=== PATIENT | female | born 1940 | race Caucasian/White ===

== ENCOUNTER → 2016-08-11 | Outpatient (CLI) | payer MEDICARE, BC ==
[~2016-08-11] MED LIST: DENOSUMAB 60 MG/ML 1 ML SYRINGE SQ ONE
[2016-08-11 07:52] VITALS: BP 168/77; PULSE 54; RESP 18; TEMP 97.6
== END | disposition home or self-care (01) ==
LOC: PROCWHC3 07:12
PROVIDERS: ATTEND Physician Assistant
DX: M81.0 Age-related osteoporosis without current pathological fracture (principal)
CPT/HCPCS: 96372; J0897

== ENCOUNTER → 2017-01-02 | Outpatient (CLI) | payer MEDICARE, BC ==
--- NOTE | 2017-01-03 10:35 | MM ---
Reason for exam: screening (asymptomatic). Last mammogram was performed 1 year ago. History: Patient is postmenopausal. Took estrogen for 5 years 1 month. Physical Findings: A clinical breast exam by your physician is recommended on an annual basis and results should be correlated with mammographic findings. MG 3D Screening Mammo W/Cad Bilateral CC and MLO view(s) were taken. Prior study comparison: December 31, 2015, bilateral MG 3d screening mammo w/cad. December 18, 2014, bilateral MG screening mammo w CAD. December 17, 2013, bilateral MG screening mammo w CAD. There are scattered fibroglandular densities. There is no discrete abnormality. ASSESSMENT: Negative, BI-RAD 1 RECOMMENDATION: Routine screening mammogram of both breasts in 1 year.
== END ==
LOC: RADMAMWWP 07:13
PROVIDERS: ATTEND Family Medicine
DX: Z12.31 Encounter for screening mammogram for malignant neoplasm of breast (principal)
CPT/HCPCS: 77063; G0202

== ENCOUNTER → 2017-02-23 | Outpatient (CLI) | payer MEDICARE, BC ==
[2017-02-23 10:22] VITALS: BP 145/67; RESP 16; TEMP 98.7
== END ==
LOC: PROCWHC3 10:02
PROVIDERS: ATTEND Family Medicine
DX: M81.0 Age-related osteoporosis without current pathological fracture (principal)
CPT/HCPCS: 96372; J0897

== ENCOUNTER → 2017-08-24 | Outpatient (CLI) | payer MEDICARE, BC ==
[2017-08-24 10:25] VITALS: BP 152/67; PULSE 74; RESP 16; TEMP 97.8
== END | disposition home or self-care (01) ==
LOC: PROCWHC3 10:04
PROVIDERS: ATTEND Family Medicine
DX: M81.0 Age-related osteoporosis without current pathological fracture (principal)
CPT/HCPCS: 96372; J0897

== ENCOUNTER → 2018-01-18 | Outpatient (CLI) | payer MEDICARE, BC ==
--- NOTE | 2018-01-24 09:49 | MM ---
Reason for exam: screening (asymptomatic). Last mammogram was performed 1 year and 1 month ago. History: Patient is postmenopausal. Took estrogen for 5 years 1 month. Physical Findings: A clinical breast exam by your physician is recommended on an annual basis and results should be correlated with mammographic findings. MG 3D Screening Mammo W/Cad Bilateral CC and MLO view(s) were taken. Prior study comparison: January 02, 2017, bilateral MG 3d screening mammo w/cad. December 31, 2015, bilateral MG 3d screening mammo w/cad. There are scattered fibroglandular densities. No significant changes when compared with prior studies. ASSESSMENT: Benign, BI-RAD 2 RECOMMENDATION: Routine screening mammogram of both breasts in 1 year.
== END | disposition home or self-care (01) ==
LOC: RADMAMWWP 13:43
PROVIDERS: ATTEND Family Medicine
DX: Z12.31 Encounter for screening mammogram for malignant neoplasm of breast (principal); Z78.0 Asymptomatic menopausal state
CPT/HCPCS: 77063; 77067

== ENCOUNTER → 2018-01-31 | Outpatient (CLI) | payer MEDICARE, BC ==
--- NOTE | 2018-01-31 17:39 | BD ---
EXAMINATION TYPE: Axial Bone Density DATE OF EXAM: 01/31/2018 COMPARISON: 2016 CLINICAL HISTORY: 77-year-old female screening, post menopausal without HRT Height: 5'1 Weight: 134 FRAX RISK QUESTIONS: Secondary Osteoporosis: RISK FACTORS HISTORY OF: Surgery to Spine/): l sp When: 40 years ago Postmenopausal woman: Lost more than 2 inches in height since high school: MEDICATIONS: Osteoporosis Medications: Which medication: shots How Lon years Additional Medications: blood pressure, cholesterol, pain Additional History: EXAM MEASUREMENTS: Bone mineral densitometry was performed using the [employer] System. Bone mineral density about the R hip (g/cm2): 0.724 Bone mineral density about the L hip (g/cm2): 0.808 T Score values are as follows: -----R Neck: -2.3 -----L Neck: -1.7 -----R Total: -2.8 -----L Total: -2.5 Bone mineral density has: Decreased -1.9% since study of: 12/31/2015 Bone mineral density about the L Wrist (g/cm2): 0.570 T Score values are as follows: -----Dist. R+U: -1.9 -----Prox. R+U: -2.0 -----Radius total: -1.7 IMPRESSION: Osteoporosis (T Score less than -2.5). There is increased fracture risk and therapy is usually indicated based on age. Re-Screen 1-2 years. NOTE: T-SCORE=SD OF THE YOUNG ADULT MEAN.
== END | disposition home or self-care (01) ==
LOC: RADBDWWP 06:52
PROVIDERS: ATTEND Family Medicine
DX: M81.0 Age-related osteoporosis without current pathological fracture (principal); Z78.0 Asymptomatic menopausal state
CPT/HCPCS: 77080

== ENCOUNTER → 2018-03-01 | Outpatient (CLI) | payer MEDICARE, BC ==
[2018-03-01 12:16] VITALS: BP 169/77; PULSE 66; RESP 16; TEMP 98
== END | disposition home or self-care (01) ==
LOC: PROCWHC3 11:35
PROVIDERS: ATTEND Family Medicine
DX: M81.0 Age-related osteoporosis without current pathological fracture (principal)
CPT/HCPCS: 96372; J0897

== ENCOUNTER → 2018-09-25 | Outpatient (CLI) | payer MEDICARE, BC ==
[2018-09-25 13:52] VITALS: BP 168/77; PULSE 60; RESP 16; TEMP 97.8
== END | disposition home or self-care (01) ==
LOC: PROCWHC3 13:16
PROVIDERS: ATTEND Family Medicine
DX: M81.0 Age-related osteoporosis without current pathological fracture (principal)
CPT/HCPCS: 96372; J0897

== ENCOUNTER → 2019-02-07 | Outpatient (CLI) | payer MEDICARE, BC ==
--- NOTE | 2019-02-08 09:03 | MM ---
Reason for exam: screening (asymptomatic). Last mammogram was performed 1 year and 1 month ago. History: Patient is postmenopausal. Took estrogen for 5 years 1 month. Physical Findings: A clinical breast exam by your physician is recommended on an annual basis and results should be correlated with mammographic findings. MG 3D Screening Mammo W/Cad Bilateral CC and MLO view(s) were taken. Prior study comparison: January 18, 2018, bilateral MG 3d screening mammo w/cad. January 02, 2017, bilateral MG 3d screening mammo w/cad. There are scattered fibroglandular densities. No suspicious abnormality. No significant changes when compared with prior studies. ASSESSMENT: Negative, BI-RAD 1 RECOMMENDATION: Routine screening mammogram of both breasts in 1 year.
== END | disposition home or self-care (01) ==
LOC: RADMAMWWP 08:59
PROVIDERS: ATTEND Family Medicine
DX: Z12.31 Encounter for screening mammogram for malignant neoplasm of breast (principal)
CPT/HCPCS: 77063; 77067

== ENCOUNTER → 2019-12-05 | Outpatient (CLI) | payer MEDICARE, BC ==
--- NOTE | 2019-12-05 10:07 | XR ---
EXAMINATION TYPE: XR knee complete RT DATE OF EXAM: 12/05/2019 COMPARISON: NONE HISTORY: Right knee pain TECHNIQUE: Three views are submitted. FINDINGS: Diffuse osteopenia with changes of chondrocalcinosis. There is arthropathy of the tricompartment join t spaces. Small suprapatellar bursal fluid collection. There is a linear lucency involving the articu lar portion of the medial tibia with no evidence of depression. IMPRESSION: 1. CT scan is recommended to assess the medial tibial plateau. There is a questionable linear lucency along the articular surface. 2. Diffuse osteopenia with arthropathy.
== END | disposition home or self-care (01) ==
LOC: RADXRMAIN 09:42
PROVIDERS: ATTEND Nurse Practitioner Family
DX: M85.861 Other specified disorders of bone density and structure, right lower leg (principal); M12.861 Other specific arthropathies, not elsewhere classified, right knee

== ENCOUNTER → 2019-12-16 | Outpatient (CLI) | payer MEDICARE, BC ==
--- NOTE | 2019-12-16 12:52 | CT ---
EXAMINATION TYPE: CT knee RT wo con DATE OF EXAM: 12/16/2019 COMPARISON: Right knee x-ray 05/15/2020 HISTORY: Right knee pain CT DLP: 374.7 mGycm Automated exposure control for dose reduction was used. FINDINGS: No significant joint effusion is evident. Small osseous spurs along the lateral patella. Lateral fem oral condylar spurring is noted. Some calcification is within the meniscus of the lateral meniscus. Minimal calcification within the m edial meniscus is present. No suspicious changes to suggest fracture identified. Three-D reconstructed images are performed. IMPRESSION: 1. ACUTE OR SUBACUTE FRACTURES EVIDENT. 2. MENISCAL CALCIFICATION PREDOMINANTLY LATERAL. CORRELATE FOR CALCIUM PYROPHOSPHATE DEPOSITION DISEA SE.
== END | disposition home or self-care (01) ==
LOC: RADCTMAIN 06:58
PROVIDERS: ATTEND Family Medicine
DX: M25.569 Pain in unspecified knee (principal)

== ENCOUNTER → 2020-04-02 | Outpatient (CLI) | payer MEDICARE, BC ==
--- NOTE | 2020-04-02 11:45 | MM ---
Reason for exam: screening (asymptomatic). Last mammogram was performed 1 year and 2 months ago. History: Patient is postmenopausal. Took estrogen for 5 years 1 month. Physical Findings: A clinical breast exam by your physician is recommended on an annual basis and results should be correlated with mammographic findings. MG 3D Screening Mammo W/Cad Bilateral CC and MLO view(s) were taken. XCCL view(s) were taken of the right breast. Prior study comparison: February 07, 2019, bilateral MG 3d screening mammo w/cad. January 18, 2018, bilateral MG 3d screening mammo w/cad. There are scattered fibroglandular densities. There is no discrete abnormality. ASSESSMENT: Negative, BI-RAD 1 RECOMMENDATION: Routine screening mammogram of both breasts in 1 year.
== END | disposition home or self-care (01) ==
LOC: RADMAMWWP 09:03
PROVIDERS: ATTEND Family Medicine
DX: Z12.31 Encounter for screening mammogram for malignant neoplasm of breast (principal)
CPT/HCPCS: 77063; 77067

== ENCOUNTER → 2020-05-14 | Outpatient (CLI) | payer MEDICARE, BC ==
--- NOTE | 2020-05-14 12:46 | BD ---
EXAMINATION TYPE: Axial Bone Density DATE OF EXAM: 05/14/2020 COMPARISON: NONE CLINICAL HISTORY: M [age] Height: 61.5 Weight: 130.8 FRAX RISK QUESTIONS: Alcohol (3 or more units per day): no Family History (Parent hip fracture): no Glucocorticoids (More than 3mos): no (Ex: prednisone, prednisolone, methylprednisolone, dexamethasone, and hydrocortisone). History of Fracture in Adulthood: no Secondary Osteoporosis: 1. Type 1 Diabetes: no 2. Hyperthyroidism: no 3. Menopause before 45: no 4. Malnutrition: no 5. Chronic liver disease: no Rheumatoid Arthritis: no Current Tobacco Use: no RISK FACTORS HISTORY OF: Spine Fracture: lumbar When: as a child Surgery to Spine/Hip(right/left)/Wrist (right/left): l spine When: 40 years ago Family History of Osteoporosis: no Active: yes Diet low in dairy products/other sources of calcium: yes Postmenopausal woman: around age 50 Lost more than 2 inches in height since high school: yes MEDICATIONS: cholesterol meds, blood pressure meds, arthritis meds Additional History: EXAM MEASUREMENTS: Bone mineral densitometry was performed using the [employer] System. Bone mineral density about the R hip (g/cm2): 0.754 Bone mineral density about the L hip (g/cm2): 0818 T Score values are as follows: -----R Neck: -2.0 -----L Neck: -1.6 -----R Total: -3.0 -----L Total: -2.1 Bone mineral density has: increased 2.4 % since study of: 01.31.2018 Bone mineral density about the L Wrist (g/cm2): 0.544 T Score values are as follows: -----Dist. R+U: -2.5 -----Prox. R+U: -1.9 -----Radius total: -2.2 Bone mineral density has: increased 0.9 % since study of: 01.31.2018 IMPRESSION: Osteopenia (T Score between -2.5 and -1). There is slightly increased risk of fracture and the patient may be considered for treatment. Re-Screen 2-5 years. NOTE: T-SCORE=SD OF THE YOUNG ADULT MEAN.
== END | disposition home or self-care (01) ==
LOC: RADBDWWP 07:48
PROVIDERS: ATTEND Family Medicine
DX: M85.80 Other specified disorders of bone density and structure, unspecified site (principal)
CPT/HCPCS: 77080

== ENCOUNTER 2021-05-04 17:20 | Emergency (ER) | payer MEDICARE, BC ==
[2021-05-04] MEDS ORDERED: ONDANSETRON 4 MG/2 ML VIAL IVP STA (20:05)
[2021-05-04] MEDS ORDERED: SODIUM CHLORIDE 0.9% 500 ML 500 ML IV STA (20:05)
[2021-05-04] MEDS ORDERED: MORPHINE SULFATE 2 MG/ML SYRINGE IVP STA (20:05)
[2021-05-04 20:08] VITALS: RESP 18; TEMP 102.3
[2021-05-04 20:30] LABS: Basophils % (A) 0 %; Eosinophils # (A) 0.1 k/uL (0-0.7); Eosinophils % (A) 1 %; HCT 38.9 % (34.0-46.0); HGB 13.4 gm/dL (11.4-16.0); Lymphocytes # (A) 0.5 k/uL (1.0-4.8); Lymphocytes % (A) 5 %; MCH 32.6 pg (25.0-35.0); MCHC 34.3 g/dL (31.0-37.0); MCV 94.9 fL (80.0-100.0); Mean Platelet Volume 8.8; Monocytes # (A) 0.4 k/uL (0-1.0); Monocytes % (A) 4 %; Neutrophils # (A) 8.9 k/uL (1.3-7.7); Neutrophils % (A) 90 %; Platelet Count 220 k/uL (150-450)
[2021-05-04 20:33] LABS: Appearance,Urine Clear (Clear); Bilirubin,Urine 1+ (Negative); Blood,Urine Negative (Negative); Color,Urine Dark Yellow; Glucose,Urine (UA) Negative (Negative); Ketones,Urine Negative (Negative); Leukocyte Esterase,Urine Moderate (Negative); Mucus,Urine Rare /hpf; Nitrite,Urine Negative (Negative); PH, Urine 5.5 (5.0-8.0); Protein,Urine 1+ (Negative); RBC,Urine 2 /hpf (0-5); Specific Gravity,Urine 1.024 (1.001-1.035); Squamous Epithelial Cell,Urine <1 /hpf (0-4); WBC,Urine 4 /hpf (0-5)
[2021-05-04 20:47] LABS: Albumin 3.7 g/dL (3.5-5.0); Calcium 8.8 mg/dL (8.4-10.2); Total Bilirubin 4.2 mg/dL (0.2-1.3); Total Protein 6.9 g/dL (6.3-8.2)
[2021-05-04 21:02] LABS: Potassium 4.1 mmol/L (3.5-5.1)
--- NOTE | 2021-05-04 21:56 | CT ---
EXAMINATION TYPE: CT abdomen pelvis w con DATE OF EXAM: 05/04/2021 COMPARISON: None HISTORY: upper abd pain CT DLP: 738.2 mGycm Automated exposure control for dose reduction was used. CONTRAST: Performed with IV Contrast, patient injected with 100 mL of Isovue 300. Images obtained from the diaphragm to the floor the pelvis with IV contrast. There is subsegmental atelectasis at the lung bases. Heart is enlarged. There is no pericardial effus ion. Gallbladder is large and measures 4.6 m in diameter. Bile ducts are not dilated. Liver shows no focal defect. Spleen is intact. There is no pancreatic mass. There is no adrenal mass. Kidneys show satisfactory contrast opacification. There is no hydronephrosi s. Bladder distends smoothly. There is no inguinal hernia. There is numerous sigmoid diverticula. The re is no diverticulitis. The lumbar vertebra show a dextroscoliotic deformity. There is multilevel spondylotic changes. There is no compression fracture. There is posterior fusion surgery in the lower lumbar spine. The bony pel vis is intact. Hip joints are intact. IMPRESSION: Lumbar dextroscoliosis and spondylotic changes. Sigmoid diverticulosis. Large gallbladder could relat e to gallbladder dysfunction.
[2021-05-04] MEDS ORDERED: ACETAMINOPHEN TAB 500 MG TAB PO STA (22:07)
[2021-05-04] MEDS ORDERED: PIPERACILLIN-TAZOBACTAM 3.375 GM in SODIUM CHLORIDE 0.9% 100 ML IVPB ONE (22:15)
--- NOTE | 2021-05-04 22:57 | ED ---
Abdominal Pain HPI - General Chief Complaint: Abdominal Pain Stated Complaint: abd pain Time Seen by Provider: 05/04/21 19:21 Source: patient Mode of arrival: ambulatory Limitations: no limitations - History of Present Illness Initial Comments: 81 year-old female patient presents for one week history of upper abdominal pain, nausea, and vomiting. States that today pain worsened so she came in for evaluation. She denies radiation of pain to her back. Denies known fever or chills. Denies chest pain or shortness of breath. She denies any hematuria, dys uria, urinary frequency, urinary urgency. Denies any constipation or diarrhea. Denies history of abdominal surgery. Patient denies any recent rash, cough, back pain, numbness, tingling, dizziness, weakness, headache, visual changes, or any other complaints. - Related Data Home Medications Medication Instructions Recorded Confirmed Meloxicam 7.5 mg PO BID 02/04/16 05/04/21 Calcium Carbonate/Vitamin D3 1 tab PO DAILY 08/11/16 05/04/21 [Calcium 600-Vit D3 400 Caplet] Cetirizine HCl [Zyrtec] 10 mg PO HS 08/11/16 05/04/21 Montelukast [Singulair] 10 mg PO HS 08/11/16 05/04/21 Simvastatin [Zocor] 40 mg PO HS 08/11/16 05/04/21 Acetaminophen/Diphenhydramine 1 tab PO HS 06/09/17 05/04/21 [Tylenol PM 500-25mg] Ascorbic Acid [Vitamin C] 1,000 mg PO DAILY 06/09/17 05/04/21 Multivit with Calcium,Iron,Min 1 tab PO DAILY 06/09/17 05/04/21 [Women's Multivitamin] Cholecalciferol [Vitamin D3 (25 50 mcg PO DAILY 05/04/21 05/04/21 Mcg = 1000 Iu)] Escitalopram [Lexapro] 10 mg PO DAILY 05/04/21 05/04/21 Mirabegron [Myrbetriq] 25 mg PO DAILY 05/04/21 05/04/21 Vit C/E/Zn/Coppr/Lutein/Zeaxan 1 cap PO BID 05/04/21 05/04/21 [Preservision Areds 2 Softgel] Allergies Allergy/AdvReac Type Severity Reaction Status Date / Time cephalexin monohydrate Allergy Rash/Hives Verified 05/04/21 21:50 [From Keflex] Review of Systems ROS Statement: Those systems with pertinent positive or pertinent negative responses have been documented in the HPI. ROS Other: All systems not noted in ROS Statement are negative. Past Medical History Past Medical History: Hypertension Additional Past Medical History / Comment(s): OSTEOPOROSIS History of Any Multi-Drug Resistant Organisms: None Reported Past Surgical History: Adenoidectomy, Appendectomy, Back Surgery, Hysterectomy, Tonsillectomy Past Anesthesia/Blood Transfusion Reactions: No Reported Reaction Past Psychological History: Anxiety Smoking Status: Never smoker Past Alcohol Use History: None Reported Past Drug Use History: None Reported - Past Family History Father Family Medical History: Coronary Artery Disease (CAD) Additional Family Medical History / Comment(s): ETOH Mother Family Medical History: Coronary Artery Disease (CAD) Brother(s) Family Medical History: Coronary Artery Disease (CAD), Dementia Additional Family Medical History / Comment(s): ONE BROTHER - SELF CATH Sister(s) Family Medical History: Dementia, Diabetes Mellitus Additional Family Medical History / Comment(s): ONE SISTER - PARANOID SCHIZO General Exam Limitations: no limitations General appearance: alert, in no apparent distress Eye exam: Present: normal appearance, PERRL, EOMI. Absent: scleral icterus, conjunctival injection, periorbital swelling ENT exam: Present: normal exam, normal oropharynx, mucous membranes moist Respiratory exam: Present: normal lung sounds bilaterally. Absent: respiratory distress, wheezes, rales, rhonchi, stridor Cardiovascular Exam: Present: tachycardia, irregular rhythm, normal heart sounds. Absent: systolic murmur, diastolic murmur, rubs, gallop, clicks GI/Abdominal exam: Present: soft, tenderness (Midepigastric), normal bowel sounds. Absent: distended, guarding, rebound, rigid Neurological exam: Present: alert, oriented X3, CN II-XII intact Psychiatric exam: Present: normal affect, normal mood Skin exam: Present: warm, dry, intact, normal color. Absent: rash Course Vital Signs 05/04/21 05/04/21 05/04/21 17:25 20:06 21:44 Temperature 98.1 F 102.3 F H Pulse Rate 90 120 H 91 Respiratory 20 18 18 Rate Blood Pressure 156/87 102/72 99/54 O2 Sat by Pulse 100 98 96 Oximetry Medical Decision Making - Medical Decision Making 81-year-old female patient presented to the emergency department today for evaluation of midepigastric abdominal pain and nausea for the last week. Physical examination did reveal midepigastric tenderness. Labs reviewed and did reveal bilirubin 4.2, AST 2:15, a LT 374, alk phos 261. Lipase is elevated at 870. Urinalysis showed no sign of infection. She tested negative for COVID-19. Upon arrival patient was febrile 10 2F. She was found to be A. fib on EKG. She is given IV fluids, pain medication, antipyretic. Upon reevaluation seems that she has to converted to sinus rhythm on the monitor. We will start antibiotics. We do not have GI coverage at this time. Gerardo Summers refused transfer at this time. Dr. Adonis Rose did accept transfer to [facility]. Patient is agreeable with this plan. - Lab Data Result diagrams: 05/04/21 20:09 05/04/21 20:09 Lab Results 05/04/21 05/04/21 05/04/21 Range/Units 20:09 20:09 20:09 WBC 10.0 (3.8-10.6) k/uL RBC 4.10 (3.80-5.40) m/uL Hgb 13.4 (11.4-16.0) gm/dL Hct 38.9 (34.0-46.0) % MCV 94.9 (80.0-100.0) fL MCH 32.6 (25.0-35.0) pg MCHC 34.3 (31.0-37.0) g/dL RDW 14.0 (11.5-15.5) % Plt Count 220 (150-450) k/uL MPV 8.8 Neutrophils % 90 % Lymphocytes % 5 % Monocytes % 4 % Eosinophils % 1 % Basophils % 0 % Neutrophils # 8.9 H (1.3-7.7) k/uL Lymphocytes # 0.5 L (1.0-4.8) k/uL Monocytes # 0.4 (0-1.0) k/uL Eosinophils # 0.1 (0-0.7) k/uL Basophils # 0.0 (0-0.2) k/uL Sodium 137 (137-145) mmol/L Potassium 4.1 (3.5-5.1) mmol/L Chloride 107 (98-107) mmol/L Carbon Dioxide 20 L (22-30) mmol/L Anion Gap 10 mmol/L BUN 33 H (7-17) mg/dL Creatinine 0.76 (0.52-1.04) mg/dL Est GFR (CKD-EPI)AfAm 86 (>60 ml/min/1.73 sqM) Est GFR (CKD-EPI)NonAf 74 (>60 ml/min/1.73 sqM) Glucose 113 H (74-99) mg/dL Plasma Lactic Acid Marcos (0.7-2.0) mmol/L Calcium 8.8 (8.4-10.2) mg/dL Total Bilirubin 4.2 H (0.2-1.3) mg/dL AST 215 H (14-36) U/L ALT 374 H (4-34) U/L Alkaline Phosphatase 261 H (38-126) U/L Troponin I (0.000-0.034) ng/mL Total Protein 6.9 (6.3-8.2) g/dL Albumin 3.7 (3.5-5.0) g/dL Lipase 870 H (23-300) U/L TSH (0.465-4.680) mIU/L Urine Color Dark Yellow Urine Appearance Clear (Clear) Urine pH 5.5 (5.0-8.0) Ur Specific Justice 1.024 (1.001-1.035) Urine Protein 1+ H (Negative) Urine Glucose (UA) Negative (Negative) Urine Ketones Negative (Negative) Urine Blood Negative (Negative) Urine Nitrite Negative (Negative) Urine Bilirubin 1+ H (Negative) Urine Urobilinogen 3.0 (<2.0) mg/dL Ur Leukocyte Esterase Moderate H (Negative) Urine RBC 2 (0-5) /hpf Urine WBC 4 (0-5) /hpf Ur Squamous Epith Cells <1 (0-4) /hpf Urine Mucus Rare H (None) /hpf Coronavirus (PCR) (Not Detectd) 05/04/21 05/04/21 05/04/21 Range/Units 20:09 20:09 20:09 WBC (3.8-10.6) k/uL RBC (3.80-5.40) m/uL Hgb (11.4-16.0) gm/dL Hct (34.0-46.0) % MCV (80.0-100.0) fL MCH (25.0-35.0) pg MCHC (31.0-37.0) g/dL RDW (11.5-15.5) % Plt Count (150-450) k/uL MPV Neutrophils % % Lymphocytes % % Monocytes % % Eosinophils % % Basophils % % Neutrophils # (1.3-7.7) k/uL Lymphocytes # (1.0-4.8) k/uL Monocytes # (0-1.0) k/uL Eosinophils # (0-0.7) k/uL Basophils # (0-0.2) k/uL Sodium (137-145) mmol/L Potassium (3.5-5.1) mmol/L Chloride (98-107) mmol/L Carbon Dioxide (22-30) mmol/L Anion Gap mmol/L BUN (7-17) mg/dL Creatinine (0.52-1.04) mg/dL Est GFR (CKD-EPI)AfAm (>60 ml/min/1.73 sqM) Est GFR (CKD-EPI)NonAf (>60 ml/min/1.73 sqM) Glucose (74-99) mg/dL Plasma Lactic Acid Marcos 1.4 (0.7-2.0) mmol/L Calcium (8.4-10.2) mg/dL Total Bilirubin (0.2-1.3) mg/dL AST (14-36) U/L ALT (4-34) U/L Alkaline Phosphatase (38-126) U/L Troponin I 0.026 (0.000-0.034) ng/mL Total Protein (6.3-8.2) g/dL Albumin (3.5-5.0) g/dL Lipase (23-300) U/L TSH 2.320 (0.465-4.680) mIU/L Urine Color Urine Appearance (Clear) Urine pH (5.0-8.0) Ur Specific Justice (1.001-1.035) Urine Protein (Negative) Urine Glucose (UA) (Negative) Urine Ketones (Negative) Urine Blood (Negative) Urine Nitrite (Negative) Urine Bilirubin (Negative) Urine Urobilinogen (<2.0) mg/dL Ur Leukocyte Esterase (Negative) Urine RBC (0-5) /hpf Urine WBC (0-5) /hpf Ur Squamous Epith Cells (0-4) /hpf Urine Mucus (None) /hpf Coronavirus (PCR) (Not Detectd) 05/04/21 Range/Units 20:11 WBC (3.8-10.6) k/uL RBC (3.80-5.40) m/uL Hgb (11.4-16.0) gm/dL Hct (34.0-46.0) % MCV (80.0-100.0) fL MCH (25.0-35.0) pg MCHC (31.0-37.0) g/dL RDW (11.5-15.5) % Plt Count (150-450) k/uL MPV Neutrophils % % Lymphocytes % % Monocytes % % Eosinophils % % Basophils % % Neutrophils # (1.3-7.7) k/uL Lymphocytes # (1.0-4.8) k/uL Monocytes # (0-1.0) k/uL Eosinophils # (0-0.7) k/uL Basophils # (0-0.2) k/uL Sodium (137-145) mmol/L Potassium (3.5-5.1) mmol/L Chloride (98-107) mmol/L Carbon Dioxide (22-30) mmol/L Anion Gap mmol/L BUN (7-17) mg/dL Creatinine (0.52-1.04) mg/dL Est GFR (CKD-EPI)AfAm (>60 ml/min/1.73 sqM) Est GFR (CKD-EPI)NonAf (>60 ml/min/1.73 sqM) Glucose (74-99) mg/dL Plasma Lactic Acid Marcos (0.7-2.0) mmol/L Calcium (8.4-10.2) mg/dL Total Bilirubin (0.2-1.3) mg/dL AST (14-36) U/L ALT (4-34) U/L Alkaline Phosphatase (38-126) U/L Troponin I (0.000-0.034) ng/mL Total Protein (6.3-8.2) g/dL Albumin (3.5-5.0) g/dL Lipase (23-300) U/L TSH (0.465-4.680) mIU/L Urine Color Urine Appearance (Clear) Urine pH (5.0-8.0) Ur Specific Justice (1.001-1.035) Urine Protein (Negative) Urine Glucose (UA) (Negative) Urine Ketones (Negative) Urine Blood (Negative) Urine Nitrite (Negative) Urine Bilirubin (Negative) Urine Urobilinogen (<2.0) mg/dL Ur Leukocyte Esterase (Negative) Urine RBC (0-5) /hpf Urine WBC (0-5) /hpf Ur Squamous Epith Cells (0-4) /hpf Urine Mucus (None) /hpf Coronavirus (PCR) Not Detected (Not Detectd) - EKG Data -: EKG Interpreted by Me EKG Comments: EKG obtained at 2030 shows A. fib with RVR with a rate of 135, QR congregational 98, QT 324, QTC 486. No evidence of ST elevation or depression. EKG #2 obtained at 23 shows normal sinus rhythm with a ventricular rate of 89, WI interval 168, QR congregational 94, QT 360, QTC 438. No evidence of ST elevation or depression. - Radiology Data Radiology results: report reviewed, image reviewed CT abdomen and pelvis with contrast was obtained. Report reviewed in its entirety. Impression by Dr. Bhakta shows lumbar dextroscoliosis spondylotic changes. Sigmoid diverticulosis. Large gallbladder could relate to gallbladder dysfunction. Disposition Clinical Impression: Choledocholithiasis, Cholecystitis Disposition: OTHER INSTITUTION NOT DEFINED Condition: Serious Referrals: Mazin Kumar MD [Primary Care Provider] - 1-2 days - Out of Hospital Transfer - Req. Specs Out of Hospital Transfer - Requested Specifics: Other Emergency Center ([facility])
[2021-05-05 00:50] VITALS: BP 124/65; PULSE 89
[2021-05-05] MEDS ORDERED: PIPERACILLIN-TAZOBACTAM 3.375 GM in SODIUM CHLORIDE 0.9% 100 ML IVPB SCH ×3 (09:00)
== END 2021-05-05 01:11 | disposition other institution (70) ==
LOC: EC 17:20
DX: K80.50 Calculus of bile duct without cholangitis or cholecystitis without obstruction (principal); I10 Essential (primary) hypertension; M81.0 Age-related osteoporosis without current pathological fracture; F41.9 Anxiety disorder, unspecified; Z88.1 Allergy status to other antibiotic agents; Z90.49 Acquired absence of other specified parts of digestive tract; Z90.710 Acquired absence of both cervix and uterus; Z90.89 Acquired absence of other organs; Z20.822 Contact with and (suspected) exposure to COVID-19
CPT/HCPCS: 99285; 96374; 96375; 36415; 93005; 80053; 84443; 83605; 83690; 84484; 85025; 81001; 87635; 74177; J2543; J2405; J2270; Q9967

== ENCOUNTER → 2021-07-08 | Outpatient (CLI) | payer MEDICARE, BC ==
--- NOTE | 2021-07-12 10:36 | MM ---
Reason for exam: screening (asymptomatic). Last mammogram was performed 1 year and 3 months ago. History: Patient is postmenopausal. Took estrogen for 5 years 1 month. Physical Findings: A clinical breast exam by your physician is recommended on an annual basis and results should be correlated with mammographic findings. MG 3D Screening Mammo W/Cad Bilateral CC and MLO view(s) were taken. Prior study comparison: April 02, 2020, bilateral MG 3d screening mammo w/cad. February 07, 2019, bilateral MG 3d screening mammo w/cad. There are scattered fibroglandular densities. New central anterior asymmetric density left CC view anterior to middle depth. ASSESSMENT: Incomplete: need additional imaging evaluation, BI-RAD 0 RECOMMENDATION: Special view mammogram of the left breast. (3D) If lesion persists on supplemental views, image directed ultrasound is recommended. [facility] will attempt to contact patient to return for supplemental views and ultrasound if indicated.
== END | disposition home or self-care (01) ==
LOC: RADMAMWWP 09:57
PROVIDERS: ATTEND Family Medicine
DX: Z12.31 Encounter for screening mammogram for malignant neoplasm of breast (principal); Z78.0 Asymptomatic menopausal state
CPT/HCPCS: 77063; 77067

== ENCOUNTER → 2021-07-15 | Outpatient (CLI) | payer MEDICARE, BC ==
--- NOTE | 2021-07-15 11:12 | MM ---
Reason for exam: additional evaluation requested from abnormal screening. Last mammogram was performed less than 1 month ago. History: Patient is postmenopausal. Took estrogen for 5 years 1 month. Physical Findings: Nurse did not find any significant physical abnormalities on exam. MG 3D Work Up W/Cad LT Spot compression CC, spot compression MLO, and ML view(s) were taken of the left breast. Prior study comparison: July 08, 2021, bilateral MG 3d screening mammo w/cad. April 02, 2020, bilateral MG 3d screening mammo w/cad. The breast tissue is heterogeneously dense. This may lower the sensitivity of mammography. These results were verbally communicated with the patient and result sheet given to the patient on 07/15/21. ASSESSMENT: Probably benign, BI-RAD 3 RECOMMENDATION: Follow-up diagnostic mammogram of the left breast in 6 months.
== END | disposition home or self-care (01) ==
LOC: RADMAMWWP 08:52
PROVIDERS: ATTEND Family Medicine
DX: R92.8 Other abnormal and inconclusive findings on diagnostic imaging of breast (principal); Z78.0 Asymptomatic menopausal state
CPT/HCPCS: 77065; G0279; 77061

== ENCOUNTER → 2021-10-21 | Outpatient (CLI) | payer MEDICARE, BC ==
--- NOTE | 2021-10-21 16:59 | XR ---
EXAMINATION TYPE: XR chest 2V DATE OF EXAM: 10/21/2021 COMPARISON: Chest x-ray 09/30/2021 HISTORY: I 11.0 TECHNIQUE: Frontal and lateral views of the chest are obtained. FINDINGS: There is no focal air space opacity, pleural effusion, or pneumothorax seen. The cardiac silhouette size is within normal limits. The osseous structures are intact, metallic screw is prese nt posterior to the upper lumbar spine. There is some elevation of right hemidiaphragm as on prior. T horacic spondylosis is noted, there may be a spinal curvature. IMPRESSION: No acute cardiopulmonary process. There is improvement in aeration as compared to prior exam.
== END | disposition home or self-care (01) ==
LOC: RADXRMAIN 15:23
PROVIDERS: ATTEND Family Medicine
DX: I11.0 Hypertensive heart disease with heart failure (principal); I50.9 Heart failure, unspecified
CPT/HCPCS: 71046

== ENCOUNTER → 2021-11-18 | Day surgery (SDC) | payer MEDICARE, BC ==
[2021-11-17 10:21] VITALS: BMI 24.0
[~2021-11-18] MED LIST changes: +ALPRAZolam 0.25 MG TAB PO PRN; +ALPRAZolam 0.5 MG TAB PO PRN; +ASPIRIN 325 MG TAB PO ONE; +ATORVASTATIN 80 MG TAB PO ONE; -DENOSUMAB 60 MG/ML 1 ML SYRINGE SQ ONE; +HEPARIN SODIUM 1,000 UN/ML (10ML VL) IV ONE; +HEPARIN SODIUM 1,000 UN/ML (10ML VL) ONE; +HEPARIN SODIUM,PORCINE 10,000 UNIT in SODIUM CHLORIDE 0.9% 1,000 ML IRRIGATION PRN; +HEPARIN SODIUM,PORCINE 2,500 UNIT in SODIUM CHLORIDE 0.9% 250 ML IRRIGATION PRN; +IOPAMIDOL-370 125ML BTL INJ ONE; +LIDOCAINE 1% PF 10 MG/ML (5 ML AMP) SQ ONE; +MIDAZOLAM 2 MG/2 ML VIAL IV ONE; +NITROGLYCERIN SL TABS 0.4 MG TAB SUBLINGUAL PRN; +SODIUM CHLORIDE 0.9% 1,000 ML in EMPTY BAG 1 BAG IV ONE; +VERAPAMIL 2.5 MG/ML 2 ML AMP ONE; +VERAPAMIL SYRINGE (5 MG/10 ML) INTRAARTER ONE; +fentaNYL (PF) 50 MCG/ML 2 ML AMP IV ONE; +fentaNYL (PF) 50 MCG/ML 2 ML AMP ONE
[2021-11-18 06:44] VITALS: RESP 16; TEMP 97.4
--- NOTE | 2021-11-18 07:53 | P.CARDCATH ---
Description of Procedure: PROCEDURES PERFORMED: Left heart catheterization, bilateral coronary angiography INDICATION: Cardiomyopathy CONSENT:I have discussed the risks, benefits and alternative therapies for the above-mentioned procedure and for both sedation/analgesia as well as necessary blood product administration, if indicated, as they pertain to this patient. The patient has indicated understanding and acceptance of the risks and procedures discussed. PROCEDURE: After the risks, benefits and alternatives of the above mentioned procedure explained in detail with the patient, informed consent was obtained. Patient was taken to the catheterization lab and prepped and draped in usual fashion. 1% lidocaine was used to anesthetize the right radial artery. A 6- Czech sheath was placed in the right radial artery using modified Seldinger technique. Left coronary angiography was performed with a 5-Czech JL 3.5 catheter and right coronary angiography was performed with a 5-Czech JR5 catheter in various views. A 5-Czech FR5 catheter was inserted into the left ventricle and pressure measurements were obtained. The right radial sheath was removed and a TR band was placed with hemostasis achieved. The patient tolerated the procedure well. Patient was transported back to the post catheterization holding area in stable condition. Conscious Sedation: Patient was monitored under the direct supervision of vision of myself for conscious sedation using Versed and fentanyl for a total duration of 17 minutes HEMODYNAMICS: Aortic: 123/77 LV: 125/1, LVEDP 17 SELECTIVE CORONARY ARTERIOGRAPHY: LEFT MAIN: The left main is a large caliber vessel which bifurcates into the LAD and circumflex. There is no significant stenosis. LEFT ANTERIOR DESCENDING CORONARY ARTERY: LAD is a large caliber vessel which wraps around to the apex. There is no significant stenosis. LEFT CIRCUMFLEX CORONARY ARTERY: Left circumflex is a moderate caliber vessel without significant stenosis. RIGHT CORONARY ARTERY: The right coronary artery is a large caliber vessel which gives off a PDA and PLV branch and is the dominant vessel. There is no signific ant stenosis. FINAL IMPRESSION: 1. Normal coronary arteries as described above. 2. Mildly elevated left sided filling pressures PLAN: 1. Aggressive risk factor modification per most recent ACC/AHA guidelines. 2. Follow-up in the office in 1-2 weeks.
[2021-11-18 08:52] VITALS: BP 153/72; PULSE 72
== END ==
LOC: CATHCVL 05:57
PROVIDERS: ATTEND Internal Medicine
DX: I42.9 Cardiomyopathy, unspecified (principal); I48.91 Unspecified atrial fibrillation; I08.1 Rheumatic disorders of both mitral and tricuspid valves; E78.5 Hyperlipidemia, unspecified; Z20.822 Contact with and (suspected) exposure to COVID-19; I11.0 Hypertensive heart disease with heart failure; I50.22 Chronic systolic (congestive) heart failure; Z82.49 Family history of ischemic heart disease and other diseases of the circulatory system; Z79.01 Long term (current) use of anticoagulants; Z79.1 Long term (current) use of non-steroidal anti-inflammatories (NSAID); Z79.899 Other long term (current) drug therapy; Z88.1 Allergy status to other antibiotic agents
CPT/HCPCS: 93458; 87635; C1894; J2250; J2001; J3010; J1644; Q9967

== ENCOUNTER 2021-12-06 04:48 | Emergency (ER) | payer MEDICARE, BC ==
[2021-12-06 04:58] VITALS: BP 134/83; PULSE 90; RESP 19; TEMP 98
--- NOTE | 2021-12-06 05:10 | ED ---
Fall HPI - General Chief Complaint: Fall Stated Complaint: Fall, Hip Injury Time Seen by Provider: 12/06/21 05:03 Source: patient, RN notes reviewed, old records reviewed Mode of arrival: ambulatory Limitations: no limitations - History of Present Illness Initial Comments: This is an 81-year-old female who presents today for evaluation after a fall. Patient had a fall prior to arrival with left hip pain severe left hip pain and tenderness tenderness with movement tenderness with palpation. Patient's presenting about 12 hours after this fall as follows getting out of the car earlier today. 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 Patient took Tylenol which did mildly help. No other injuries noted she has no loss of consciousness maybe some mild elbow pain but that is improved. 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 Witnessed: yes, by family Place Fall Occurred: home Loss of Consciousness: none Prolonged Down Time?: no Symptoms Prior to Fall: none Location - Extremities: Left: Thigh Severity: moderate Severity scale (1-10): 7 Quality: sharp Context: tripped/slipped Associated Symptoms: denies - Related Data Home Medications Medication Instructions Recorded Confirmed Meloxicam 7.5 mg PO BID 02/04/16 11/18/21 Calcium Carbonate/Vitamin D3 1 tab PO DAILY 08/11/16 11/18/21 [Calcium 600-Vit D3 400 Caplet] Cetirizine HCl [Zyrtec] 10 mg PO HS 08/11/16 11/18/21 Montelukast [Singulair] 10 mg PO HS 08/11/16 11/18/21 Simvastatin [Zocor] 40 mg PO HS 08/11/16 11/18/21 Acetaminophen/Diphenhydramine 1 tab PO HS 06/09/17 11/18/21 [Tylenol PM 500-25mg] Ascorbic Acid [Vitamin C] 1,000 mg PO DAILY 06/09/17 11/18/21 Multivit with Calcium,Iron,Min 1 tab PO DAILY 06/09/17 11/18/21 [Women's Multivitamin] Cholecalciferol [Vitamin D3 (25 50 mcg PO DAILY 05/04/21 11/18/21 Mcg = 1000 Iu)] Escitalopram [Lexapro] 10 mg PO DAILY 05/04/21 11/18/21 Mirabegron [Myrbetriq] 25 mg PO DAILY 05/04/21 11/18/21 Vit C/E/Zn/Coppr/Lutein/Zeaxan 1 cap PO BID 05/04/21 11/18/21 [Preservision Areds 2 Softgel] Apixaban [Eliquis] 5 mg PO BID 11/18/21 11/18/21 Furosemide [Lasix] 20 mg PO DAILY 11/18/21 11/18/21 Metoprolol Succinate (ER) [Toprol 25 mg PO DAILY 11/18/21 11/18/21 Xl] Allergies Allergy/AdvReac Type Severity Reaction Status Date / Time cephalexin monohydrate Allergy Rash/Hives Verified 12/06/21 04:58 [From [facility] [employer] [facility]] Review of Systems ROS Statement: Those systems with pertinent positive or pertinent negative responses have been documented in the HPI. ROS Other: All systems not noted in ROS Statement are negative. Past Medical History Past Medical History: Hypertension Additional Past Medical History / Comment(s): OSTEOPOROSIS, "heart doesnt beat right" History of Any Multi-Drug Resistant Organisms: None Reported Past Surgical History: Adenoidectomy, Appendectomy, Back Surgery, Cholecystectomy, Hysterectomy, Tonsillectomy Past Anesthesia/Blood Transfusion Reactions: No Reported Reaction Past Psychological History: Anxiety Smoking Status: Never smoker Past Alcohol Use History: None Reported Past Drug Use History: None Reported - Past Family History Father Family Medical History: Coronary Artery Disease (CAD) Additional Family Medical History / Comment(s): Alcohol Abuse. Mother Family Medical History: Coronary Artery Disease (CAD) Brother(s) Family Medical History: Coronary Artery Disease (CAD), Dementia Additional Family Medical History / Comment(s): ONE BROTHER - SELF CATH Sister(s) Family Medical History: Dementia, Diabetes Mellitus Additional Family Medical History / Comment(s): ONE SISTER - PARANOID SCHIZOPHRENIA. Daughter(s) Family Medical History: Deep Vein Thrombosis (DVT), Pulmonary Embolus General Exam General appearance: alert, in no apparent distress Head exam: Present: atraumatic, normocephalic, normal inspection Eye exam: Present: normal appearance, PERRL, EOMI. Absent: scleral icterus, conjunctival injection, periorbital swelling ENT exam: Present: normal exam, mucous membranes moist Neck exam: Present: normal inspection. Absent: tenderness, meningismus, ly mphadenopathy Respiratory exam: Present: normal lung sounds bilaterally. Absent: respiratory distress, wheezes, rales, rhonchi, stridor Cardiovascular Exam: Present: regular rate, normal rhythm, normal heart sounds. Absent: systolic murmur, diastolic murmur, rubs, gallop, clicks GI/Abdominal exam: Present: soft, normal bowel sounds. Absent: distended, tenderness, guarding, rebound, rigid Extremities exam: Present: normal inspection, full ROM, tenderness (Left hip tenderness), normal capillary refill. Absent: pedal edema, joint swelling, calf tenderness Back exam: Present: normal inspection Neurological exam: Present: alert, oriented X3, CN II-XII intact Psychiatric exam: Present: normal affect, normal mood Skin exam: Present: warm, dry, intact, normal color. Absent: rash Course Vital Signs 12/06/21 04:52 Temperature 98 F Pulse Rate 90 Respiratory 19 Rate Blood Pressure 134/83 O2 Sat by Pulse 98 Oximetry - Reevaluation(s) Reevaluation #1: 12/06/21 05:30 Medical records reviewed Reevaluation #2: 12/06/21 05:30 Patient informed results and questions answered Reevaluation #3: 12/06/21 05:30 Patient continues to refuse anything for pain Medical Decision Making - Medical Decision Making 81 female to the ER status post fall trip and fall while 12 hours prior to arrival. Patient does have contusion left hip unable to stand or ambulate at full strength patient given a work note can be discharged home no fracture she is able to ambulate but it is painful - Radiology Data Radiology results: report reviewed (X-ray pelvis left hip and chest negative for traumatic injury), image reviewed Disposition Clinical Impression: Fall, Contusion of right hip Disposition: HOME SELF-CARE Condition: Good Instructions (If sedation given, give patient instructions): Fall Prevention for Older Adults (ED) Is patient prescribed a controlled substance at d/c from ED?: No Referrals: Mazin Kumar MD [Primary Care Provider] - 1-2 days Time of Disposition: 05:45
--- NOTE | 2021-12-06 05:29 | XR ---
EXAMINATION TYPE: XR chest 1V DATE OF EXAM: 12/06/2021 COMPARISON: 10/21/2021 HISTORY: Pain TECHNIQUE: Single view FINDINGS: There is no heart failure nor confluent pneumonic infiltrate. Costophrenic angles are clear . There are no hilar masses. IMPRESSION: No active cardiopulmonary disease. No change.
--- NOTE | 2021-12-06 05:29 | XR ---
EXAMINATION TYPE: XR Hip LT and AP Pelvis DATE OF EXAM: 12/06/2021 COMPARISON: NONE HISTORY: Pain TECHNIQUE: 3 views FINDINGS: The pelvic ring is intact. Proximal left femur and hip joint appear intact. No fracture see n. Sacroiliac joints are intact. There is previous lower lumbar spine surgery. IMPRESSION: No acute abnormality of the pelvis and left hip.
== END 2021-12-06 05:54 | disposition home or self-care (01) ==
LOC: EC 04:48
DX: S70.01XA Contusion of right hip, initial encounter (principal); I10 Essential (primary) hypertension; Z88.1 Allergy status to other antibiotic agents; W19.XXXA Unspecified fall, initial encounter
CPT/HCPCS: 71045; 73502; 99284

== ENCOUNTER 2021-12-11 13:42 | Inpatient (IN) | payer MEDICARE, BC ==
--- NOTE | 2021-12-11 14:29 | ED ---
General Adult HPI - General Chief complaint: Syncope Stated complaint: SOB/Syncope Time Seen by Provider: 12/11/21 14:10 Source: patient, RN notes reviewed, old records reviewed Mode of arrival: wheelchair Limitations: no limitations - History of Present Illness Initial comments: 81-year-old female presents to the emergency room alert and oriented 4 with complaints of feeling lightheaded and dizzy with near syncope when she was at work at [employer]. Patient states that she does have a history of atrial fibrillation. She states that when she sat down she symptoms resolved within just a few minutes. She denies any chest pain but did have some shortness of breath with nausea. Denies diaphoresis. She states that she recently underwent heart catheterization with Dr. Kellogg in October 2021. She is on eliquis. Patient denies any chest pain or shortness of breath at this time. Family at bedside states patient had a slip and fall on Monday and was seen in the emergency room, x-rays of left hip done at that time and were negative. She did sustain significant bruising to her left buttock and leg. -: days(s) (1) Severity scale (1-10): 0 Associated Symptoms: nausea/vomiting, shortness of breath, syncope (Near syncope), other (Lightheaded) Treatments Prior to Arrival: none - Related Data Home Medications Medication Instructions Recorded Confirmed Meloxicam 7.5 mg PO BID 02/04/16 12/11/21 Calcium Carbonate/Vitamin D3 1 tab PO DAILY 08/11/16 12/11/21 [Calcium 600-Vit D3 400 Caplet] Cetirizine HCl [Zyrtec] 10 mg PO HS 08/11/16 12/11/21 Montelukast [Singulair] 10 mg PO HS 08/11/16 12/11/21 Simvastatin [Zocor] 40 mg PO HS 08/11/16 12/11/21 Acetaminophen/Diphenhydramine 1 tab PO HS 06/09/17 12/11/21 [Tylenol PM 500-25mg] Ascorbic Acid [Vitamin C] 1,000 mg PO DAILY 06/09/17 12/11/21 Multivit with Calcium,Iron,Min 1 tab PO DAILY 06/09/17 12/11/21 [Women's Multivitamin] Cholecalciferol [Vitamin D3 (25 50 mcg PO DAILY 05/04/21 12/11/21 Mcg = 1000 Iu)] Escitalopram [Lexapro] 10 mg PO DAILY 05/04/21 12/11/21 Mirabegron [Myrbetriq] 25 mg PO DAILY 05/04/21 12/11/21 Vit C/E/Zn/Coppr/Lutein/Zeaxan 1 cap PO BID 05/04/21 12/11/21 [Preservision Areds 2 Softgel] Apixaban [Eliquis] 5 mg PO BID 11/18/21 12/11/21 Furosemide [Lasix] 20 mg PO DAILY 11/18/21 12/11/21 Metoprolol Succinate (ER) [Toprol 25 mg PO DAILY 11/18/21 12/11/21 Xl] Amiodarone [Cordarone] See Taper PO DIRECTED 12/11/21 12/11/21 Allergies Allergy/AdvReac Type Severity Reaction Status Date / Time cephalexin monohydrate Allergy Rash/Hives Verified 12/11/21 14:48 [From [employer]] Review of Systems ROS Statement: Those systems with pertinent positive or pertinent negative responses have been documented in the HPI. ROS Other: All systems not noted in ROS Statement are negative. Past Medical History Past Medical History: Atrial Fibrillation, Hypertension Additional Past Medical History / Comment(s): OSTEOPOROSIS, "heart doesnt beat right" History of Any Multi-Drug Resistant Organisms: None Reported Past Surgical History: Adenoidectomy, Appendectomy, Back Surgery, Cholecystectomy, Heart Catheterization, Hysterectomy, Tonsillectomy Past Anesthesia/Blood Transfusion Reactions: No Reported Reaction Past Psychological History: Anxiety Smoking Status: Never smoker Past Alcohol Use History: None Reported Past Drug Use History: None Reported - Past Family History Father Family Medical History: Coronary Artery Disease (CAD) Additional Family Medical History / Comment(s): Alcohol Abuse. Mother Family Medical History: Coronary Artery Disease (CAD) Brother(s) Family Medical History: Coronary Artery Disease (CAD), Dementia Additional Family Medical History / Comment(s): ONE BROTHER - SELF CATH Sister(s) Family Medical History: Dementia, Diabetes Mellitus Additional Family Medical History / Comment(s): ONE SISTER - PARANOID SCHIZOPHRENIA. Daughter(s) Family Medical History: Deep Vein Thrombosis (DVT), Pulmonary Embolus General Exam Limitations: no limitations General appearance: alert, in no apparent distress Head exam: Present: atraumatic, normocephalic Eye exam: Present: normal appearance ENT exam: Present: normal exam, normal oropharynx, mucous membranes moist Neck exam: Present: full ROM. Absent: tenderness, meningismus Respiratory exam: Present: normal lung sounds bilaterally. Absent: respiratory distress, accessory muscle use Cardiovascular Exam: Present: tachycardia GI/Abdominal exam: Present: soft. Absent: distended, tenderness Rectal exam: Present: normal rectal tone. Absent: fecal impaction, mass, tenderness Extremities exam: Present: full ROM, normal capillary refill. Absent: tenderness, pedal edema, calf tenderness Back exam: Present: normal inspection. Absent: tenderness, CVA tenderness (R), CVA tenderness (L), rash noted Neurological exam: Present: alert, oriented X3, normal gait Psychiatric exam: Present: normal affect, normal mood Skin exam: Present: warm, dry, normal color, other (Ecchymosis to the left buttock and left posterior thigh). Absent: cyanosis, diaphoretic, petechiae, pallor Course Vital Signs 12/11/21 13:49 Temperature 98.6 F Pulse Rate 103 H Respiratory 18 Rate Blood Pressure 112/63 O2 Sat by Pulse 99 Oximetry EKG Findings - EKG Comments: EKG Findings:: Neuro complex tachycardia with ventricular rate of 105, suspicious for atrial flutter 2-1. EKG shows QRS 0.114, QTC 0.403 Medical Decision Making - Medical Decision Making Chest x-ray shows no acute cardio pulmonary disease. EKG shows a narrow complex tachycardia, atrial flutter. Troponin is negative at 0.012. Patient's hemoglobin is 9.1 down from November 04.4 BUN and creatinine are elevated patient does have a history of chronic kidney disease and these levels are stable. Patient's near syncope and shortness of breath may be related to her atrial fibrillation versus her anemia. She did undergo a cardiac catheterization with Dr. Kellogg last month. She was placed on eliquis at that time. She also had a recent fall on Monday sustaining significant bruising to her left hip. Case discussed with Dr. Rizo patient will be admitted to the hospital for near syncope, atrial flutter, CKD and anemia. - Lab Data Result diagrams: 12/11/21 13:55 12/11/21 13:55 Lab Results 12/11/21 12/11/21 12/11/21 Range/Units 13:55 13:55 13:55 WBC 9.3 (3.8-10.6) k/uL RBC 2.91 L (3.80-5.40) m/uL Hgb 9.1 L (11.4-16.0) gm/dL Hct 27.4 L (34.0-46.0) % MCV 94.1 (80.0-100.0) fL MCH 31.3 (25.0-35.0) pg MCHC 33.3 (31.0-37.0) g/dL RDW 16.6 H (11.5-15.5) % Plt Count 207 (150-450) k/uL MPV 8.4 Neutrophils % 84 % Lymphocytes % 9 % Monocytes % 4 % Eosinophils % 1 % Basophils % 0 % Neutrophils # 7.8 H (1.3-7.7) k/uL Lymphocytes # 0.9 L (1.0-4.8) k/uL Monocytes # 0.4 (0-1.0) k/uL Eosinophils # 0.1 (0-0.7) k/uL Basophils # 0.0 (0-0.2) k/uL Hypochromasia Slight Anisocytosis Slight PT 13.0 H (9.0-12.0) sec INR 1.2 H (<1.2) APTT 24.8 (22.0-30.0) sec Sodium 143 (137-145) mmol/L Potassium 3.9 (3.5-5.1) mmol/L Chloride 111 H (98-107) mmol/L Carbon Dioxide 24 (22-30) mmol/L Anion Gap 8 mmol/L BUN 48 H (7-17) mg/dL Creatinine 1.26 H (0.52-1.04) mg/dL Est GFR (CKD-EPI)AfAm 46 (>60 ml/min/1.73 sqM) Est GFR (CKD-EPI)NonAf 40 (>60 ml/min/1.73 sqM) Glucose 102 H (74-99) mg/dL Calcium 8.5 (8.4-10.2) mg/dL Total Bilirubin 1.3 (0.2-1.3) mg/dL AST 38 H (14-36) U/L ALT 22 (4-34) U/L Alkaline Phosphatase 72 (38-126) U/L Troponin I (0.000-0.034) ng/mL Total Protein 6.6 (6.3-8.2) g/dL Albumin 4.0 (3.5-5.0) g/dL 12/11/21 Range/Units 13:55 WBC (3.8-10.6) k/uL RBC (3.80-5.40) m/uL Hgb (11.4-16.0) gm/dL Hct (34.0-46.0) % MCV (80.0-100.0) fL MCH (25.0-35.0) pg MCHC (31.0-37.0) g/dL RDW (11.5-15.5) % Plt Count (150-450) k/uL MPV Neutrophils % % Lymphocytes % % Monocytes % % Eosinophils % % Basophils % % Neutrophils # (1.3-7.7) k/uL Lymphocytes # (1.0-4.8) k/uL Monocytes # (0-1.0) k/uL Eosinophils # (0-0.7) k/uL Basophils # (0-0.2) k/uL Hypochromasia Anisocytosis PT (9.0-12.0) sec INR (<1.2) APTT (22.0-30.0) sec Sodium (137-145) mmol/L Potassium (3.5-5.1) mmol/L Chloride (98-107) mmol/L Carbon Dioxide (22-30) mmol/L Anion Gap mmol/L BUN (7-17) mg/dL Creatinine (0.52-1.04) mg/dL Est GFR (CKD-EPI)AfAm (>60 ml/min/1.73 sqM) Est GFR (CKD-EPI)NonAf (>60 ml/min/1.73 sqM) Glucose (74-99) mg/dL Calcium (8.4-10.2) mg/dL Total Bilirubin (0.2-1.3) mg/dL AST (14-36) U/L ALT (4-34) U/L Alkaline Phosphatase (38-126) U/L Troponin I <0.012 (0.000-0.034) ng/mL Total Protein (6.3-8.2) g/dL Albumin (3.5-5.0) g/dL Disposition Clinical Impression: Near syncope, Anemia Disposition: ADMITTED IP TO THIS [facility] Condition: Fair Referrals: Mazin Kumar MD [Primary Care Provider] - 1-2 days Decision Date: 12/11/21 Decision Time: 16:01
[2021-12-11] MEDS ORDERED: ONDANSETRON 4 MG/2 ML VIAL IVP STA (14:35)
[2021-12-11 14:46] LABS: Anisocytosis Slight; Basophils % (A) 0 %; Eosinophils # (A) 0.1 k/uL (0-0.7); Eosinophils % (A) 1 %; HCT 27.4 % (34.0-46.0); HGB 9.1 gm/dL (11.4-16.0); Hypochromasia Slight; Lymphocytes # (A) 0.9 k/uL (1.0-4.8); Lymphocytes % (A) 9 %; MCH 31.3 pg (25.0-35.0); MCHC 33.3 g/dL (31.0-37.0); MCV 94.1 fL (80.0-100.0); Mean Platelet Volume 8.4; Monocytes # (A) 0.4 k/uL (0-1.0); Monocytes % (A) 4 %; Neutrophils # (A) 7.8 k/uL (1.3-7.7); Neutrophils % (A) 84 %; Platelet Count 207 k/uL (150-450); RBC 2.91 m/uL (3.80-5.40); RDW 16.6 % (11.5-15.5); WBC 9.3 k/uL (3.8-10.6)
[2021-12-11 14:59] LABS: INR 1.2 (<1.2); Partial Thromboplastin Time 24.8 sec (22.0-30.0)
[2021-12-11 15:04] LABS: Calcium 8.5 mg/dL (8.4-10.2); Potassium 3.9 mmol/L (3.5-5.1); Total Bilirubin 1.3 mg/dL (0.2-1.3); Total Protein 6.6 g/dL (6.3-8.2)
--- NOTE | 2021-12-11 15:05 | XR ---
EXAMINATION TYPE: XR chest 2V DATE OF EXAM: 12/11/2021 COMPARISON: 12/06/2021 HISTORY: Syncope TECHNIQUE: 2 views FINDINGS: Heart and mediastinum are normal. Lungs are clear. Diaphragm is normal. Bony thorax is inta ct. IMPRESSION: No active cardiopulmonary disease. No adverse change.
[2021-12-11] MEDS ORDERED: PANTOPRAZOLE 40 MG/10 ML VIAL IVP STA (16:16)
[2021-12-11] MEDS ORDERED: NALOXONE 0.4 MG/ML 1 ML VIAL IV PRN (16:48)
[2021-12-11] MEDS ORDERED: MELOXICAM 7.5 MG TAB PO SCH (21:00)
[2021-12-11] MEDS ORDERED: NON FORMULARY DRUG (Vit C/E/Zn/Coppr/Lutein/Zeaxan [Preservision Areds 2 Softgel] 1 EACH C PO SCH (21:00)
[2021-12-11] MEDS: ATORVASTATIN 20 MG TAB PO SCH (23:15)
[2021-12-11] MEDS: MONTELUKAST 10 MG TAB PO SCH (23:16)
[2021-12-11] MEDS: LORATADINE 10 MG TAB PO SCH (23:16)
[2021-12-11] MEDS: NON FORMULARY DRUG (Acetaminophen/Diphenhydramine [Tylenol Pm 500-25mg] 1 EACH Tablet) PO SCH (23:17)
--- NOTE | 2021-12-12 01:26 | P.HPIM ---
History of Present Illness H&P Date: 12/12/21 Chief Complaint: Near Syncope Patient is a 81-year-old female with a known history of coronary artery disease with stent placement, paroxysmal atrial fibrillation on anticoagulation with Eliquis, hypertension, anxiety was brought to ER due to presyncopal episode at work. Patient is working at [employer] where she felt felt lightheaded and dizzy, felt like passing out. Patient sat down for a few minutes and symptoms resolved. Denied any complaints of chest pain or shortness of breath. Patient does have nausea. No diaphoresis. No headache. No cough or sputum production. Patient had a fall yesterday and had alarge bruise on her left hip area.patient was trying to get out of the vehicle and slipped and fell. Patient does have history of coronary disease and underwent cardiac catheterization in October 2021. Patient is currently on dual antiplatelet agents and also on anticoagulationfor paroxysmal atrial fibrillation.patient was recently started on amiodarone 200 mg twice a day.neck and chest x-ray showed no active cardiac pulmonary disease. Patient says that she noticed dark brown stools for the past 2 days. Laboratory data initial WBC 9.3 hemoglobin 9.1 and platelets 16.6 Neutrophils 7.8 INR 1.2 Sodium 1-47 potassium3.9 chloride 101 bicarb is24, BUN 48 and creatinine 1.26 troponin 1 negative.FOBT positive EKG/tachycardia with heart rate 105 Review of Systems Constitutional: Patient denies any fever or chills . Generalized weakness. Abdomen: Patient denied any nausea or vomiting or abd. pain Cardiovascular: Patient denies any chest pain or short of breath no palpitations. Respiratory: patient denied any cough is from production. No shortness of breath Neurologic: Patient denied any numbness or tingling headache. Musculoskeletal: Patient denies any complaints of joint swelling or deformity. Skin: Negative Psychiatric: Negative Endocrine: No heat or cold intolerance. No recent weight gain. Genitourinary: No dysuria or hematuria. All other 14 point ROS negative except the above Past Medical History Past Medical History: Atrial Fibrillation, Hypertension Additional Past Medical History / Comment(s): OSTEOPOROSIS, "heart doesnt beat right" History of Any Multi-Drug Resistant Organisms: None Reported Past Surgical History: Adenoidectomy, Appendectomy, Back Surgery, Cholecystectomy, Heart Catheterization, Hysterectomy, Tonsillectomy Past Anesthesia/Blood Transfusion Reactions: No Reported Reaction Past Psychological History: Anxiety Smoking Status: Never smoker Past Alcohol Use History: None Reported Past Drug Use History: None Reported - Past Family History Father Family Medical History: Coronary Artery Disease (CAD) Additional Family Medical History / Comment(s): Alcohol Abuse. Mother Family Medical History: Coronary Artery Disease (CAD) Brother(s) Family Medical History: Coronary Artery Disease (CAD), Dementia Additional Family Medical History / Comment(s): ONE BROTHER - SELF CATH Sister(s) Family Medical History: Dementia, Diabetes Mellitus Additional Family Medical History / Comment(s): ONE SISTER - PARANOID SCHIZOPHRENIA. Daughter(s) Family Medical History: Deep Vein Thrombosis (DVT), Pulmonary Embolus Medications and Allergies Home Medications Medication Instructions Recorded Confirmed Type Meloxicam 7.5 mg PO BID 02/04/16 12/11/21 History Calcium Carbonate/Vitamin D3 1 tab PO DAILY 08/11/16 12/11/21 History [Calcium 600-Vit D3 400 Caplet] Cetirizine HCl [Zyrtec] 10 mg PO HS 08/11/16 12/11/21 History Montelukast [Singulair] 10 mg PO HS 08/11/16 12/11/21 History Simvastatin [Zocor] 40 mg PO HS 08/11/16 12/11/21 History Acetaminophen/Diphenhydramine 1 tab PO HS 06/09/17 12/11/21 History [Tylenol PM 500-25mg] Ascorbic Acid [Vitamin C] 1,000 mg PO DAILY 06/09/17 12/11/21 History Multivit with Calcium,Iron,Min 1 tab PO DAILY 06/09/17 12/11/21 History [Women's Multivitamin] Cholecalciferol [Vitamin D3 (25 50 mcg PO DAILY 05/04/21 12/11/21 History Mcg = 1000 Iu)] Escitalopram [Lexapro] 10 mg PO DAILY 05/04/21 12/11/21 History Mirabegron [Myrbetriq] 25 mg PO DAILY 05/04/21 12/11/21 History Vit C/E/Zn/Coppr/Lutein/Zeaxan 1 cap PO BID 05/04/21 12/11/21 History [Preservision Areds 2 Softgel] Apixaban [Eliquis] 5 mg PO BID 11/18/21 12/11/21 History Furosemide [Lasix] 20 mg PO DAILY 11/18/21 12/11/21 History Metoprolol Succinate (ER) [Toprol 25 mg PO DAILY 11/18/21 12/11/21 History Xl] Amiodarone [Cordarone] See Taper PO DIRECTED 12/11/21 12/11/21 History Allergies Allergy/AdvReac Type Severity Reaction Status Date / Time cephalexin monohydrate Allergy Rash/Hives Verified 12/11/21 14:48 [From Keflex] Physical Exam Vitals: Vital Signs Temp Pulse Pulse Resp BP BP Pulse Ox 12/11/21 21:00 98.1 F 98 16 106/72 100 12/11/21 20:00 96 18 116/87 99 12/11/21 13:49 98.6 F 103 H 18 112/63 99 Intake and Output 12/11/21 12/11/21 12/12/21 14:59 22:59 06:59 Other: Weight 58.967 kg 58.967 kg PHYSICAL EXAMINATION: Patient is lying in the bed comfortably, no acute distress, awake alert and oriented.. HEENT: Normocephalic. Neck is supple. Pupils reactive. Nostrils clear. Oral cavity is moist. Neck reveals no JVD, carotid bruits, or thyromegaly. CHEST EXAMINATION: Trachea is central. Symmetrical expansion. Lung saul clear to auscultation and percussion. CARDIAC: Normal S1, S2 with no gallops. No murmurs ABDOMEN: Soft. Bowel sounds present. Nontender. No organomegaly. No abdominal bruits. Extremities: reveal no edema. No clubbing or cyanosis Neurologically awake, alert, oriented x3 with well-coordinated movements. No focal deficits noted Skin: No rash or skin lesions. Psychiatric: Coperative. Nonsuicidal, anxious. Musculoskeletal: No joint swelling or deformity. Normal range of motion. Results CBC & Chem 7: 12/12/21 16:48 12/12/21 07:16 Labs: Abnormal Lab Results - Last 24 Hours (Table) 12/11/21 12/11/21 12/11/21 Range/Units 13:55 13:55 13:55 RBC 2.91 L (3.80-5.40) m/uL Hgb 9.1 L (11.4-16.0) gm/dL Hct 27.4 L (34.0-46.0) % RDW 16.6 H (11.5-15.5) % Neutrophils # 7.8 H (1.3-7.7) k/uL Lymphocytes # 0.9 L (1.0-4.8) k/uL PT 13.0 H (9.0-12.0) sec INR 1.2 H (<1.2) Chloride 111 H (98-107) mmol/L BUN 48 H (7-17) mg/dL Creatinine 1.26 H (0.52-1.04) mg/dL Glucose 102 H (74-99) mg/dL AST 38 H (14-36) U/L Stool Occult Blood (Negative) 12/11/21 Range/Units 17:07 RBC (3.80-5.40) m/uL Hgb (11.4-16.0) gm/dL Hct (34.0-46.0) % RDW (11.5-15.5) % Neutrophils # (1.3-7.7) k/uL Lymphocytes # (1.0-4.8) k/uL PT (9.0-12.0) sec INR (<1.2) Chloride (98-107) mmol/L BUN (7-17) mg/dL Creatinine (0.52-1.04) mg/dL Glucose (74-99) mg/dL AST (14-36) U/L Stool Occult Blood Positive H (Negative) Thrombosis Risk Factor Assmnt - DVT/VTE Prophylaxis DVT/VTE Prophylaxis: Mechanical Prophylaxis ordered - Choose All That Apply Any of the Below Risk Factors Present?: Yes Each Factor Represents 1 point: Obesity (BMI >25) Other Risk Factors: Yes Each Risk Factor Represents 3 Points: Age 75 years or older Other congenital or acquired thrombophilia - If yes, enter type in comment: No Thrombosis Risk Factor Assessment Total Risk Factor Score: 4 Thrombosis Risk Factor Assessment Level: Moderate Risk Assessment and Plan Assessment: Acute presyncopal episode. Differential includes atrial flutter/underlying GI bleed Acute blood loss anemia. Hemoglobin9.1. Was 12.1. Recent admission Coronary artery disease with history of stent placement in October 2021 Persistent atrial fibrillation on anticoagulation with Eliquis Hypertension Anxiety Large bruise over the left hip due to fall yesterday while getting out of the vehicle. DVT prophylaxis with SCDs Plan: Patient will be continued on telemetry monitoring. Continue with metoprolol and hold anticoagulation. Patient will be started on Protonix 40 mg twice daily and monitor hemoglobin closely. Patient may need GI/Gen. surgery evaluation. Cardiology consult for persistent atrial fibrillation. Continue to follow closely. Prognosis is guarded. Time with Patient: Greater than 30
[2021-12-12 03:37] LABS: Appearance,Urine Clear (Clear); Bilirubin,Urine Negative (Negative); Blood,Urine Negative (Negative); Color,Urine Yellow; Glucose,Urine (UA) Negative (Negative); Hyaline Casts,Urine 1 /lpf (0-2); Ketones,Urine Negative (Negative); Leukocyte Esterase,Urine Moderate (Negative); Mucus,Urine Rare /hpf; Nitrite,Urine Negative (Negative); PH, Urine 5.5 (5.0-8.0); Protein,Urine Trace (Negative); RBC,Urine 1 /hpf (0-5); Specific Gravity,Urine 1.021 (1.001-1.035); Squamous Epithelial Cell,Urine <1 /hpf (0-4); WBC,Urine 17 /hpf (0-5)
[2021-12-12] MEDS: PANTOPRAZOLE 40 MG/10 ML VIAL IVP SCH ×2 (08:36→21:27)
[2021-12-12] MEDS: METOPROLOL SUCCINATE (ER) 25 MG TAB.ER.24H PO SCH (08:37)
[2021-12-12] MEDS: AMIODARONE 200 MG TAB PO SCH ×2 (08:37→21:27)
[2021-12-12] MEDS: NON FORMULARY DRUG (Mirabegron [Myrbetriq] 25 MG Tablet) PO SCH (08:38)
[2021-12-12] MEDS ORDERED: ASCORBIC ACID 500 MG TAB PO SCH (09:00)
[2021-12-12] MEDS ORDERED: FUROSEMIDE 20 MG TAB PO SCH (09:00)
[2021-12-12] MEDS: ESCITALOPRAM 10 MG TAB PO SCH (10:24)
[2021-12-12] MEDS: VIT A,C & E-LUTEIN-MINERALS 1 EACH TAB PO SCH ×2 (10:24→21:27)
[2021-12-12 11:53] LABS: Basophils # (A) 0.05 X 10*3/uL (0.00-0.10); Basophils % (A) 0.8 %; Eosinophils # (A) 0.14 X 10*3/uL (0.04-0.35); Eosinophils % (A) 2.1 %; HCT 25.5 % (37.2-46.3); HGB 7.6 g/dL (12.0-15.0); Immature Grans, Automated 0.6 %; Lymphocytes # (A) 1.64 X 10*3/uL (0.90-5.00); Lymphocytes % (A) 25.2 %; MCH 28.8 pg (27.0-32.0); MCHC 29.8 g/dL (32.0-37.0); MCV 96.6 fL (80.0-97.0); Mean Platelet Volume 12.2 fL (9.5-12.2); Monocytes # (A) 0.56 X 10*3/uL (0.20-1.00); Monocytes % (A) 8.6 %; NRBC Per 100 WBC 0 /100 WBCS (0.0-0.0); Neutrophils # (A) 4.09 X 10*3/uL (1.80-7.70); Neutrophils % (A) 62.7 %; Platelet Count 209 X 10*3/uL (140-440); RBC 2.64 X 10*6/uL (4.10-5.20); RDW 17.5 % (11.5-14.5); WBC 6.52 X 10*3/uL (4.50-10.00)
[2021-12-12 12:02] LABS: African American GFR (CKD) 49.1 (60.0-200.0); Anion Gap 11.7 mmol/L (10.00-18.00); BUN/Creat Ratio 32.17 Ratio (12.00-20.00); Blood Urea Nitrogen 38.6 mg/dL (9.0-27.0); Calcium 8.6 mg/dL (8.7-10.3); Carbon Dioxide 24.3 mmol/L (20.0-27.5); Non-African American GFR(CKD) 42.3 (60.0-200.0); Potassium 4.2 mmol/L (3.5-5.5)
--- NOTE | 2021-12-12 14:22 | CONS ---
CONSULTATION Anita is an 81-year-old lady with history of typical atrial flutter who is to undergo cardioversion by Dr. Kellogg next Monday. She comes in having had an episode of sustained palpitations. 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 EKG showed atrial flutter with around 105 beats per minute with nonspecific ST-T wave changes. Subsequently the patient has settled down, and at the time of my evaluation this morning she is symptom-free. She is on Cordarone and Toprol-XL along with Eliquis 5 b.i.d. Patient had a hemoglobin of 9.1 on presentation. It is 7.6 this morning. PAST MEDICAL HISTORY: Significant for atrial flutter, dyslipidemia and anemia. MEDICATIONS: Medications include Zocor, Singulair, Toprol, Lasix, Lexapro, Zyrtec, Eliquis and Cordarone. ALLERGIES: KEFLEX. FAMILY HISTORY: Negative for premature coronary artery disease. SOCIAL HISTORY: Negative for current smoking, EtOH abuse or drug abuse. REVIEW OF SYSTEMS: HEENT is significant for dizziness and near-syncope. CARDIAC: As described above. RESPIRATORY: Negative. GI: Negative. GENITOURINARY: Negative. ALLERGY/IMMUNOLOGY: Negative. SKIN: Negative. MUSCULOSKELETAL: Significant for arthritis. PSYCHOSOCIAL: Negative. DERMATOLOGY: Negative. CONSTITUTIONAL: Negative. ONCOLOGICAL: Negative. PHYSICAL EXAMINATION: Comfortable at rest. Vital signs are stable. There is no jugular venous distention. Chest exam reveals good air entry bilaterally. Heart exam reveals first and second heart sounds, irregular rhythm and a systolic murmur at the apex. Abdomen is soft. Examination of extremities did not reveal any edema. Peripheral pulses are felt. LABS: Labs show that the hemoglobin was 7.6 this morning. It was around 12 and 13 last month. BUN is 48, creatinine is 1.2. EKG is abnormal as described above. Patient had a cardiac catheterization 3 weeks ago that revealed normal coronary arteries. She had an echocardiogram in September that showed moderate LV systolic dysfunction. ASSESSMENT: 1. Dizziness, near-syncope and palpitations, probably secondary to anemia. Her hemoglobin has dropped by about 5 to 6 grams. 2. Atrial flutter with controlled ventricular rate. 3. Cardiomyopathy. PLAN: Continue the Cordarone, Lipitor, Toprol. If she was going to have a cardioversion next Monday, we need to hold it for now. I am going to let the primary investigate her for the anemia that she has. MMODL / IJN: [id number] /
[2021-12-12 17:51] LABS: Anisocytosis Slight; Basophils % (A) 1 %; Eosinophils # (A) 0.2 k/uL (0-0.7); Eosinophils % (A) 3 %; HCT 25.8 % (34.0-46.0); HGB 8.2 gm/dL (11.4-16.0); Hypochromasia Slight; Lymphocytes # (A) 1.8 k/uL (1.0-4.8); Lymphocytes % (A) 24 %; MCH 30.7 pg (25.0-35.0); MCHC 31.9 g/dL (31.0-37.0); MCV 96.1 fL (80.0-100.0); Macrocytosis Slight; Mean Platelet Volume 8.7; Monocytes # (A) 0.5 k/uL (0-1.0); Monocytes % (A) 6 %; Neutrophils # (A) 4.9 k/uL (1.3-7.7); Neutrophils % (A) 64 %; Platelet Count 220 k/uL (150-450); RBC 2.68 m/uL (3.80-5.40); RDW 17.4 % (11.5-15.5); WBC 7.5 k/uL (3.8-10.6)
[2021-12-12] MEDS: MONTELUKAST 10 MG TAB PO SCH (21:27)
[2021-12-12] MEDS: LORATADINE 10 MG TAB PO SCH (21:27)
[2021-12-12] MEDS: ATORVASTATIN 20 MG TAB PO SCH (21:27)
[2021-12-12] MEDS: NON FORMULARY DRUG (Acetaminophen/Diphenhydramine [Tylenol Pm 500-25mg] 1 EACH Tablet) PO SCH (21:31)
--- NOTE | 2021-12-13 02:26 | P.PN ---
Subjective Progress Note Date: 12/12/21 Patient is a 81-year-old female with a known history of coronary artery disease with stent placement, paroxysmal atrial fibrillation on anticoagulation with Eliquis, hypertension, anxiety was brought to ER due to presyncopal episode at work. Patient is working at [employer] where she felt felt lightheaded and dizzy, felt like passing out. Patient sat down for a few minutes and symptoms resolved. Denied any complaints of chest pain or shortness of breath. Patient does have nausea. No diaphoresis. No headache. No cough or sputum production. Patient had a fall yesterday and had alarge bruise on her left hip area.patient was trying to get out of the vehicle and slipped and fell. Patient does have history of coronary disease and underwent cardiac catheterization in October 2021. Patient is currently on dual antiplatelet agents and also on anticoagulationfor paroxysmal atrial fibrillation.patient was recently started on amiodarone 200 mg twice a day.neck and chest x-ray showed no active cardiac pulmonary disease. Patient says that she noticed dark brown stools for the past 2 days. Laboratory data initial WBC 9.3 hemoglobin 9.1 and platelets 16.6 Neutrophils 7.8 INR 1.2 Sodium 1-47 potassium3.9 chloride 101 bicarb is24, BUN 48 and creatinine 1.26 troponin 1 negative.FOBT positive EKG/tachycardia with heart rate 105 12/12/2021 Patient is resting in bed. Awake alert [place] x3. Denies any dark-colored stools. Patient is being current on IV Protonix. No complaints of abdominal pain. No nausea. No headache or dizziness or lightheadedness. Laboratory test showed hemoglobin 7.6 today. Sodium 147 potassium 4.2 chloride 111 bicarb is 24.3 and BUN 38.6 and creatinine 1.2. Calcium 8.6. proBNP 3440. Repeat hemoglobin level is 8.2 today. Anticoagulation is on hold. General surgery was consulted for possible EGD and evaluate for GI bleed. Current medications reviewed. Objective - Vital Signs Vital signs: Vital Signs Temp 97.8 F 12/12/21 21:00 Pulse 102 H 12/12/21 21:00 Resp 16 12/12/21 21:00 BP 107/64 12/12/21 21:00 Pulse Ox 98 12/12/21 21:00 FiO2 Intake & Output 12/12/21 12/12/2122 06:59 18:59 06:59 Weight 58.967 kg Other: Voiding Method Toilet Toilet # Voids 1 4 # Bowel Movements 1 - Exam PHYSICAL EXAMINATION: Patient is lying in the bed comfortably, no acute distress, awake alert and oriented.. HEENT: Normocephalic. Neck is supple. Pupils reactive. Nostrils clear. Oral cavity is moist. Neck reveals no JVD, carotid bruits, or thyromegaly. CHEST EXAMINATION: Trachea is central. Symmetrical expansion. Lung saul clear to auscultation and percussion. CARDIAC: Normal S1, S2 with no gallops. No murmurs ABDOMEN: Soft. Bowel sounds present. Nontender. No organomegaly. No abdominal bruits. Extremities: reveal no edema. No clubbing or cyanosis Neurologically awake, alert, oriented x3 with well-coordinated movements. No focal deficits noted Skin: No rash or skin lesions. Psychiatric: Coperative. Nonsuicidal, anxious. Musculoskeletal: No joint swelling or deformity. Normal range of motion. - Labs CBC & Chem 7: 12/12/21 16:48 12/12/21 07:16 Labs: Abnormal Lab Results - Last 24 Hours (Table) 12/12/21 12/12/21 12/12/21 Range/Units 02:47 07:16 07:16 RBC 2.64 L (4.10-5.20) X 10*6/uL Hgb 7.6 L (12.0-15.0) g/dL Hct 25.5 L (37.2-46.3) % MCHC 29.8 L (32.0-37.0) g/dL RDW 17.5 H (11.5-14.5) % Sodium 147 H (135-145) mmol/L Chloride 111 H (96-109) mmol/L BUN 38.6 H (9.0-27.0) mg/dL Est GFR (CKD-EPI)AfAm 49.1 L (60.0-200.0) Est GFR (CKD-EPI)NonAf 42.3 L (60.0-200.0) BUN/Creatinine Ratio 32.17 H (12.00-20.00) Ratio Calcium 8.6 L (8.7-10.3) mg/dL Urine Protein Trace H (Negative) Ur Leukocyte Esterase Moderate H (Negative) Urine WBC 17 H (0-5) /hpf Urine Mucus Rare H (None) /hpf 12/12/21 Range/Units 16:48 RBC 2.68 L (4.10-5.20) X 10*6/uL Hgb 8.2 L (12.0-15.0) g/dL Hct 25.8 L (37.2-46.3) % MCHC (32.0-37.0) g/dL RDW 17.4 H (11.5-14.5) % Sodium (135-145) mmol/L Chloride (96-109) mmol/L BUN (9.0-27.0) mg/dL Est GFR (CKD-EPI)AfAm (60.0-200.0) Est GFR (CKD-EPI)NonAf (60.0-200.0) BUN/Creatinine Ratio (12.00-20.00) Ratio Calcium (8.7-10.3) mg/dL Urine Protein (Negative) Ur Leukocyte Esterase (Negative) Urine WBC (0-5) /hpf Urine Mucus (None) /hpf Assessment and Plan Assessment: Acute presyncopal episode / symptomatic anermia. likely due to GI bleed Acute blood loss anemia. Hemoglobin 9.1 on admission. Was 12.1. Recent admission Hypernatremia Coronary artery disease with history of stent placement in October 2021 Persistent atrial fibrillation on anticoagulation with Eliquis Hypertension Anxiety Large bruise over the left hip due to fall yesterday while getting out of the vehicle. DVT prophylaxis with SCDs Plan: Patient will be continued on telemetry monitoring. IVF with half normal saline. Continue with metoprolol and hold anticoagulation. Patient will be started on Protonix 40 mg twice daily and monitor hemoglobin closely. Patient will need GI/Gen. surgery evaluation. monitor H&H closely Cardiology consult for persistent atrial fibrillation. Continue to follow closely. Prognosis is guarded. Time with Patient: Greater than 30
[2021-12-13] MEDS: SODIUM CHLORIDE 0.45% 1,000 ML IV SCH ×3 (06:29→20:29)
[2021-12-13 08:43] LABS: Basophils # (A) 0.03 X 10*3/uL (0.00-0.10); Basophils % (A) 0.4 %; Eosinophils # (A) 0.23 X 10*3/uL (0.04-0.35); Eosinophils % (A) 2.9 %; HCT 27.5 % (37.2-46.3); HGB 8.2 g/dL (12.0-15.0); Immature Grans, Automated 0.5 %; Lymphocytes # (A) 1.94 X 10*3/uL (0.90-5.00); Lymphocytes % (A) 24.1 %; MCH 29.1 pg (27.0-32.0); MCHC 29.8 g/dL (32.0-37.0); MCV 97.5 fL (80.0-97.0); Mean Platelet Volume 11.7 fL (9.5-12.2); Monocytes # (A) 0.62 X 10*3/uL (0.20-1.00); Monocytes % (A) 7.7 %; NRBC Per 100 WBC 0.2 /100 WBCS (0.0-0.0); Neutrophils # (A) 5.18 X 10*3/uL (1.80-7.70); Neutrophils % (A) 64.4 %; Platelet Count 233 X 10*3/uL (140-440); RBC 2.82 X 10*6/uL (4.10-5.20); RDW 18.2 % (11.5-14.5); WBC 8.04 X 10*3/uL (4.50-10.00)
[2021-12-13 09:01] LABS: African American GFR (CKD) 49.1 (60.0-200.0); BUN/Creat Ratio 35.25 Ratio (12.00-20.00); Blood Urea Nitrogen 42.3 mg/dL (9.0-27.0); Calcium 8.9 mg/dL (8.7-10.3); Non-African American GFR(CKD) 42.3 (60.0-200.0); Potassium 4.8 mmol/L (3.5-5.5)
[2021-12-13] MEDS: METOPROLOL SUCCINATE (ER) 25 MG TAB.ER.24H PO SCH (09:05)
[2021-12-13] MEDS: AMIODARONE 200 MG TAB PO SCH ×2 (09:05→20:29)
[2021-12-13] MEDS: PANTOPRAZOLE 40 MG/10 ML VIAL IVP SCH ×2 (09:05→20:29)
[2021-12-13] MEDS: ESCITALOPRAM 10 MG TAB PO SCH (09:07)
[2021-12-13] MEDS: NON FORMULARY DRUG (Mirabegron [Myrbetriq] 25 MG Tablet) PO SCH (09:08)
--- NOTE | 2021-12-13 11:41 | P.GSCN ---
History of Present Illness Consult date: 12/13/21 History of present illness: CHIEF COMPLAINT: Dizziness HISTORY OF PRESENT ILLNESS: This is a 81-year-old female who presented to the hospital with complaints of dizziness and near syncopal episode while she is working at [employer]. Patient did fall a couple days ago and has a larger bruise on the left hip and lateral aspect of left thigh. It is tender with palpation. Apparently patient was trying to get out of the vehicle and slipped and fell. She is on anticoagulation in the form of Eliquis for her atrial fibrillation. Patient reports over the last few days she has been on Mobic. Her last dose of Eliquis and Mobic is 12/11/2021. Patient has been anemic hemoglobin 9.1 on admission did drop to 7.6 and is currently at 8.2. Her last hemoglobin in October was 12.4. Patient denies any blood in her stools. But stool for occult blood was positive. She denies any abdominal pain. She does have a prior history of hemorrhoids. Her last colonoscopy was 2 years ago. Patient denies any nausea or vomiting. Patient was initially scheduled for a cardioversion next Monday with cardiology service. They've currently placed on hold. They felt that her dizziness and near syncope was possibly secondary to anemia. PAST MEDICAL HISTORY: afib, HTN, osteoporosis PAST SURGICAL HISTORY: Adenoidectomy, Appendectomy, Back Surgery, Cholecystectomy, Heart Catheteri zation, Hysterectomy, Tonsillectomy MEDICATIONS: See list. ALLERGIES: See list. SOCIAL HISTORY: No illicit drug use. REVIEW OF SYSTEMS: CONSTITUTIONAL: Denies fever or chills. HEENT: Denies blurred vision, vision changes, or eye pain. Denies hemoptysis CARDIOVASCULAR: Denies chest pain or pressure. RESPIRATORY: No shortness of breath. GASTROINTESTINAL: See HPI for pertinent findings HEMATOLOGIC: Denies bleeding disorders. GENITOURINARY: Denies any blood in urine or increased urinary frequency. SKIN: Denies pruitis. Denies rash. PHYSICAL EXAM: VITAL SIGNS: Reviewed GENERAL: Well-developed in no acute distress. HEENT: No sclera icterus. Extraocular movements grossly intact. Moist buccal mucosa. Head is atraumatic, normocephalic. No nasal drainage. ABDOMEN: Soft. Nondistended. Nontender NEUROLOGIC: Alert and oriented. Cranial nerves II through XII grossly intact. Skin: Large left hip and thigh hematoma LABORATORY DATA: Hemoglobin 9.1 on admission dropped to 7.6 and is currently at 8.2 Platelets 233 WBC is 8.04 Sodium is 146 potassium 4.8 creatinine 1.2 IMAGING: ASSESSMENT: 1. Anemia 2. Large left hip and thigh hematoma 3. Dizziness and near syncope 4. On blood thinner and NSAIDs at home PLAN: -Patient scheduled for EGD and colonoscopy on , 12/16/[address] garay -Okay for regular diet today and start full liquid diet tomorrow -Continue to hold Eliquis and Mobic -Continue to monitor for signs and symptoms of bleeding -Continue to monitor hemoglobin Physician Engine Dynamometer Tester note has been reviewed by physician. Signing provider agrees with the documented findings, assessment, and plan of care. Past Medical History Past Medical History: Atrial Fibrillation, Hypertension Additional Past Medical History / Comment(s): OSTEOPOROSIS, "heart doesnt beat right" History of Any Multi-Drug Resistant Organisms: None Reported Past Surgical History: Adenoidectomy, Appendectomy, Back Surgery, Cholecystectomy, Heart Catheterization, Hysterectomy, Tonsillectomy Additional Past Surgical History / Comment(s): heart cath 10/2021, scheduled to have a cardiac ablation this upcoming monday12/17/21 Past Anesthesia/Blood Transfusion Reactions: No Reported Reaction Past Psychological History: Anxiety Smoking Status: Never smoker Past Alcohol Use History: None Reported Past Drug Use History: None Reported - Past Family History Father Family Medical History: Coronary Artery Disease (CAD) Additional Family Medical History / Comment(s): Alcohol Abuse. Mother Family Medical History: Coronary Artery Disease (CAD) Brother(s) Family Medical History: Coronary Artery Disease (CAD), Dementia Additional Family Medical History / Comment(s): ONE BROTHER - SELF CATH Sister(s) Family Medical History: Dementia, Diabetes Mellitus Additional Family Medical History / Comment(s): ONE SISTER - PARANOID SCHIZOPHRENIA. Daughter(s) Family Medical History: Deep Vein Thrombosis (DVT), Pulmonary Embolus Medications and Allergies Home Medications Medication Instructions Recorded Confirmed Type Meloxicam 7.5 mg PO BID 02/04/16 12/11/21 History Calcium Carbonate/Vitamin D3 1 tab PO DAILY 08/11/16 12/11/21 History [Calcium 600-Vit D3 400 Caplet] Cetirizine HCl [Zyrtec] 10 mg PO HS 08/11/16 12/11/21 History Montelukast [Singulair] 10 mg PO HS 08/11/16 12/11/21 History Simvastatin [Zocor] 40 mg PO HS 08/11/16 12/11/21 History Acetaminophen/Diphenhydramine 1 tab PO HS 06/09/17 12/11/21 History [Tylenol PM 500-25mg] Ascorbic Acid [Vitamin C] 1,000 mg PO DAILY 06/09/17 12/11/21 History Multivit with Calcium,Iron,Min 1 tab PO DAILY 06/09/17 12/11/21 History [Women's Multivitamin] Cholecalciferol [Vitamin D3 (25 50 mcg PO DAILY 05/04/21 12/11/21 History Mcg = 1000 Iu)] Escitalopram [Lexapro] 10 mg PO DAILY 05/04/21 12/11/21 History Mirabegron [Myrbetriq] 25 mg PO DAILY 05/04/21 12/11/21 History Vit C/E/Zn/Coppr/Lutein/Zeaxan 1 cap PO BID 05/04/21 12/11/21 History [Preservision Areds 2 Softgel] Apixaban [Eliquis] 5 mg PO BID 11/18/21 12/11/21 History Furosemide [Lasix] 20 mg PO DAILY 11/18/21 12/11/21 History Metoprolol Succinate (ER) [Toprol 25 mg PO DAILY 11/18/21 12/11/21 History Xl] Amiodarone [Cordarone] See Taper PO DIRECTED 12/11/21 12/11/21 History Allergies Allergy/AdvReac Type Severity Reaction Status Date / Time cephalexin monohydrate Allergy Rash/Hives Verified 12/11/21 14:48 [From Keflex] Surgical - Exam Vital Signs Temp Pulse Resp BP Pulse Ox 98.6 F 103 H 18 112/63 99 12/11/21 13:49 12/11/21 13:49 12/11/21 13:49 12/11/21 13:49 12/11/21 13:49 Results - Labs 12/13/21 06:21 12/13/21 06:21 Abnormal Lab Results - Last 24 Hours (Table) 12/12/21 12/12/21 12/12/21 Range/Units 07:16 07:16 16:48 RBC 2.64 L 2.68 L (4.10-5.20) X 10*6/uL Hgb 7.6 L 8.2 L (12.0-15.0) g/dL Hct 25.5 L 25.8 L (37.2-46.3) % MCV (80.0-97.0) fL MCHC 29.8 L (32.0-37.0) g/dL RDW 17.5 H 17.4 H (11.5-14.5) % Absolute Nucleated RBC (0.00-0.00) X 10*3/uL NRBC/100 WBC Diff (0.0-0.0) /100 WBCS Sodium 147 H (135-145) mmol/L Chloride 111 H (96-109) mmol/L Anion Gap (10.00-18.00) mmol/L BUN 38.6 H (9.0-27.0) mg/dL Est GFR (CKD-EPI)AfAm 49.1 L (60.0-200.0) Est GFR (CKD-EPI)NonAf 42.3 L (60.0-200.0) BUN/Creatinine Ratio 32.17 H (12.00-20.00) Ratio Calcium 8.6 L (8.7-10.3) mg/dL 12/13/21 12/13/21 Range/Units 06:21 06:21 RBC 2.82 L (4.10-5.20) X 10*6/uL Hgb 8.2 L (12.0-15.0) g/dL Hct 27.5 L (37.2-46.3) % MCV 97.5 H (80.0-97.0) fL MCHC 29.8 L (32.0-37.0) g/dL RDW 18.2 H (11.5-14.5) % Absolute Nucleated RBC 0.02 H (0.00-0.00) X 10*3/uL NRBC/100 WBC Diff 0.2 H (0.0-0.0) /100 WBCS Sodium 146 H (135-145) mmol/L Chloride 113 H (96-109) mmol/L Anion Gap 7.00 L (10.00-18.00) mmol/L BUN 42.3 H (9.0-27.0) mg/dL Est GFR (CKD-EPI)AfAm 49.1 L (60.0-200.0) Est GFR (CKD-EPI)NonAf 42.3 L (60.0-200.0) BUN/Creatinine Ratio 35.25 H (12.00-20.00) Ratio Calcium (8.7-10.3) mg/dL Diabetes panel 12/12/21 12/13/21 Range/Units 07:16 06:21 Sodium 147 H 146 H (135-145) mmol/L Potassium 4.2 4.8 (3.5-5.5) mmol/L Chloride 111 H 113 H (96-109) mmol/L Carbon Dioxide 24.3 26.0 (20.0-27.5) mmol/L BUN 38.6 H 42.3 H (9.0-27.0) mg/dL Creatinine 1.2 1.2 (0.6-1.5) mg/dL Glucose 87 92 (70-110) mg/dL Calcium 8.6 L 8.9 (8.7-10.3) mg/dL Calcium panel 12/12/21 12/13/21 Range/Units 07:16 06:21 Calcium 8.6 L 8.9 (8.7-10.3) mg/dL Pituitary panel 12/12/21 12/13/21 Range/Units 07:16 06:21 Sodium 147 H 146 H (135-145) mmol/L Potassium 4.2 4.8 (3.5-5.5) mmol/L Chloride 111 H 113 H (96-109) mmol/L Carbon Dioxide 24.3 26.0 (20.0-27.5) mmol/L BUN 38.6 H 42.3 H (9.0-27.0) mg/dL Creatinine 1.2 1.2 (0.6-1.5) mg/dL Glucose 87 92 (70-110) mg/dL Calcium 8.6 L 8.9 (8.7-10.3) mg/dL Adrenal panel 12/12/21 12/13/21 Range/Units 07:16 06:21 Sodium 147 H 146 H (135-145) mmol/L Potassium 4.2 4.8 (3.5-5.5) mmol/L Chloride 111 H 113 H (96-109) mmol/L Carbon Dioxide 24.3 26.0 (20.0-27.5) mmol/L BUN 38.6 H 42.3 H (9.0-27.0) mg/dL Creatinine 1.2 1.2 (0.6-1.5) mg/dL Glucose 87 92 (70-110) mg/dL Calcium 8.6 L 8.9 (8.7-10.3) mg/dL
[2021-12-13] MEDS: VIT A,C & E-LUTEIN-MINERALS 1 EACH TAB PO SCH ×2 (14:47→20:30)
--- NOTE | 2021-12-13 16:39 | CT ---
EXAMINATION TYPE: CT abdomen pelvis wo con, CT hip LT wo con DATE OF EXAM: 12/13/2021 COMPARISON: CT dated 05/04/2021 HISTORY: Fall and left hip/back of the thigh hematoma. CT DLP: 1115.2 mGycm Automated exposure control for dose reduction was used. TECHNIQUE: Helical acquisition of images was performed from the lung bases through the pelvis. Dedic ated multiplanar CT scan of the left hip and thigh without IV contrast administration. 3-D reconstruc tion images were performed on an independent workstation and reviewed. FINDINGS: LUNG BASES: Bilateral basal subsegmental pulmonary atelectasis. 7 mm right middle lobe nodule with ri ght basal 4 mm nodule, stable. Cardiomegaly and coronary arterial atherosclerotic calcifications. LIVER/GB: Previous cholecystectomy. Pneumobilia. No definite hepatic focal lesion. PANCREAS: No significant abnormality is seen. SPLEEN: No significant abnormality is seen. ADRENALS: No significant abnormality is seen. KIDNEYS: Bilateral perinephric fat stranding, nonspecific. No obvious hydroureter or hydronephrosis. FREE AIR: No free air is visualized RETROPERITONEAL ADENOPATHY: None visualized REPRODUCTIVE ORGANS: Previous hysterectomy. No gross adnexal mass. URINARY BLADDER: Slightly thickened urinary bladder wall, please correlate with urinalysis results. PELVIC ADENOPATHY: No pathologically enlarged pelvic lymph nodes. OSSEOUS STRUCTURES: Osteopenia. Deformity of the iliac bones which could represent sequela of previo us trauma/intervention, stable. Previous lower lumbar and posterior sacral fixation, appreciated prev iously. Marked degenerative changes of the lower thoracic and lumbar spine. No definite acute lower l umbar, pelvic bone, left hip or left femoral fracture identified. Dextroscoliosis of the thoracolumba r junction. BOWEL: Colonic diverticulosis with fecal loading of the colon. OTHER: Arterial atherosclerotic calcifications. No sizable ascites. Asymmetrical swelling of the infe rior aspect of the left gluteus muscles with suspected intramuscular hematoma roughly measuring 4.3 x 7.6 cm. Underlying lesion cannot be excluded. Left hip subcutaneous fat stranding and overlying skin thickening. IMPRESSION: Left inferior gluteal asymmetrical swelling with suspected intramuscular hematoma as described above. Underlying lesion at that location cannot be excluded by this nonenhanced CT scan. Subcutaneous fat stranding and overlying skin thickening along the lateral aspect of the left hip. Th is could be related to acute traumatic injury. Please correlate clinically. No definite acute pelvic bone, left femoral or left hip fracture identified. Other findings as descri bed above.
[2021-12-13] MEDS: ATORVASTATIN 20 MG TAB PO SCH (20:29)
[2021-12-13] MEDS: LORATADINE 10 MG TAB PO SCH (20:29)
[2021-12-13] MEDS: MONTELUKAST 10 MG TAB PO SCH (20:29)
[2021-12-13] MEDS: NON FORMULARY DRUG (Acetaminophen/Diphenhydramine [Tylenol Pm 500-25mg] 1 EACH Tablet) PO SCH (21:26)
--- NOTE | 2021-12-14 01:27 | P.PN ---
Subjective Progress Note Date: 12/13/21 Patient is a 81-year-old female with a known history of coronary artery disease with stent placement, paroxysmal atrial fibrillation on anticoagulation with Eliquis, hypertension, anxiety was brought to ER due to presyncopal episode at work. Patient is working at [employer] where she felt felt lightheaded and dizzy, felt like passing out. Patient sat down for a few minutes and symptoms resolved. Denied any complaints of chest pain or shortness of breath. Patient does have nausea. No diaphoresis. No headache. No cough or sputum production. Patient had a fall yesterday and had alarge bruise on her left hip area.patient was trying to get out of the vehicle and slipped and fell. Patient does have history of coronary disease and underwent cardiac catheterization in October 2021. Patient is currently on dual antiplatelet agents and also on anticoagulationfor paroxysmal atrial fibrillation.patient was recently started on amiodarone 200 mg twice a day.neck and chest x-ray showed no active cardiac pulmonary disease. Patient says that she noticed dark brown stools for the past 2 days. Laboratory data initial WBC 9.3 hemoglobin 9.1 and platelets 16.6 Neutrophils 7.8 INR 1.2 Sodium 1-47 potassium3.9 chloride 101 bicarb is24, BUN 48 and creatinine 1.26 troponin 1 negative.FOBT positive EKG/tachycardia with heart rate 105 12/12/2021 Patient is resting in bed. Awake alert [place] x3. Denies any dark-colored stools. Patient is being current on IV Protonix. No complaints of abdominal pain. No nausea. No headache or dizziness or lightheadedness. Laboratory test showed hemoglobin 7.6 today. Sodium 147 potassium 4.2 chloride 111 bicarb is 24.3 and BUN 38.6 and creatinine 1.2. Calcium 8.6. proBNP 3440. Repeat hemoglobin level is 8.2 today. Anticoagulation is on hold. General surgery was consulted for possible EGD and evaluate for GI bleed. 12/13/2021 Hao is seen and evaluated this am and general surgery following for dark stools noted and possible GI bleed and plans for endoscope with ECG and colonoscopy on . Hemoglobin is 8.2 and stable. BMP improving and sodium is mildly elevated and trending down. Patient is on full liquid diet and will begin prep soon for colonoscopy. Patient with a large bruising noted to the left hip and thigh from her fall and was on Eliquis which is currently being held. Left thigh CT ordered. Patient is afebrile and denies chest pain or shortness of breath. Patient is afebrile. Review of systems: Constitutional: No reports of fatigue, fever, or chills Cardiovascular: No reports of chest pain or palpitations Respiratory: No reports of shortness of breath or cough GI: No reports of nausea, vomiting, or diarrhea, reports of no further dark stools : No reports of dysuria or retention Neurovascular: No reports of weakness or numbness, reports left thigh tenderness All medications have been reviewed Active Medications Amiodarone HCl (Amiodarone 200 Mg Tab) 200 mg PO BID [facility] Last Admin: 12/13/21 09:05 Dose: 200 mg Atorvastatin Calcium (Atorvastatin 20 Mg Tab) 20 mg PO [facility] Last Admin: 12/12/21 21:27 Dose: 20 mg Escitalopram Oxalate (Escitalopram 10 Mg Tab) 10 mg PO DAILY [facility] Last Admin: 12/13/21 09:07 Dose: 10 mg Sodium Chloride (Saline 0.45%) 1,000 mls @ 75 mls/hr IV .[id number] [facility] Last Admin: 12/13/21 14:47 Dose: Not Given Loratadine (Loratadine 10 Mg Tab) 10 mg PO [facility] Last Admin: 12/12/21 21:27 Dose: 10 mg Metoprolol Succinate (Metoprolol Succinate (Er) 25 Mg Tab.Er.24h) 25 mg PO DAILY [facility] Last Admin: 12/13/21 09:05 Dose: 25 mg Montelukast Sodium (Montelukast 10 Mg Tab) 10 mg PO [facility] Last Admin: 12/12/21 21:27 Dose: 10 mg Multivitamins/Minerals (Vit A,C & Y-Haaabf-Mibxkoep 1 Each Tab) 1 each PO BID [facility] Last Admin: 12/13/21 14:47 Dose: Not Given Naloxone HCl (Naloxone 0.4 Mg/Ml 1 Ml Vial) 0.2 mg IV Q2M PRN PRN Reason: Opioid Reversal Non-Formulary Medication (Acetaminophen/Diphenhydramine [Tylenol Pm 500-25mg]) 1 tab PO [facility] Last Admin: 12/12/21 21:31 Dose: Not Given Non-Formulary Medication (Mirabegron [Myrbetriq]) 25 mg PO DAILY [facility] Last Admin: 12/13/21 09:08 Dose: Not Given Pantoprazole Sodium (Pantoprazole 40 Mg/10 Ml Vial) 40 mg IVP BID [facility] Last Admin: 12/13/21 09:05 Dose: 40 mg Physical exam: Patient is lying in the bed, awake alert and oriented.. HEENT: Normocephalic. Neck is supple. Pupils reactive. Nostrils clear. Oral cavity is moist. Neck reveals no JVD, carotid bruits, or thyromegaly. CHEST EXAMINATION: Trachea is central. Symmetrical expansion. Lung saul clear to auscultation and percussion. CARDIAC: S1, S2 muffled. No murmurs ABDOMEN: Soft. Bowel sounds present. Nontender. No organomegaly. No abdominal bruits. Extremities: reveal no edema. No clubbing or cyanosis, left thigh with significant bruising with some tenderness on palpation Neurologically awake, alert, oriented x3 with well-coordinated movements. No focal deficits noted Skin: No rash or skin lesions. Psychiatric: Cooperative. Non-suicidal, anxious. Musculoskeletal: No joint swelling or deformity. Normal range of motion. Assessment: Acute presyncopal episode / symptomatic anemia. likely due to GI bleed Acute blood loss anemia. Possibly secondary to GI bleed Hypernatremia Coronary artery disease with history of stent placement in October 2021 Persistent atrial fibrillation on anticoagulation with Eliquis Hypertension Anxiety Large bruise over the left hip due to fall yesterday while getting out of the vehicle. most likely hematoma DVT prophylaxis with SCDs Full code Plan: Recommend Patient to be continued on telemetry monitoring. IVF with half normal saline. Sodium trending down. Recommend to continue with metoprolol and hold anticoagulation Eliquis for now given possible GI bleed and significant left thigh bruising. CT of the left thigh ordered and pending. Patient continued on Protonix 40 mg twice daily and monitor hemoglobin closely. Hemoglobin is 8.2 today. Gen. surgery following and planning on EGD/colonoscopy on monitor H&H closely, repeat am labs ordered Cardiology following for persistent atrial fibrillation. Due to multiple complex medical issues, prognosis is guarded. The impression and plan of care has been dictated by Stefani Carmichael, Nurse Practitioner as directed. Dr. Ziggy MD I have performed a history and examination and MDM of this patient, discussed the same with the dictator, and agree with the dictator's assessment and plan as written ,documented as a scribe. Based on total visit time, I have performed more than 50% of the visit. Objective - Vital Signs Vital signs: Vital Signs Temp 98 F 12/13/21 12:37 Pulse 90 12/13/21 12:37 Resp 16 12/13/21 12:37 BP 119/70 12/13/21 12:37 Pulse Ox 99 12/13/21 12:37 FiO2 Intake & Output 12/12/21 12/13/21 12/13/21 18:59 06:59 18:59 Intake Total 590 Balance 590 Intake: Oral 590 Other: Voiding Method Toilet Toilet Toilet # Voids 4 3 - Labs CBC & Chem 7: 12/13/21 06:21 12/13/21 06:21 Labs: Abnormal Lab Results - Last 24 Hours (Table) 12/12/21 12/13/21 12/13/21 Range/Units 16:48 06:21 06:21 RBC 2.68 L 2.82 L (3.80-5.40) m/uL Hgb 8.2 L 8.2 L (11.4-16.0) gm/dL Hct 25.8 L 27.5 L (34.0-46.0) % MCV 97.5 H (80.0-97.0) fL MCHC 29.8 L (32.0-37.0) g/dL RDW 17.4 H 18.2 H (11.5-15.5) % Absolute Nucleated RBC 0.02 H (0.00-0.00) X 10*3/uL NRBC/100 WBC Diff 0.2 H (0.0-0.0) /100 WBCS Sodium 146 H (135-145) mmol/L Chloride 113 H (96-109) mmol/L Anion Gap 7.00 L (10.00-18.00) mmol/L BUN 42.3 H (9.0-27.0) mg/dL Est GFR (CKD-EPI)AfAm 49.1 L (60.0-200.0) Est GFR (CKD-EPI)NonAf 42.3 L (60.0-200.0) BUN/Creatinine Ratio 35.25 H (12.00-20.00) Ratio
[2021-12-14] MEDS: METOPROLOL SUCCINATE (ER) 25 MG TAB.ER.24H PO SCH (08:04)
[2021-12-14] MEDS: PANTOPRAZOLE 40 MG/10 ML VIAL IVP SCH ×2 (08:04→23:21)
[2021-12-14] MEDS: AMIODARONE 200 MG TAB PO SCH ×2 (08:04→23:22)
[2021-12-14] MEDS: ESCITALOPRAM 10 MG TAB PO SCH (08:04)
[2021-12-14] MEDS: NON FORMULARY DRUG (Mirabegron [Myrbetriq] 25 MG Tablet) PO SCH (08:06)
[2021-12-14] MEDS: VIT A,C & E-LUTEIN-MINERALS 1 EACH TAB PO SCH (09:37)
[2021-12-14 09:38] LABS: HCT 27.2 % (37.2-46.3); HGB 8.2 g/dL (12.0-15.0); MCH 29.8 pg (27.0-32.0); MCHC 30.1 g/dL (32.0-37.0); MCV 98.9 fL (80.0-97.0); Mean Platelet Volume 11.5 fL (9.5-12.2); NRBC Per 100 WBC 0.5 /100 WBCS (0.0-0.0); Platelet Count 232 X 10*3/uL (140-440); RBC 2.75 X 10*6/uL (4.10-5.20); RDW 18.8 % (11.5-14.5); WBC 8.23 X 10*3/uL (4.50-10.00)
[2021-12-14 09:42] LABS: African American GFR (CKD) 61.2 (60.0-200.0); BUN/Creat Ratio 35.5 Ratio (12.00-20.00); Blood Urea Nitrogen 35.5 mg/dL (9.0-27.0); Calcium 8.5 mg/dL (8.7-10.3); Non-African American GFR(CKD) 52.8 (60.0-200.0); Potassium 4.6 mmol/L (3.5-5.5)
--- NOTE | 2021-12-14 13:39 | P.PN ---
Subjective Progress Note Date: 12/14/21 CHIEF COMPLAINT: Dizziness HISTORY OF PRESENT ILLNESS: Patient presented with dizziness and near syncopal episode. She has been anemic. She has a large hematoma on the left hip and leg. Patient does have a stool positive for occult blood. Hemoglobin today is stable and remains at 8.2. Her stool this morning was brown. Patient does not report any change in the color of her stools. Her Eliquis and Mobic have been discontinued. She denies any abdominal pain. Denies any nausea or vomiting. Vitals stable. Afebrile. WBC 8.23 Hgb 8.2 platelets 232 sodium 143 potassium 4.6 creatinine 1.0 Patient seen and examined with Dr. garay PHYSICAL EXAM: VITAL SIGNS: Reviewed. GENERAL: Well-developed in no acute distress. HEENT: No sclera icterus. Extraocular movements grossly intact. Moist buccal mucosa. Head is atraumatic, normocephalic. ABDOMEN: Soft. Nondistended. Nontender. NEUROLOGIC: Alert and oriented. Cranial nerves II through XII grossly intact. ASSESSMENT: 1. Anemia. Stool for occult blood positive 2. Large left hip and thigh hematoma 3. Dizziness and near syncope 4. On blood thinner and NSAIDs at home PLAN: -Patient scheduled for EGD and colonoscopy on , 12/16/[address] garay -Continue a full liquid diet today -Start GoLYTELY prep tomorrow morning -Start clear liquid diet tomorrow morning -Continue supportive care -Continue to hold Eliquis and Mobic -Continue to monitor for signs and symptoms of bleeding -Continue to monitor hemoglobin Physician Dinkey Locomotive Operator note has been reviewed by physician. Signing provider agrees with the documented findings, assessment, and plan of care. Objective - Vital Signs Vital signs: Vital Signs Temp 97.5 F L 12/14/21 12:58 Pulse 94 12/14/21 12:58 Resp 16 12/14/21 12:58 BP 119/74 12/14/21 12:58 Pulse Ox 99 12/14/21 12:58 FiO2 Intake & Output 12/13/21 12/14/21 12/14/21 18:59 06:59 18:59 Intake Total 900 750 Balance 900 750 Intake: Intake, IV Titration 900 750 Amount Sodium Chloride 0.45% 1, 900 750 000 ml @ 75 mls/hr IV . [id number] NOHELIA Rx#:[id number] Other: Voiding Method Toilet Toilet Toilet # Voids 1 - Labs CBC & Chem 7: 12/14/21 05:47 12/14/21 05:47 Labs: Abnormal Lab Results - Last 24 Hours (Table) 12/14/21 12/14/21 Range/Units 05:47 05:47 RBC 2.75 L (4.10-5.20) X 10*6/uL Hgb 8.2 L (12.0-15.0) g/dL Hct 27.2 L (37.2-46.3) % MCV 98.9 H (80.0-97.0) fL MCHC 30.1 L (32.0-37.0) g/dL RDW 18.8 H (11.5-14.5) % Absolute Nucleated RBC 0.04 H (0.00-0.00) X 10*3/uL NRBC/100 WBC Diff 0.5 H (0.0-0.0) /100 WBCS Chloride 110 H (96-109) mmol/L BUN 35.5 H (9.0-27.0) mg/dL Est GFR (CKD-EPI)NonAf 52.8 L (60.0-200.0) BUN/Creatinine Ratio 35.50 H (12.00-20.00) Ratio Calcium 8.5 L (8.7-10.3) mg/dL
--- NOTE | 2021-12-14 15:08 | P.PN ---
Subjective Progress Note Date: 12/14/21 Patient is a 81-year-old female with a known history of coronary artery disease with stent placement, paroxysmal atrial fibrillation on anticoagulation with Eliquis, hypertension, anxiety was brought to ER due to presyncopal episode at work. Patient is working at [employer] where she felt felt lightheaded and dizzy, felt like passing out. Patient sat down for a few minutes and symptoms resolved. Denied any complaints of chest pain or shortness of breath. Patient does have nausea. No diaphoresis. No headache. No cough or sputum production. Patient had a fall yesterday and had alarge bruise on her left hip area.patient was trying to get out of the vehicle and slipped and fell. Patient does have history of coronary disease and underwent cardiac catheterization in October 2021. Patient is currently on dual antiplatelet agents and also on anticoagulationfor paroxysmal atrial fibrillation.patient was recently started on amiodarone 200 mg twice a day.neck and chest x-ray showed no active cardiac pulmonary disease. Patient says that she noticed dark brown stools for the past 2 days. Laboratory data initial WBC 9.3 hemoglobin 9.1 and platelets 16.6 Neutrophils 7.8 INR 1.2 Sodium 1-47 potassium3.9 chloride 101 bicarb is24, BUN 48 and creatinine 1.26 troponin 1 negative.FOBT positive EKG/tachycardia with heart rate 105 12/12/2021 Patient is resting in bed. Awake alert [place] x3. Denies any dark-colored stools. Patient is being current on IV Protonix. No complaints of abdominal pain. No nausea. No headache or dizziness or lightheadedness. Laboratory test showed hemoglobin 7.6 today. Sodium 147 potassium 4.2 chloride 111 bicarb is 24.3 and BUN 38.6 and creatinine 1.2. Calcium 8.6. proBNP 3440. Repeat hemoglobin level is 8.2 today. Anticoagulation is on hold. General surgery was consulted for possible EGD and evaluate for GI bleed. 12/13/2021 Hao is seen and evaluated this am and general surgery following for dark stools noted and possible GI bleed and plans for endoscope with ECG and colonoscopy on . Hemoglobin is 8.2 and stable. BMP improving and sodium is mildly elevated and trending down. Patient is on full liquid diet and will begin prep soon for colonoscopy. Patient with a large bruising noted to the left hip and thigh from her fall and was on Eliquis which is currently being held. Left thigh CT ordered. Patient is afebrile and denies chest pain or shortness of breath. Patient is afebrile. 12/14/2021 Patient is seen in follow-up today with general surgery following. Plan is for EGD and colonoscopy this . Hemoglobin remains stable at 8.2 with no active bleeding noted. Sodium 143 with a potassium of 4.6 and creatinine is 1.0 . Anticoagulant and NSAIDs are on hold and patient continues with extensive bruising noted to the left buttock hip and thigh region. Patient underwent abdominal pelvis and hip CT which showed left inferior gluteal asymmetrical swelling with suspected intramuscular hematoma with noted osteopenia with no definite acute lower lumbar pelvic bone, left hip, or left humeral fracture identified and also some subcutaneous fat stranding and overlying skin thickening along the lateral aspect of the left hip that could be related to acute traumatic injury. Recommend continue holding anticoagulant and will begin bowel prep and downgrade diet to clear liquids starting tomorrow morning. Recommend close monitoring of hemoglobins and follow-up with repeat labs. Review of systems: Constitutional: No reports of fatigue, fever, or chills Cardiovascular: No reports of chest pain or palpitations Respiratory: No reports of shortness of breath or cough GI: No reports of nausea, vomiting, or diarrhea, reports of no further dark stools : No reports of dysuria or retention Neurovascular: No reports of weakness or numbness, reports left thigh tenderness and bruising All medications have been reviewed Active Medications Amiodarone HCl (Amiodarone 200 Mg Tab) 200 mg PO BID [facility] Last Admin: 12/14/21 08:04 Dose: 200 mg Atorvastatin Calcium (Atorvastatin 20 Mg Tab) 20 mg PO [facility] Last Admin: 12/13/21 20:29 Dose: 20 mg Escitalopram Oxalate (Escitalopram 10 Mg Tab) 10 mg PO DAILY [facility] Last Admin: 12/14/21 08:04 Dose: 10 mg Sodium Chloride (Saline 0.45%) 1,000 mls @ 75 mls/hr IV .[id number] [facility] Last Admin: 12/13/21 20:29 Dose: 75 mls/hr Loratadine (Loratadine 10 Mg Tab) 10 mg PO [facility] Last Admin: 12/13/21 20:29 Dose: 10 mg Metoprolol Succinate (Metoprolol Succinate (Er) 25 Mg Tab.Er.24h) 25 mg PO DAILY [facility] Last Admin: 12/14/21 08:04 Dose: 25 mg Montelukast Sodium (Montelukast 10 Mg Tab) 10 mg PO HS [facility] Last Admin: 12/13/21 20:29 Dose: 10 mg Multivitamins/Minerals (Vit A,C & S-Psyyxp-Avlwgyjh 1 Each Tab) 1 each PO BID [facility] Last Admin: 12/14/21 09:37 Dose: 1 each Naloxone HCl (Naloxone 0.4 Mg/Ml 1 Ml Vial) 0.2 mg IV Q2M PRN PRN Reason: Opioid Reversal Non-Formulary Medication (Acetaminophen/Diphenhydramine [Tylenol Pm 500-25mg]) 1 tab PO HS [facility] Last Admin: 12/13/21 21:26 Dose: Not Given Non-Formulary Medication (Mirabegron [Myrbetriq]) 25 mg PO DAILY [facility] Last Admin: 12/14/21 08:06 Dose: Not Given Pantoprazole Sodium (Pantoprazole 40 Mg/10 Ml Vial) 40 mg IVP BID [facility] Last Admin: 12/14/21 08:04 Dose: 40 mg Physical exam: Patient is sitting up in the chair, awake alert and oriented.. HEENT: Normocephalic. Neck is supple. Pupils reactive. Nostrils clear. Oral cavity is moist. Neck reveals no JVD, carotid bruits, or thyromegaly. CHEST EXAMINATION: Trachea is central. Symmetrical expansion. Lung saul clear to auscultation and percussion. CARDIAC: S1, S2 muffled. No murmurs ABDOMEN: Soft. Bowel sounds present. Nontender. No organomegaly. No abdominal bruits. Extremities: reveal no edema. No clubbing or cyanosis, left thigh and left buttock with significant bruising with some tenderness on palpation Neurologically awake, alert, oriented x3 with well-coordinated movements. No focal deficits noted Skin: No rash or skin lesions. Psychiatric: Cooperative. Non-suicidal, anxious. Musculoskeletal: No joint swelling or deformity. Normal range of motion. Assessment: Acute presyncopal episode / symptomatic anemia. likely due to GI bleed Acute blood loss anemia. Possibly secondary to GI bleed Large left gluteal and thigh hematoma as noted on CT Hypernatremia Coronary artery disease with history of stent placement in October 2021 Persistent atrial fibrillation on anticoagulation with Eliquis, currently on hold Hypertension Anxiety DVT prophylaxis with SCDs Full code Plan: Recommend Patient to be continued on telemetry monitoring. IVF with half normal saline. Sodium trending down. Recommend to continue with metoprolol and hold anticoagulation Eliquis for now given possible GI bleed and significant left thigh bruising. CT of the left thigh showing hematoma. Patient continued on Protonix 40 mg twice daily and monitor hemoglobin closely. Hemoglobin is 8.2 today. Gen. surgery following and planning on EGD/colonoscopy on , will downgrade diet to clear liquids and start bowel prep in the morning monitor H&H closely, repeat am labs ordered Cardiology following for persistent atrial fibrillation. Due to multiple complex medical issues, prognosis is guarded. The impression and plan of care has been dictated by Stefani Carmichael, Nurse Practitioner as directed. Dr. Ziggy MD I have performed a history and examination and MDM of this patient, discussed the same with the dictator, and agree with the dictator's assessment and plan as written ,documented as a scribe. Based on total visit time, I have performed more than 50% of the visit. Objective - Vital Signs Vital signs: Vital Signs Temp 98.1 F 12/14/21 05:00 Pulse 91 12/14/21 08:01 Resp 16 12/14/21 08:01 BP 113/71 12/14/21 08:01 Pulse Ox 99 12/14/21 08:01 FiO2 Intake & Output 12/13/21 12/14/21 12/14/21 18:59 06:59 18:59 Intake Total 900 750 Balance 900 750 Intake: Intake, IV Titration 900 750 Amount Sodium Chloride 0.45% 1, 900 750 000 ml @ 75 mls/hr IV . [id number] [facility] Rx#:[id number] Other: Voiding Method Toilet Toilet Toilet # Voids 1 - Labs CBC & Chem 7: 12/14/21 05:47 12/14/21 05:47
[2021-12-14] MEDS: SODIUM CHLORIDE 0.45% 1,000 ML IV SCH ×2 (16:48→23:22)
[2021-12-14] MEDS: ATORVASTATIN 20 MG TAB PO SCH (23:22)
[2021-12-14] MEDS: MONTELUKAST 10 MG TAB PO SCH (23:22)
[2021-12-14] MEDS: LORATADINE 10 MG TAB PO SCH (23:22)
[2021-12-14] MEDS: NON FORMULARY DRUG (Acetaminophen/Diphenhydramine [Tylenol Pm 500-25mg] 1 EACH Tablet) PO SCH (23:26)
[2021-12-15] MEDS: VIT A,C & E-LUTEIN-MINERALS 1 EACH TAB PO SCH ×3 (00:15→20:16)
[2021-12-15] MEDS ORDERED: PEG 3350-NA SULF,BICARB,CL/KCL 4,000 ML BOTTLE PO ONE (08:00)
[2021-12-15] MEDS: ESCITALOPRAM 10 MG TAB PO SCH (08:07)
[2021-12-15] MEDS: AMIODARONE 200 MG TAB PO SCH ×2 (08:07→20:16)
[2021-12-15] MEDS: METOPROLOL SUCCINATE (ER) 25 MG TAB.ER.24H PO SCH (08:07)
[2021-12-15] MEDS: PANTOPRAZOLE 40 MG/10 ML VIAL IVP SCH ×2 (08:07→20:16)
[2021-12-15] MEDS: NON FORMULARY DRUG (Mirabegron [Myrbetriq] 25 MG Tablet) PO SCH (08:08)
[2021-12-15 09:12] LABS: HCT 26.7 % (37.2-46.3); HGB 8.1 g/dL (12.0-15.0); MCH 29.5 pg (27.0-32.0); MCHC 30.3 g/dL (32.0-37.0); MCV 97.1 fL (80.0-97.0); Mean Platelet Volume 11.6 fL (9.5-12.2); NRBC Per 100 WBC 0.6 /100 WBCS (0.0-0.0); Platelet Count 239 X 10*3/uL (140-440); RBC 2.75 X 10*6/uL (4.10-5.20); RDW 19.6 % (11.5-14.5)
[2021-12-15 10:03] LABS: African American GFR (CKD) 61.2 (60.0-200.0); Anion Gap 9.6 mmol/L (10.00-18.00); BUN/Creat Ratio 24.7 Ratio (12.00-20.00); Blood Urea Nitrogen 24.7 mg/dL (9.0-27.0); Calcium 8.7 mg/dL (8.7-10.3); Carbon Dioxide 21.4 mmol/L (20.0-27.5); Non-African American GFR(CKD) 52.8 (60.0-200.0); Potassium 4.8 mmol/L (3.5-5.5)
--- NOTE | 2021-12-15 11:23 | P.PN ---
Subjective Progress Note Date: 12/15/21 CHIEF COMPLAINT: Dizziness HISTORY OF PRESENT ILLNESS: Patient presented with dizziness and near syncopal episode. She has been anemic. She has a large hematoma on the left hip and leg. Patient does have a stool positive for occult blood. Hemoglobin today is stable at 8.1. Her bowel movement from yesterday was brown. Her Eliquis and Mobic have been discontinued. She denies any abdominal pain. Afebrile. WBC is 8 Hgb 8.1 platelets 239 sodium 141 potassium 4.8 creatinine 1.0 Patient seen and examined with Dr. garay PHYSICAL EXAM: VITAL SIGNS: Reviewed. GENERAL: Well-developed in no acute distress. HEENT: No sclera icterus. Extraocular movements grossly intact. Moist buccal mucosa. Head is atraumatic, normocephalic. ABDOMEN: Soft. Nondistended. Nontender. NEUROLOGIC: Alert and oriented. Cranial nerves II through XII grossly intact. ASSESSMENT: 1. Anemia. Stool for occult blood positive 2. Large left hip and thigh hematoma 3. Dizziness and near syncope 4. On blood thinner and NSAIDs at home PLAN: -Patient scheduled for EGD and colonoscopy on , 12/16/[address] garay -Start GoLYTELY bowel prep this morning -Clear liquid diet today -Nothing by mouth after midnight -Continue to hold Eliquis and Mobic -Continue to monitor for signs and symptoms of bleeding -Continue to monitor hemoglobin Physician Radiology Practitioner Assistant note has been reviewed by physician. Signing provider agrees with the documented findings, assessment, and plan of care. Objective - Vital Signs Vital signs: Vital Signs Temp 97.9 F 12/15/21 05:00 Pulse 90 12/15/21 05:00 Resp 16 12/15/21 05:00 BP 167/80 12/15/21 05:00 Pulse Ox 99 12/15/21 05:00 FiO2 Intake & Output 12/14/21 12/15/21 12/15/21 18:59 06:59 18:59 Intake Total 1880 Balance 1880 Intake: Intake, IV Titration 900 Amount Sodium Chloride 0.45% 1, 900 000 ml @ 75 mls/hr IV . [id number] [facility] Rx#:[id number] Oral 980 Other: Voiding Method Toilet Toilet # Voids 4 2 # Bowel Movements 2 - Labs CBC & Chem 7: 12/15/21 06:11 12/15/21 06:11 Labs: Abnormal Lab Results - Last 24 Hours (Table) 12/15/21 12/15/21 Range/Units 06:11 06:11 RBC 2.75 L (4.10-5.20) X 10*6/uL Hgb 8.1 L (12.0-15.0) g/dL Hct 26.7 L (37.2-46.3) % MCV 97.1 H (80.0-97.0) fL MCHC 30.3 L (32.0-37.0) g/dL RDW 19.6 H (11.5-14.5) % Absolute Nucleated RBC 0.05 H (0.00-0.00) X 10*3/uL NRBC/100 WBC Diff 0.6 H (0.0-0.0) /100 WBCS Chloride 110 H (96-109) mmol/L Anion Gap 9.60 L (10.00-18.00) mmol/L Est GFR (CKD-EPI)NonAf 52.8 L (60.0-200.0) BUN/Creatinine Ratio 24.70 H (12.00-20.00) Ratio
[2021-12-15] MEDS: SODIUM CHLORIDE 0.45% 1,000 ML IV SCH (15:29)
[2021-12-15] MEDS: NON FORMULARY DRUG (Acetaminophen/Diphenhydramine [Tylenol Pm 500-25mg] 1 EACH Tablet) PO SCH (19:28)
[2021-12-15] MEDS: MONTELUKAST 10 MG TAB PO SCH (20:16)
[2021-12-15] MEDS: ATORVASTATIN 20 MG TAB PO SCH (20:16)
[2021-12-15] MEDS: LORATADINE 10 MG TAB PO SCH (20:16)
[2021-12-16] MEDS: SODIUM CHLORIDE 0.45% 1,000 ML IV SCH (04:44)
--- NOTE | 2021-12-16 05:12 | P.PN ---
Subjective Progress Note Date: 12/15/21 Patient is a 81-year-old female with a known history of coronary artery disease with stent placement, paroxysmal atrial fibrillation on anticoagulation with Eliquis, hypertension, anxiety was brought to ER due to presyncopal episode at work. Patient is working at [employer] where she felt felt lightheaded and dizzy, felt like passing out. Patient sat down for a few minutes and symptoms resolved. Denied any complaints of chest pain or shortness of breath. Patient does have nausea. No diaphoresis. No headache. No cough or sputum production. Patient had a fall yesterday and had alarge bruise on her left hip area.patient was trying to get out of the vehicle and slipped and fell. Patient does have history of coronary disease and underwent cardiac catheterization in October 2021. Patient is currently on dual antiplatelet agents and also on anticoagulationfor paroxysmal atrial fibrillation.patient was recently started on amiodarone 200 mg twice a day.neck and chest x-ray showed no active cardiac pulmonary disease. Patient says that she noticed dark brown stools for the past 2 days. Laboratory data initial WBC 9.3 hemoglobin 9.1 and platelets 16.6 Neutrophils 7.8 INR 1.2 Sodium 1-47 potassium3.9 chloride 101 bicarb is24, BUN 48 and creatinine 1.26 troponin 1 negative.FOBT positive EKG/tachycardia with heart rate 105 12/12/2021 Patient is resting in bed. Awake alert [place] x3. Denies any dark-colored stools. Patient is being current on IV Protonix. No complaints of abdominal pain. No nausea. No headache or dizziness or lightheadedness. Laboratory test showed hemoglobin 7.6 today. Sodium 147 potassium 4.2 chloride 111 bicarb is 24.3 and BUN 38.6 and creatinine 1.2. Calcium 8.6. proBNP 3440. Repeat hemoglobin level is 8.2 today. Anticoagulation is on hold. General surgery was consulted for possible EGD and evaluate for GI bleed. 12/13/2021 Hao is seen and evaluated this am and general surgery following for dark stools noted and possible GI bleed and plans for endoscope with ECG and colonoscopy on . Hemoglobin is 8.2 and stable. BMP improving and sodium is mildly elevated and trending down. Patient is on full liquid diet and will begin prep soon for colonoscopy. Patient with a large bruising noted to the left hip and thigh from her fall and was on Eliquis which is currently being held. Left thigh CT ordered. Patient is afebrile and denies chest pain or shortness of breath. Patient is afebrile. 12/14/2021 Patient is seen in follow-up today with general surgery following. Plan is for EGD and colonoscopy this . Hemoglobin remains stable at 8.2 with no active bleeding noted. Sodium 143 with a potassium of 4.6 and creatinine is 1.0 . Anticoagulant and NSAIDs are on hold and patient continues with extensive bruising noted to the left buttock hip and thigh region. Patient underwent abdominal pelvis and hip CT which showed left inferior gluteal asymmetrical swelling with suspected intramuscular hematoma with noted osteopenia with no definite acute lower lumbar pelvic bone, left hip, or left humeral fracture identified and also some subcutaneous fat stranding and overlying skin thickening along the lateral aspect of the left hip that could be related to acute traumatic injury. Recommend continue holding anticoagulant and will begin bowel prep and downgrade diet to clear liquids starting tomorrow morning. Recommend close monitoring of hemoglobins and follow-up with repeat labs. 12/15/2021 Patient is evaluated today and surgery following and patient is starting the bowel prep. Patient denies any bleeding noted in the stool. Patient will be clear liquid diet and NPO at midnight with tentative plans for EGD/Colonoscopy on . Patient continues with significant left thigh and buttock bruising. Eliquis is on hold. Patient is afebrile and denies any chest pain or shortness of breath. Patient is anxious about going home. Review of systems: Constitutional: No reports of fatigue, fever, or chills Cardiovascular: No reports of chest pain or palpitations Respiratory: No reports of shortness of breath or cough GI: No reports of nausea, vomiting, or diarrhea : No reports of dysuria or retention Neurovascular: No reports of weakness or numbness, reports left thigh tenderness and bruising All medications have been reviewed Active Medications Amiodarone HCl (Amiodarone 200 Mg Tab) 200 mg PO BID [facility] Last Admin: 12/15/21 20:16 Dose: 200 mg Atorvastatin Calcium (Atorvastatin 20 Mg Tab) 20 mg PO HS [facility] Last Admin: 12/15/21 20:16 Dose: 20 mg Escitalopram Oxalate (Escitalopram 10 Mg Tab) 10 mg PO DAILY [facility] Last Admin: 12/15/21 08:07 Dose: 10 mg Sodium Chloride (Saline 0.45%) 1,000 mls @ 75 mls/hr IV .[id number] [facility] Last Admin: 12/16/21 04:44 Dose: 75 mls/hr Loratadine (Loratadine 10 Mg Tab) 10 mg PO HS [facility] Last Admin: 12/15/21 20:16 Dose: 10 mg Metoprolol Succinate (Metoprolol Succinate (Er) 25 Mg Tab.Er.24h) 25 mg PO DAILY [facility] Last Admin: 12/15/21 08:07 Dose: 25 mg Montelukast Sodium (Montelukast 10 Mg Tab) 10 mg PO HS [facility] Last Admin: 12/15/21 20:16 Dose: 10 mg Multivitamins/Minerals (Vit A,C & M-Wifqku-Wssrilxf 1 Each Tab) 1 each PO BID [facility] Last Admin: 12/15/21 20:16 Dose: 1 each Naloxone HCl (Naloxone 0.4 Mg/Ml 1 Ml Vial) 0.2 mg IV Q2M PRN PRN Reason: Opioid Reversal Non-Formulary Medication (Acetaminophen/Diphenhydramine [Tylenol Pm 500-25mg]) 1 tab PO HS [facility] Last Admin: 12/15/21 19:28 Dose: Not Given Non-Formulary Medication (Mirabegron [Myrbetriq]) 25 mg PO DAILY [facility] Last Admin: 12/15/21 08:08 Dose: Not Given Pantoprazole Sodium (Pantoprazole 40 Mg/10 Ml Vial) 40 mg IVP BID [facility] Last Admin: 12/15/21 20:16 Dose: 40 mg Physical exam: Patient is sitting up in the chair, awake alert and oriented.. HEENT: Normocephalic. Neck is supple. Pupils reactive. Nostrils clear. Oral cavity is moist. Neck reveals no JVD, carotid bruits, or thyromegaly. CHEST EXAMINATION: Trachea is central. Symmetrical expansion. Lung saul clear to auscultation and percussion. CARDIAC: S1, S2 muffled. No murmurs ABDOMEN: Soft. Bowel sounds present. Nontender. No organomegaly. No abdominal bruits. Extremities: reveal no edema. No clubbing or cyanosis, left thigh and left buttock with significant bruising with some tenderness on palpation Neurologically awake, alert, oriented x3 with well-coordinated movements. No focal deficits noted Skin: No rash or skin lesions. Psychiatric: Cooperative. Non-suicidal, anxious. Musculoskeletal: No joint swelling or deformity. Normal range of motion. Assessment: Acute presyncopal episode / symptomatic anemia. likely due to GI bleed Acute blood loss anemia. Possibly secondary to GI bleed Large left gluteal and thigh hematoma as noted on CT Hypernatremia Coronary artery disease with history of stent placement in October 2021 Persistent atrial fibrillation on anticoagulation with Eliquis, currently on hold Hypertension Anxiety DVT prophylaxis with SCDs Full code Plan: Recommend Patient to be continued on telemetry monitoring. IVF with half normal saline. repeat labs ordered for am. Recommend to continue with metoprolol and hold anticoagulation Eliquis for now given possible GI bleed and significant left thigh bruising. CT of the left thigh showing hematoma. Continue to monitor closely with no worsening Patient continued on Protonix 40 mg twice daily and monitor hemoglobin closely. Hemoglobin is 8.1 today. Gen. surgery following and planning on EGD/colonoscopy tomorrow, diet to clear liquids and NPO at midnight, started bowel prep monitor H&H closely, repeat am labs ordered Cardiology following for persistent atrial fibrillation. Patient was scheduled for cardioversion with Dr. Kellogg in the outpatient setting and has been cancelled and office will call patient to reschedule appointment. Office is aware. Due to multiple complex medical issues, prognosis is guarded. Will await surgical report with possible discharge in 24-48 hours. The impression and plan of care has been dictated by Stefani Carmichael, Nurse Practitioner as directed. Dr. Ziggy MD I have performed a history and examination and MDM of this patient, discussed the same with the dictator, and agree with the dictator's assessment and plan as written ,documented as a scribe. Based on total visit time, I have performed more than 50% of the visit. Objective - Vital Signs Vital signs: Vital Signs Temp 97.9 F 12/15/21 05:00 Pulse 90 12/15/21 05:00 Resp 16 12/15/21 05:00 BP 167/80 12/15/21 05:00 Pulse Ox 99 12/15/21 05:00 FiO2 Intake & Output 12/14/21 12/15/21 12/15/21 18:59 06:59 18:59 Intake Total 1880 Balance 1880 Intake: Intake, IV Titration 900 Amount Sodium Chloride 0.45% 1, 900 000 ml @ 75 mls/hr IV . [id number] [facility] Rx#:[id number] Oral 980 Other: Voiding Method Toilet Toilet # Voids 4 2 # Bowel Movements 2 - Labs CBC & Chem 7: 12/15/21 06:11 12/15/21 06:11 Labs: Abnormal Lab Results - Last 24 Hours (Table) 12/14/21 12/14/21 Range/Units 05:47 05:47 RBC 2.75 L (4.10-5.20) X 10*6/uL Hgb 8.2 L (12.0-15.0) g/dL Hct 27.2 L (37.2-46.3) % MCV 98.9 H (80.0-97.0) fL MCHC 30.1 L (32.0-37.0) g/dL RDW 18.8 H (11.5-14.5) % Absolute Nucleated RBC 0.04 H (0.00-0.00) X 10*3/uL NRBC/100 WBC Diff 0.5 H (0.0-0.0) /100 WBCS Chloride 110 H (96-109) mmol/L BUN 35.5 H (9.0-27.0) mg/dL Est GFR (CKD-EPI)NonAf 52.8 L (60.0-200.0) BUN/Creatinine Ratio 35.50 H (12.00-20.00) Ratio Calcium 8.5 L (8.7-10.3) mg/dL
[2021-12-16] MEDS: NON FORMULARY DRUG (Mirabegron [Myrbetriq] 25 MG Tablet) PO SCH (07:13)
[2021-12-16 07:23] LABS: Anisocytosis Slight; HGB 8.4 gm/dL (11.4-16.0); Hypochromasia Slight; MCH 31.5 pg (25.0-35.0); MCHC 32.2 g/dL (31.0-37.0); Macrocytosis Slight; Mean Platelet Volume 8.3; Platelet Count 222 k/uL (150-450); RBC 2.66 m/uL (3.80-5.40); RDW 19.2 % (11.5-15.5); WBC 6.9 k/uL (3.8-10.6)
[2021-12-16 07:56] LABS: African American GFR (CKD) 66 (>60 ml/min/1.73 sqM); Anion Gap 6 mmol/L; Blood Urea Nitrogen 15 mg/dL (7-17); Calcium 8.4 mg/dL (8.4-10.2); Carbon Dioxide 24 mmol/L (22-30); Chloride 111 mmol/L (98-107); Glucose 93 mg/dL (74-99); Non-African American GFR(CKD) 57 (>60 ml/min/1.73 sqM); Potassium 4.4 mmol/L (3.5-5.1); Sodium 141 mmol/L (137-145)
[2021-12-16] MEDS: ESCITALOPRAM 10 MG TAB PO SCH (08:28)
[2021-12-16] MEDS: METOPROLOL SUCCINATE (ER) 25 MG TAB.ER.24H PO SCH (08:29)
[2021-12-16] MEDS: PANTOPRAZOLE 40 MG/10 ML VIAL IVP SCH (08:29)
[2021-12-16] MEDS: AMIODARONE 200 MG TAB PO SCH (08:29)
[2021-12-16] MEDS ORDERED: IV FLUID CONTINUATION 1,000 ML IV ONE (09:15)
--- NOTE | 2021-12-16 09:42 | P.OP ---
Date of Procedure: 12/16/21 Preoperative Diagnosis: Anemia,r GI bleed Postoperative Diagnosis: Antral gastritis Small hiatal hernia Severe diverticulosis Right colon polyp Procedure(s) Performed: EGD Colonoscopy Anesthesia: MAC Surgeon: Jorge Arredondo Pathology: other Condition: stable Disposition: PACU Description of Procedure: A stone the endoscopy table in the lateral position. She received IV sedation. The gastro-/oropharynx passed in the esophagus and into the stomach. Scope was then placed through the pylorus. The first and second portion of duodenum appeared normal. Scope was then brought back the antrum. There was a small hyperplastic polyp. This was biopsied. The scope was then retroflexed and remainder the stomach appeared normal. There was a small hiatal hernia. The GE junction was at 38 cm. The distal esophagus was minimal inflamed. Scope was withdrawn. The proximal esophagus appeared normal. Next digital rectal exam was performed which revealed no ebonized. The flexible colonoscope was then placed patient anus the entire colon. Ileocecal valve was visualized. The cecum normal. In the right colon there was a small polyp seen this removed with the cold forcep. The remainder the ascending colon appeared normal. In the transverse and descending and sigmoid colon there was extensive diverticular changes. The scope was then brought back the rectum this appeared normal. Scope withdrawn for patient. There is no evidence of any rectal bleeding. His presumed patient may have had bleeding from diverticulosis in the past.
[2021-12-16 12:05] VITALS: BP 143/85; PULSE 92; RESP 16; TEMP 98.1
--- NOTE | 2021-12-17 11:17 | P.DS ---
Providers Date of admission: 12/13/21 13:34 Expected date of discharge: 12/16/21 Attending physician: Bridgett Edmonds Consults: 12/12/21 00:12 Consult Physician Routine Consulting Provider: Ciro Camacho Consult Reason/Comments: Near Syncope Do you want consulting provider notified?: Yes, Notify in am 12/12/21 19:02 Consult Physician Routine Consulting Provider: Jorge Arredondo Consult Reason/Comments: gi bleed Do you want consulting provider notified?: Yes, Notify in am Primary care physician: Mazin Kumar Hospital Course: Final diagnosis Acute presyncopal episode / symptomatic anemia. likely due to GI bleed Acute blood loss anemia. Possibly secondary to GI bleed Diverticulosis noted on EGD/colonoscopy, no acute bleed Large left gluteal and thigh hematoma as noted on CT Hypernatremia Coronary artery disease with history of stent placement in October 2021 Persistent atrial fibrillation on anticoagulation with Eliquis, currently on hold Hypertension Anxiety DVT prophylaxis Full code Discharge disposition Patient is being discharged in a stable condition with guarded prognosis to home. Patient will follow-up with Dr. Kumar in the outpatient setting upon d ischarge. Patient is to follow up with cardiology Dr. Asad Kellogg and general surgery as scheduled. Patient to continue holding eliquis until follow up with cardiology next week. Total time taken is greater than 35 minutes. Hospital course This is a 81 -year-old female who was recently admitted with anemia possible GI bleed as occult was positive. General surgery following and prepped for EGD colonoscopy and showed diverticulosis and biopsies obtained. Hemoglobin is stable at 8.1 and patient instructed to follow up with cardiology Dr. eKllogg next week and continue holding eliquis until follow up and some improvement in bruising noted of the left buttock and leg. Patient was to have cardioversion and will discuss rescheduling at next week appointment. Currently no reports of chest pain, shortness of breath, or palpitations. Patient is afebrile. No reports of nausea or vomiting and patient is tolerating diet. Patient will be discharged home today. On exam vital signs are stable. Cardio S1, S2 are muffled. Respiratory system shows diminished breath sounds at the bases with no wheezing or rhonchi noted. Abdomen is soft and nontender. Nervous system shows no focal deficits. Please refer to medication reconciliation sheet for a list of medications. The impression and plan of care has been dictated by Stefani Carmichael, Nurse Practitioner as directed. MD Douglas I have performed a history and examination and MDM of this patient, discussed the same with the dictator, and agree with the dictator's assessment and plan as written ,documented as a scribe. Based on total visit time, I have performed more than 50% of the visit. Patient Condition at Discharge: Stable Plan - Discharge Summary Discharge Rx Participant: Yes New Discharge Prescriptions: New Pantoprazole [Protonix] 40 mg PO DAILY 30 Days #30 tab Continue Simvastatin [Zocor] 40 mg PO HS Montelukast [Singulair] 10 mg PO HS Cetirizine HCl [Zyrtec] 10 mg PO HS Calcium Carbonate/Vitamin D3 [Calcium 600-Vit D3 400 Caplet] 1 tab PO DAILY Acetaminophen/Diphenhydramine [Tylenol PM 500-25mg] 1 tab PO HS Multivit with Calcium,Iron,Min [Women's Multivitamin] 1 tab PO DAILY Ascorbic Acid [Vitamin C] 1,000 mg PO DAILY Cholecalciferol [Vitamin D3 (25 Mcg = 1000 Iu)] 50 mcg PO DAILY Vit C/E/Zn/Coppr/Lutein/Zeaxan [Preservision Areds 2 Softgel] 1 cap PO BID Mirabegron [Myrbetriq] 25 mg PO DAILY Escitalopram [Lexapro] 10 mg PO DAILY Metoprolol Succinate (ER) [Toprol XL] 25 mg PO DAILY Amiodarone [Cordarone] See Taper PO DIRECTED Discontinued Meloxicam 7.5 mg PO BID Furosemide [Lasix] 20 mg PO DAILY Apixaban [Eliquis] 5 mg PO BID Discharge Medication List Calcium Carbonate/Vitamin D3 [Calcium 600-Vit D3 400 Caplet] 1 tab PO DAILY 08/11/16 [History] Cetirizine HCl [Zyrtec] 10 mg PO HS 08/11/16 [History] Montelukast [Singulair] 10 mg PO HS 08/11/16 [History] Simvastatin [Zocor] 40 mg PO HS 08/11/16 [History] Acetaminophen/Diphenhydramine [Tylenol PM 500-25mg] 1 tab PO HS 06/09/17 [History] Ascorbic Acid [Vitamin C] 1,000 mg PO DAILY 06/09/17 [History] Multivit with Calcium,Iron,Min [Women's Multivitamin] 1 tab PO DAILY 06/09/17 [History] Cholecalciferol [Vitamin D3 (25 Mcg = 1000 Iu)] 50 mcg PO DAILY 05/04/21 [History] Escitalopram [Lexapro] 10 mg PO DAILY 05/04/21 [History] Mirabegron [Myrbetriq] 25 mg PO DAILY 05/04/21 [History] Vit C/E/Zn/Coppr/Lutein/Zeaxan [Preservision Areds 2 Softgel] 1 cap PO BID 05/04/21 [History] Metoprolol Succinate (ER) [Toprol XL] 25 mg PO DAILY 11/18/21 [History] Amiodarone [Cordarone] See Taper PO DIRECTED 12/11/21 [History] Pantoprazole [Protonix] 40 mg PO DAILY 30 Days #30 tab 12/16/21 [Rx] Follow up Appointment(s)/Referral(s): Mazin Kumar MD [Primary Care Provider] - 12/21/21 8:10 am Nile Kellogg DO [STAFF PHYSICIAN] - 12/23/21 2:45 pm Jorge Arredondo MD [STAFF PHYSICIAN] - 12/21/21 3:15 pm Ambulatory/Diagnostic Orders: Complete Blood Count w/diff [LAB.AMB] Location: None Selected Patient Instructions/Handouts: Pantoprazole (By mouth), Diverticulosis (DC), Complete Blood Count (GEN) Activity/Diet/Wound Care/Special Instructions: Activity Limited until follow-up Follow-up with primary care provider on discharge Follow-up with cardiology in one week Follow-up with general surgery in one week Continue taking medications as prescribed Continue holding Eliquis until discussing with cardiology Continue current diet Recommend repeat labs in 2-3 days Discharge Disposition: HOME SELF-CARE
== END 2021-12-16 14:47 | disposition home or self-care (01) | DRG 378 ==
LOC: EC 13:42 → 5NMEDONC 15:57 → OBSVTOIN 12-13 13:34
PROVIDERS: ADMIT Internal Medicine; ATTEND Internal Medicine
PROC: 0DBF8ZX Excision of Right Large Intestine, Via Natural or Artificial Opening Endoscopic, Diagnostic (ICD-10-PCS; principal; 2021-12-16 09:05)
PROC: 0DB78ZX Excision of Stomach, Pylorus, Via Natural or Artificial Opening Endoscopic, Diagnostic (ICD-10-PCS; 2021-12-16 09:05)
DX: K57.31 Diverticulosis of large intestine without perforation or abscess with bleeding (principal); D62 Acute posthemorrhagic anemia; I48.19 Other persistent atrial fibrillation; E87.0 Hyperosmolality and hypernatremia; I42.9 Cardiomyopathy, unspecified; I48.92 Unspecified atrial flutter; I12.9 Hypertensive chronic kidney disease with stage 1 through stage 4 chronic kidney disease, or unspecified chronic kidney disease; I49.3 Ventricular premature depolarization; K44.9 Diaphragmatic hernia without obstruction or gangrene; K31.7 Polyp of stomach and duodenum; K63.5 Polyp of colon; N18.9 Chronic kidney disease, unspecified; R55 Syncope and collapse; E78.5 Hyperlipidemia, unspecified; Z79.01 Long term (current) use of anticoagulants; M81.0 Age-related osteoporosis without current pathological fracture; F41.9 Anxiety disorder, unspecified; I25.10 Atherosclerotic heart disease of native coronary artery without angina pectoris; K29.70 Gastritis, unspecified, without bleeding; S70.02XA Contusion of left hip, initial encounter; S70.12XA Contusion of left thigh, initial encounter; W01.0XXA Fall on same level from slipping, tripping and stumbling without subsequent striking against object, initial encounter; Z79.1 Long term (current) use of non-steroidal anti-inflammatories (NSAID); Z79.899 Other long term (current) drug therapy; Z81.8 Family history of other mental and behavioral disorders; Z82.49 Family history of ischemic heart disease and other diseases of the circulatory system; Z83.3 Family history of diabetes mellitus; Z90.710 Acquired absence of both cervix and uterus; Z90.49 Acquired absence of other specified parts of digestive tract; Z95.5 Presence of coronary angioplasty implant and graft; Z88.1 Allergy status to other antibiotic agents
CPT/HCPCS: 36415; 43239; 45380; 71046; 74176; 80048; 80053; 81001; 82272; 83880; 84484; 85025; 85027; 85610; 85730; 93005; 96374; 96375; 99285

== ENCOUNTER → 2021-12-18 | Outpatient (CLI) | payer MEDICARE, BC ==
[2021-12-18 16:04] LABS: Basophils # (A) 0.05 X 10*3/uL (0.00-0.10); Basophils % (A) 0.6 %; Eosinophils # (A) 0.25 X 10*3/uL (0.04-0.35); Eosinophils % (A) 2.9 %; HCT 26.5 % (37.2-46.3); HGB 7.9 g/dL (12.0-15.0); Immature Grans, Automated 0.6 %; Lymphocytes # (A) 1.43 X 10*3/uL (0.90-5.00); Lymphocytes % (A) 16.6 %; MCH 29.7 pg (27.0-32.0); MCHC 29.8 g/dL (32.0-37.0); MCV 99.6 fL (80.0-97.0); Mean Platelet Volume 11.7 fL (9.5-12.2); Monocytes # (A) 0.68 X 10*3/uL (0.20-1.00); Monocytes % (A) 7.9 %; NRBC Per 100 WBC 0 /100 WBCS (0.0-0.0); Neutrophils # (A) 6.16 X 10*3/uL (1.80-7.70); Neutrophils % (A) 71.4 %; Platelet Count 242 X 10*3/uL (140-440); RBC 2.66 X 10*6/uL (4.10-5.20); RDW 20.9 % (11.5-14.5); WBC 8.62 X 10*3/uL (4.50-10.00)
== END | disposition home or self-care (01) ==
LOC: LABWHC1 09:50
PROVIDERS: ATTEND Registered Nurse
DX: D64.9 Anemia, unspecified (principal)
CPT/HCPCS: 36415; 85025

== ENCOUNTER → 2022-01-08 | Outpatient (CLI) | payer MEDICARE, BC ==
[2022-01-08 12:15] LABS: Basophils % (A) 1.1 %; Eosinophils # (A) 0.29 X 10*3/uL (0.04-0.35); Eosinophils % (A) 3.3 %; HCT 35.8 % (37.2-46.3); HGB 10.1 g/dL (12.0-15.0); Immature Grans, Automated 0.6 %; Lymphocytes # (A) 1.56 X 10*3/uL (0.90-5.00); Lymphocytes % (A) 17.6 %; MCH 29.2 pg (27.0-32.0); MCHC 28.2 g/dL (32.0-37.0); MCV 103.5 fL (80.0-97.0); Mean Platelet Volume 11.8 fL (9.5-12.2); Monocytes # (A) 0.63 X 10*3/uL (0.20-1.00); Monocytes % (A) 7.1 %; NRBC Per 100 WBC 0 /100 WBCS (0.0-0.0); Neutrophils # (A) 6.23 X 10*3/uL (1.80-7.70); Neutrophils % (A) 70.3 %; Platelet Count 259 X 10*3/uL (140-440); RBC 3.46 X 10*6/uL (4.10-5.20); RDW 19.4 % (11.5-14.5); WBC 8.86 X 10*3/uL (4.50-10.00)
[2022-01-08 13:26] LABS: % Iron Saturation 8.75 (12.00-45.00); African American GFR (CKD) 61.2 (60.0-200.0); Albumin 4.1 g/dL (3.8-4.9); Albumin/Globulin Ratio 1.46 (1.60-3.17); Anion Gap 11.4 mmol/L (10.00-18.00); BUN/Creat Ratio 19.6 Ratio (12.00-20.00); Blood Urea Nitrogen 19.6 mg/dL (9.0-27.0); Carbon Dioxide 24.6 mmol/L (20.0-27.5); Globulin 2.8 g/dL (1.6-3.3); Non-African American GFR(CKD) 52.8 (60.0-200.0); Potassium 4.1 mmol/L (3.5-5.5); Total Bilirubin 0.3 mg/dL (0.30-1.20); Total Protein 6.9 g/dL (6.2-8.2)
== END | disposition home or self-care (01) ==
LOC: LABWHC1 08:38
PROVIDERS: ATTEND Family Medicine
DX: D50.9 Iron deficiency anemia, unspecified (principal)
CPT/HCPCS: 36415; 80053; 83540; 83550; 85025

== ENCOUNTER 2022-01-09 16:23 | Inpatient (IN) | payer MEDICARE, BC ==
--- NOTE | 2022-01-09 16:56 | ED ---
General Adult HPI - General Chief complaint: Chest Pain Stated complaint: Chest Pain Time Seen by Provider: 01/09/22 16:24 Source: patient, EMS Mode of arrival: EMS Limitations: no limitations - History of Present Illness Initial comments: Patient is an 81-year-old female with past medical history remarkable for atrial fibrillation, GI bleed no longer on eliquis or blood thinning medication presents emergency Department complaining of a three-day history of worsening shortness of breath. She states she noticed it is somewhat worse when she lays down at night. It improves when she gets up and sits in a recliner. Worse with exertion. No worsening lower extremity edema. No PND. Denies chest pain. Denies abdominal pain, nausea, vomiting. Denies fevers, chills, cough. She was vaccinated for Covid as well as flu. Denies any further GI bleeding. Received labs yesterday which I can follow-up with in our computer system. Has no other acute complaints at this time. Presents for further evaluation. No history of blood clots. - Related Data Home Medications Medication Instructions Recorded Confirmed Calcium Carbonate/Vitamin D3 1 tab PO DAILY 08/11/16 01/09/22 [Calcium 600-Vit D3 400 Caplet] Cetirizine HCl [Zyrtec] 10 mg PO HS 08/11/16 01/09/22 Montelukast [Singulair] 10 mg PO HS 08/11/16 01/09/22 Simvastatin [Zocor] 40 mg PO HS 08/11/16 01/09/22 Acetaminophen/Diphenhydramine 1 tab PO HS 06/09/17 01/09/22 [Tylenol PM 500-25mg] Ascorbic Acid [Vitamin C] 1,000 mg PO DAILY 06/09/17 01/09/22 Multivit with Calcium,Iron,Min 1 tab PO DAILY 06/09/17 01/09/22 [Women's Multivitamin] Cholecalciferol [Vitamin D3 (25 50 mcg PO DAILY 05/04/21 01/09/22 Mcg = 1000 Iu)] Escitalopram [Lexapro] 10 mg PO DAILY 05/04/21 01/09/22 Mirabegron [Myrbetriq] 25 mg PO DAILY 05/04/21 01/09/22 Vit C/E/Zn/Coppr/Lutein/Zeaxan 1 cap PO BID 05/04/21 01/09/22 [Preservision Areds 2 Softgel] Metoprolol Succinate (ER) [Toprol 25 mg PO DAILY 11/18/21 01/09/22 XL] Amiodarone [Cordarone] 200 mg PO DAILY 12/11/21 01/09/22 Ferrous Sulfate [Iron] 325 mg PO TID 01/09/22 01/09/22 Furosemide [Lasix] 20 mg PO DAILY PRN 01/09/22 01/09/22 Previous Rx's Medication Instructions Recorded Pantoprazole [Protonix] 40 mg PO DAILY 30 Days #30 tab 12/16/21 Allergies Allergy/AdvReac Type Severity Reaction Status Date / Time cephalexin monohydrate Allergy Rash/Hives Verified 01/09/22 18:55 [From popchips] Review of Systems ROS Statement: Those systems with pertinent positive or pertinent negative responses have been documented in the HPI. Review of Systems: CONST: Denies fever EYES: Denies blurry vision ENT: Denies nasal congestion C/V: Denies Chest pain RESP: Endorses shortness of breath GI: Denies abdominal pain : Denies dysuria SKIN: Denies rash. MSK: Denies joint pain. NEURO: Denies headache ROS Other: All systems not noted in ROS Statement are negative. Past Medical History Past Medical History: Atrial Fibrillation, Hypertension Additional Past Medical History / Comment(s): OSTEOPOROSIS, "heart doesnt beat right" History of Any Multi-Drug Resistant Organisms: None Reported Past Surgical History: Adenoidectomy, Appendectomy, Back Surgery, Cholecystectomy, Heart Catheterization, Hysterectomy, Tonsillectomy Additional Past Surgical History / Comment(s): heart cath 10/2021, scheduled to have a cardiac ablation this upcoming monday12/17/21 Past Anesthesia/Blood Transfusion Reactions: No Reported Reaction Past Psychological History: Anxiety Smoking Status: Never smoker Past Alcohol Use History: None Reported Past Drug Use History: None Reported - Past Family History Father Family Medical History: Coronary Artery Disease (CAD) Additional Family Medical History / Comment(s): Alcohol Abuse. Mother Family Medical History: Coronary Artery Disease (CAD) Brother(s) Family Medical History: Coronary Artery Disease (CAD), Dementia Additional Family Medical History / Comment(s): ONE BROTHER - SELF CATH Sister(s) Family Medical History: Dementia, Diabetes Mellitus Additional Family Medical History / Comment(s): ONE SISTER - PARANOID SCHIZOPHRENIA. Daughter(s) Family Medical History: Deep Vein Thrombosis (DVT), Pulmonary Embolus General Exam - General Exam Comments Initial Comments: General: Appears in no acute distress. HEAD: Normal with no signs of head trauma. EYES: PERRLA, EOMI, conjunctiva normal, no discharge. ENT: Hearing grossly intact, normal oropharynx. RESPIRATORY: Clear breath sounds bilaterally. No wheezes, rales, or rhonchi. No hypoxia at rest, no increased work of breathing at rest. C/V: irregular rate and rhythm. S1 and S2 auscultated, 1+ pitting edema that is symmetrical in bilateral lower extremities, peripheral pulses 2+ and intact throughout ABD: Abd is soft, nontender, nondistended.Rectal exam was performed in the presence of a female staff member. Good rectal tone. No gross blood. EXT: Normal range of motion, no obvious deformity SKIN: No rashes or lesions observed on exposed skin. NEURO: Alert and oriented 4. No focal deficits. Limitations: no limitations Course Vital Signs 01/09/22 01/09/22 01/09/22 16:24 16:30 20:23 Temperature 98.2 F Pulse Rate 113 H 90 Respiratory 18 18 16 Rate Blood Pressure 153/102 154/106 O2 Sat by Pulse 97 98 Oximetry Medical Decision Making - Medical Decision Making Based on the patient's presentation physical exam, I'm concerned for potential cardio pulmonary etiology for her current symptoms. We'll obtain a cardiac workup as well as d-dimer, BNP. Blood work from yesterday shows improvement in her anemia with a hemoglobin of 10.1. No worsening bleeding. Vital signs within normal limits. We will complete an ambulate expiratory pulse ox. Patient has objective tachypnea upon ambulation with no change in oxygen saturations. Remains 97% on room air. EKG shows no acute changes. No signs of acute ischemia. EKG showed atrial fibrillation without signs of acute ischemia. Chest x-ray reveals pulmonary vascular congestion. There were trace studies were remarkable for a macrocytic anemia with a hemoglobin of 10.1, which is improved from last month and stable from yesterday. Patient also has a elevated d-dimer of 2.04. Troponin is undetectable. BNP is elevated to 12,000. Occult blood is negative. I did discuss with her that due to the elevated d-dimer would like to obtain a CTPE. She was in agreement this plan. CTPE was positive for multiple small pulmonary emboli in the right lung lower lobe. Discussion with radiology showed no signs of right heart strain. Echo will be ordered. I did discuss this with the patient. I consulted and spoke with cardiology Dr. Moody who is product operations associate for [facility]. Patient does have a history of GI bleed but it is not actively bleeding. We both agree that is best to start the patient on heparin at this time. She'll also be given an aspirin. I spoke with the patient and updated her. She was in agreement this plan. Patient will be admitted for further monitoring to telemetry bed. I spoke with the admitting team, TOBI Valdez of [facility] who accepted the patient. Patient was admitted in stable condition. Patient also be treated for her heart failure exacerbation with Lasix 40 mg twice a day. Echo is pending at this time. Vital signs remained within normal limits. Patient remains normoxic. - Lab Data Result diagrams: 01/09/22 16:50 01/09/22 16:50 Lab Results 01/09/22 01/09/22 01/09/22 Range/Units 16:50 16:50 16:50 WBC 7.4 (3.8-10.6) k/uL RBC 3.30 L (3.80-5.40) m/uL Hgb 10.1 L (11.4-16.0) gm/dL Hct 33.5 L (34.0-46.0) % MCV 101.5 H (80.0-100.0) fL MCH 30.6 (25.0-35.0) pg MCHC 30.2 L (31.0-37.0) g/dL RDW 18.1 H (11.5-15.5) % Plt Count 226 (150-450) k/uL MPV 9.2 Neutrophils % 69 % Lymphocytes % 19 % Monocytes % 6 % Eosinophils % 4 % Basophils % 1 % Neutrophils # 5.1 (1.3-7.7) k/uL Lymphocytes # 1.4 (1.0-4.8) k/uL Monocytes # 0.5 (0-1.0) k/uL Eosinophils # 0.3 (0-0.7) k/uL Basophils # 0.1 (0-0.2) k/uL Hypochromasia Marked Anisocytosis Slight Macrocytosis Moderate PT 11.6 (9.0-12.0) sec INR 1.1 (<1.2) APTT 22.4 (22.0-30.0) sec D-Dimer 2.04 H (<0.60) mg/L FEU Sodium 143 (137-145) mmol/L Potassium 3.7 (3.5-5.1) mmol/L Chloride 113 H (98-107) mmol/L Carbon Dioxide 24 (22-30) mmol/L Anion Gap 6 mmol/L BUN 18 H (7-17) mg/dL Creatinine 0.83 (0.52-1.04) mg/dL Est GFR (CKD-EPI)AfAm 77 (>60 ml/min/1.73 sqM) Est GFR (CKD-EPI)NonAf 67 (>60 ml/min/1.73 sqM) Glucose 99 (74-99) mg/dL Calcium 8.5 (8.4-10.2) mg/dL Magnesium 1.9 (1.6-2.3) mg/dL Total Bilirubin 0.3 (0.2-1.3) mg/dL AST 49 H (14-36) U/L ALT 44 H (4-34) U/L Alkaline Phosphatase 90 (38-126) U/L Troponin I (0.000-0.034) ng/mL NT-Pro-B Natriuret Pep pg/mL Total Protein 6.1 L (6.3-8.2) g/dL Albumin 3.5 (3.5-5.0) g/dL 01/09/22 01/09/22 Range/Units 16:50 16:50 WBC (3.8-10.6) k/uL RBC (3.80-5.40) m/uL Hgb (11.4-16.0) gm/dL Hct (34.0-46.0) % MCV (80.0-100.0) fL MCH (25.0-35.0) pg MCHC (31.0-37.0) g/dL RDW (11.5-15.5) % Plt Count (150-450) k/uL MPV Neutrophils % % Lymphocytes % % Monocytes % % Eosinophils % % Basophils % % Neutrophils # (1.3-7.7) k/uL Lymphocytes # (1.0-4.8) k/uL Monocytes # (0-1.0) k/uL Eosinophils # (0-0.7) k/uL Basophils # (0-0.2) k/uL Hypochromasia Anisocytosis Macrocytosis PT (9.0-12.0) sec INR (<1.2) APTT (22.0-30.0) sec D-Dimer (<0.60) mg/L FEU Sodium (137-145) mmol/L Potassium (3.5-5.1) mmol/L Chloride (98-107) mmol/L Carbon Dioxide (22-30) mmol/L Anion Gap mmol/L BUN (7-17) mg/dL Creatinine (0.52-1.04) mg/dL Est GFR (CKD-EPI)AfAm (>60 ml/min/1.73 sqM) Est GFR (CKD-EPI)NonAf (>60 ml/min/1.73 sqM) Glucose (74-99) mg/dL Calcium (8.4-10.2) mg/dL Magnesium (1.6-2.3) mg/dL Total Bilirubin (0.2-1.3) mg/dL AST (14-36) U/L ALT (4-34) U/L Alkaline Phosphatase (38-126) U/L Troponin I <0.012 (0.000-0.034) ng/mL NT-Pro-B Natriuret Pep 62850 pg/mL Total Protein (6.3-8.2) g/dL Albumin (3.5-5.0) g/dL - EKG Data -: EKG Interpreted by Me EKG Comments: 12-lead Electrocardiogram Interpretation Note EKG was reviewed and interpreted by myself. 12-lead ECG performed at 1623 is interpreted by me as revealing atrial fibrillation at a rate of 102 beats per minute. Right axis deviation. WA interval is unobtainable, QRS durations 108 ms, QTc is 442 ms.. There were no acute ST or T wave abnormalities to suggest myocardial ischemia or injury. There are chronic T-wave inversion seen in room III, lateral precordial leads. Similar to prior EKG from November 2021. R wave progression across the precordium was satisfactory. By my interpretation this EKG is non-diagnostic for acute ischemia. EKG unchanged from prior EKG in November 2021. Critical Care Time Critical Care Time: Yes Total Critical Care Time: 35 Critical Care Time: Upon my evaluation, this patient had a high probability of imminent or life-threatening deterioration due to heparin initiation for PE, heart failure exacerbation, which required my direct attention, intervention, and personal management. I have personally provided 35 minutes of critical care time exclusive of time spent on separately billable procedures. Time includes review of laboratory data, radiology results, discussion with consultants, and monitoring for potential decompensation. Interventions were performed as documented in my note. Disposition Clinical Impression: Pulmonary embolism, Heart failure, Pleural effusion, CHF (congestive heart failure), History of atrial fibrillation, Anemia Disposition: ADMITTED IP TO THIS HOSP Condition: Stable Time of Disposition: 18:40
[2022-01-09 17:00] LABS: Anisocytosis Slight; Basophils # (A) 0.1 k/uL (0-0.2); Basophils % (A) 1 %; Eosinophils # (A) 0.3 k/uL (0-0.7); Eosinophils % (A) 4 %; HCT 33.5 % (34.0-46.0); HGB 10.1 gm/dL (11.4-16.0); Hypochromasia Marked; Lymphocytes # (A) 1.4 k/uL (1.0-4.8); Lymphocytes % (A) 19 %; MCH 30.6 pg (25.0-35.0); MCHC 30.2 g/dL (31.0-37.0); MCV 101.5 fL (80.0-100.0); Macrocytosis Moderate; Mean Platelet Volume 9.2; Monocytes # (A) 0.5 k/uL (0-1.0); Monocytes % (A) 6 %; Neutrophils # (A) 5.1 k/uL (1.3-7.7); Neutrophils % (A) 69 %; Platelet Count 226 k/uL (150-450); RDW 18.1 % (11.5-15.5); WBC 7.4 k/uL (3.8-10.6)
[2022-01-09 17:11] LABS: Albumin 3.5 g/dL (3.5-5.0); Calcium 8.5 mg/dL (8.4-10.2); Magnesium 1.9 mg/dL (1.6-2.3); Potassium 3.7 mmol/L (3.5-5.1); Total Bilirubin 0.3 mg/dL (0.2-1.3); Total Protein 6.1 g/dL (6.3-8.2)
--- NOTE | 2022-01-09 17:12 | XR ---
EXAMINATION TYPE: XR chest 2V DATE OF EXAM: 01/09/2022 COMPARISON: 12/11/2021 HISTORY: Chest pain TECHNIQUE: 2 views FINDINGS: There is some blunting of the costophrenic angles. Heart size is top normal. There is mild pulmonary congestion. There are no hilar masses. IMPRESSION: Small pleural effusions. Mild pulmonary congestion. There is likely some mild congestive heart failure which is a change compared to recent exam.
[2022-01-09 17:20] LABS: INR 1.1 (<1.2); Partial Thromboplastin Time 22.4 sec (22.0-30.0); Prothrombin Time 11.6 sec (9.0-12.0)
--- NOTE | 2022-01-09 18:33 | CT ---
EXAMINATION TYPE: CT chest angio for PE DATE OF EXAM: 01/09/2022 COMPARISON: None HISTORY: Elevated d-dimer, SOB hx afib CT DLP: 217.5 mGycm Automated exposure control for dose reduction was used. CONTRAST: Performed with IV Contrast, patient injected with 100 mL of Isovue 370. Images obtained from the thoracic inlet to the diaphragm with IV contrast. There are Three-D postproc essed images. There is a mild to moderate right pleural effusion. Heart is enlarged. No pericardial effusion. There is some infiltrate and atelectasis right lower lobe. There is coarse interstitial density in the carrie g saul. Mild interstitial infiltrate and pleural fluid left lung base. There is contrast reflux into the inferior vena cava suggestive of heart failure. There appears to be filling defect in small branches of the right lower lobe pulmonary artery adjacen t to the pleural fluid. This is seen in the posterior basal segment branch. The thoracic spine is intact. There is degenerative spur formation. No compression fracture. Sternum is intact. IMPRESSION: There is evidence for multiple tiny emboli in the right lower lobe pulmonary artery in the posterior basal segment branch. Congestive heart failure with pleural effusions. Exam was discussed with emergency room attending staff at 6:30 PM
[2022-01-09] MEDS ORDERED: FUROSEMIDE 10 MG/ML 4 ML VIAL IV STA (18:43)
[2022-01-09] MEDS ORDERED: HEPARIN SODIUM 1,000 UN/ML (10ML VL) IV ONE (18:44)
[2022-01-09] MEDS ORDERED: HEPARIN SODIUM 1,000 UN/ML (10ML VL) IV PRN (18:44)
[2022-01-09] MEDS ORDERED: ASPIRIN 81 MG PO STA (18:44)
[2022-01-09] MEDS ORDERED: HEPARIN SOD,PORK IN 0.45% NACL 25,000 UNIT in 0.45% NACL 1 250ML.BAG IV SCH (18:45)
[2022-01-09] MEDS ORDERED: NALOXONE 0.4 MG/ML 1 ML VIAL IV PRN (19:27)
[2022-01-09] MEDS: FUROSEMIDE 10 MG/ML 4 ML VIAL IV SCH (21:02)
[2022-01-09] MEDS: ATORVASTATIN 20 MG TAB PO SCH (21:13)
[2022-01-10] MEDS ORDERED: MELATONIN 5 MG TABLET PO PRN (01:59)
[2022-01-10 08:11] LABS: Anisocytosis Slight; Basophils # (A) 0.1 k/uL (0-0.2); Basophils % (A) 1 %; Eosinophils # (A) 0.3 k/uL (0-0.7); Eosinophils % (A) 4 %; HCT 37.2 % (34.0-46.0); HGB 11.3 gm/dL (11.4-16.0); Hypochromasia Marked; Lymphocytes # (A) 1.6 k/uL (1.0-4.8); Lymphocytes % (A) 22 %; MCH 30.7 pg (25.0-35.0); MCHC 30.4 g/dL (31.0-37.0); MCV 100.8 fL (80.0-100.0); Macrocytosis Moderate; Mean Platelet Volume 8.7; Monocytes # (A) 0.5 k/uL (0-1.0); Monocytes % (A) 6 %; Neutrophils # (A) 4.9 k/uL (1.3-7.7); Neutrophils % (A) 67 %; Platelet Count 256 k/uL (150-450); RBC 3.69 m/uL (3.80-5.40); RDW 17.9 % (11.5-15.5); WBC 7.4 k/uL (3.8-10.6)
[2022-01-10] MEDS ORDERED: AMIODARONE 200 MG TAB PO SCH (09:00)
[2022-01-10] MEDS ORDERED: METOPROLOL SUCCINATE (ER) 25 MG TAB.ER.24H PO SCH (09:00)
[2022-01-10 09:06] LABS: Potassium 3.8 mmol/L (3.5-5.1)
[2022-01-10] MEDS: ESCITALOPRAM 10 MG TAB PO SCH (09:31)
[2022-01-10] MEDS: PANTOPRAZOLE 40 MG TABLET PO SCH (09:31)
[2022-01-10] MEDS: FUROSEMIDE 10 MG/ML 4 ML VIAL IV SCH (09:33)
--- NOTE | 2022-01-10 10:41 | CA ---
Transthoracic Echo Report Name: Anita Benton Age: 81 Gender: F : 1940 Exam Date: 01/10/2022 08:14 Exam Location: [facility] Ht (in): 61 Wt (lb): 135 Ordering Physician: Chencho Lamb MD Attending/Referring Phys: Senior Net Programmer Jayne Reyna RDCS Procedure CPT: Indications: right sided PE, eval for right heart strain Cardiac Hx: Afib,cath,htn,chol. Technical Quality: Good Contrast 1: Total Dose (mL): Contrast 2: Total Dose (mL): MEASUREMENTS (Male / Female) Normal Values 2D ECHO LV Diastolic Diameter PLAX 3.3 cm 4.2 - 5.9 / 3.9 - 5.3 cm LV Systolic Diameter PLAX 2.6 cm IVS Diastolic Thickness 1.3 cm 0.6 - 1.0 / 0.6 - 0.9 cm LVPW Diastolic Thickness 1.4 cm 0.6 - 1.0 / 0.6 - 0.9 cm LV Relative Wall Thickness 0.8 RV Internal Dim ED PLAX 3.3 cm LV Diastolic Volume MOD 4C 72.2 cm??? LV Systolic Volume MOD 4C 33.6 cm??? LV Ejection Fraction MOD 4C 53.4 % LV Diastolic Length 4C 7.6 cm LV Systolic Length 4C 6.5 cm LA Volume 64.2 cm??? 18 - 58 / 22 - 52 cm??? M-MODE Aortic Root Diameter MM 2.8 cm LA Systolic Diameter MM 4.5 cm LA Ao Ratio MM 1.6 MV E Point Septal Separation 1.0 cm AV Cusp Separation MM 1.7 cm DOPPLER AV Peak Velocity 109.4 cm/s AV Peak Gradient 4.8 mmHg MR Peak Velocity 604.6 cm/s MR Peak Gradient 146.2 mmHg TR Peak Velocity 356.3 cm/s TR Peak Gradient 50.8 mmHg Right Ventricular Systolic Press 51.7 mmHg FINDINGS Left Ventricle Mild increased LV wall thickness. left ventricular ejection fraction is estimated at 55-60 %. Left ventricular cavity size normal. Right Ventricle Mildly dialated. Severe PHTN. No RV strain TAPSE 17.1 mm. Right Atrium Normal right atrial size. Left Atrium Moderately increased left atrial volume. Mitral Valve Mitral valve thickened. Moderate mitral regurgitation. Aortic Valve Structurally normal aortic valve without significant sclerosis or stenosis. There is no aortic regurgitation. Tricuspid Valve Structurally normal tricuspid valve without significant stenosis. Severe tricuspid regurgitation. Pulmonic Valve Structurally normal pulmonic valve without significant stenosis. There is no pulmonic regurgitation. Pericardium Normal pericardium without effusion. Aorta Normal aortic root dimension. CONCLUSIONS Mild LVH Left ventricular EF 55-60% RVSP 51.7 Mildly dilated right ventricle with normal right ventricular systolic function Moderate mitral regurgitation Severe tricuspid regurgitation No pericardial effusion Previewed by: Dr. Nile Kellogg DO (Electronically Signed) Final Date: 10 January 2022 10:40
--- NOTE | 2022-01-10 11:42 | P.HPIM ---
History of Present Illness Patient pleasant 81-year-old female came in with complaints of shortness of breath had a CT of the chest found to have multiple bilateral pulmonary edema likely. Patient used to be on Eliquis this was discontinued about a week ago b ecause of a big bruise fall and GI bleed. Patient was supposed to started back prednisone. Patient is also found to be in congestive heart failure with pulmonary edema.. Chest x-ray and CT angina showed pulmonary edema patient doesn't have any significant the edema at this time patient was given IV Lasix subsequently was switched to oral. Patient has chronic atrial fibrillation. AST and ALP are minimally elevated secondary to hepatic congestion. Patient doesn't have any fever chills. Patient also has a moderate pulmonary hypertension. Cardiology evaluated the patient. REVIEW OF SYSTEMS: CONSTITUTIONAL: No fever, no malaise, no fatigue. HEENT: No recent visual problems or hearing problems. Denied any sore throat. CARDIOVASCULAR: No chest pain, no palpitations, no syncope. PULMONARY: no cough, no hemoptysis. GASTROINTESTINAL: No diarrhea, no nausea, no vomiting, no abdominal pain. NEUROLOGICAL: No headaches, no weakness, no numbness. HEMATOLOGICAL: Denies any bleeding or petechiae. GENITOURINARY: Denies any burning micturition, frequency, or urgency. MUSCULOSKELETAL/RHEUMATOLOGICAL: Denies any joint pain, swelling, or any muscle pain. ENDOCRINE: Denies any polyuria or polydipsia. The rest of the 14-point review of systems is negative. PHYSICAL EXAMINATION: GENERAL: The patient is alert and oriented x3, not in any acute distress. Well developed, well nourished. HEENT: Pupils are round and equally reacting to light. EOMI. No scleral icterus. No conjunctival pallor. Normocephalic, atraumatic. No pharyngeal erythema. No thyromegaly. CARDIOVASCULAR: S1 and S2 present. No murmurs, rubs, or gallops. PULMONARY: Chest is clear to auscultation, no wheezing or crackles. ABDOMEN: Soft, nontender, nondistended, normoactive bowel sounds. No palpable organomegaly. MUSCULOSKELETAL: No joint swelling or deformity. EXTREMITIES: No cyanosis, clubbing, or pedal edema. NEUROLOGICAL: Gross neurological examination did not reveal any focal deficits. SKIN: No rashes. Assessment and plan -Shots of breath probably secondary to pulmonary embolism as well as a congestive heart failure chronic diastolic dysfunction with acute exacerbation. -Bilateral PE appears to have on Procrit PE patient will be resumed on Eliquis but at a lower dose of 5 mg twice a day considering her recent the issues with Eliquis. Patient does have pulmonary hypertension because of small PEs may not be a candidate for EKOS, patient was evaluated by cardiology for this. -Congestive heart failure chronic diastolic dysfunction with acute exacerbation, improved now present is fairly euvolemic was switched to oral Lasix -Elevated liver enzymes secondary to hepatic congestion -History of chronic A. fib presently rate controlled -Hypertension DVT prophylaxis: Will be started on Eliquis was on IV heparin Past Medical History Past Medical History: Atrial Fibrillation, Hypertension Additional Past Medical History / Comment(s): OSTEOPOROSIS, "heart doesnt beat right" History of Any Multi-Drug Resistant Organisms: None Reported Past Surgical History: Adenoidectomy, Appendectomy, Back Surgery, Cholecystectomy, Heart Catheterization, Hysterectomy, Tonsillectomy Additional Past Surgical History / Comment(s): heart cath 10/2021, scheduled to have a cardiac ablation this upcoming monday12/17/21 Past Anesthesia/Blood Transfusion Reactions: No Reported Reaction Past Psychological History: Anxiety Smoking Status: Never smoker Past Alcohol Use History: None Reported Past Drug Use History: None Reported - Past Family History Father Family Medical History: Coronary Artery Disease (CAD) Additional Family Medical History / Comment(s): Alcohol Abuse. Mother Family Medical History: Coronary Artery Disease (CAD) Brother(s) Family Medical History: Coronary Artery Disease (CAD), Dementia Additional Family Medical History / Comment(s): ONE BROTHER - SELF CATH Sister(s) Family Medical History: Dementia, Diabetes Mellitus Additional Family Medical History / Comment(s): ONE SISTER - PARANOID SCHIZOPHRENIA. Daughter(s) Family Medical History: Deep Vein Thrombosis (DVT), Pulmonary Embolus Medications and Allergies Home Medications Medication Instructions Recorded Confirmed Type Calcium Carbonate/Vitamin D3 1 tab PO DAILY 08/11/16 01/09/22 History [Calcium 600-Vit D3 400 Caplet] Cetirizine HCl [Zyrtec] 10 mg PO HS 08/11/16 01/09/22 History Montelukast [Singulair] 10 mg PO HS 08/11/16 01/09/22 History Simvastatin [Zocor] 40 mg PO HS 08/11/16 01/09/22 History Acetaminophen/Diphenhydramine 1 tab PO HS 06/09/17 01/09/22 History [Tylenol PM 500-25mg] Ascorbic Acid [Vitamin C] 1,000 mg PO DAILY 06/09/17 01/09/22 History Multivit with Calcium,Iron,Min 1 tab PO DAILY 06/09/17 01/09/22 History [Women's Multivitamin] Cholecalciferol [Vitamin D3 (25 50 mcg PO DAILY 05/04/21 01/09/22 History Mcg = 1000 Iu)] Escitalopram [Lexapro] 10 mg PO DAILY 05/04/21 01/09/22 History Mirabegron [Myrbetriq] 25 mg PO DAILY 05/04/21 01/09/22 History Vit C/E/Zn/Coppr/Lutein/Zeaxan 1 cap PO BID 05/04/21 01/09/22 History [Preservision Areds 2 Softgel] Metoprolol Succinate (ER) [Toprol 25 mg PO DAILY 11/18/21 01/09/22 History XL] Amiodarone [Cordarone] 200 mg PO DAILY 12/11/21 01/09/22 History Pantoprazole [Protonix] 40 mg PO DAILY 30 Days #30 tab 12/16/21 01/09/22 Rx Ferrous Sulfate [Iron] 325 mg PO TID 01/09/22 01/09/22 History Furosemide [Lasix] 20 mg PO DAILY PRN 01/09/22 01/09/22 History Allergies Allergy/AdvReac Type Severity Reaction Status Date / Time cephalexin monohydrate Allergy Rash/Hives Verified 01/09/22 18:55 [From Keflex] Physical Exam Vitals: Vital Signs Temp Pulse Pulse Resp BP BP Pulse Ox 01/10/22 09:17 97.4 F L 78 18 164/82 01/10/22 07:12 98.2 F 96 15 167/113 100 01/09/22 20:23 90 16 154/106 98 01/09/22 16:30 18 01/09/22 16:24 98.2 F 113 H 18 153/102 97 Intake and Output 01/09/22 01/10/22 01/10/22 22:59 06:59 14:59 Intake Total 59.151 240 Balance 59.151 240 Intake: Intake, IV Titration 59.151 Amount Heparin Sod,Pork in 0.45% 59.151 NaCl 25,000 unit In 0.45 % NaCl 1 250ml.bag @ 18 UNITS/KG/HR 11.022 mls/hr IV .[id number] [facility] Rx#: [id number] Oral 240 Other: Weight 61.235 kg Results CBC & Chem 7: 01/10/22 07:52 01/10/22 07:52 Labs: Abnormal Lab Results - Last 24 Hours (Table) 01/09/22 01/09/22 01/09/22 Range/Units 16:50 16:50 16:50 RBC 3.30 L (3.80-5.40) m/uL Hgb 10.1 L (11.4-16.0) gm/dL Hct 33.5 L (34.0-46.0) % MCV 101.5 H (80.0-100.0) fL MCHC 30.2 L (31.0-37.0) g/dL RDW 18.1 H (11.5-15.5) % APTT (22.0-30.0) sec D-Dimer 2.04 H (<0.60) mg/L FEU Chloride 113 H (98-107) mmol/L Carbon Dioxide (22-30) mmol/L BUN 18 H (7-17) mg/dL AST 49 H (14-36) U/L ALT 44 H (4-34) U/L Total Protein 6.1 L (6.3-8.2) g/dL 01/10/22 01/10/22 01/10/22 Range/Units 00:30 07:52 07:52 RBC 3.69 L (3.80-5.40) m/uL Hgb 11.3 L (11.4-16.0) gm/dL Hct (34.0-46.0) % MCV 100.8 H (80.0-100.0) fL MCHC 30.4 L (31.0-37.0) g/dL RDW 17.9 H (11.5-15.5) % APTT 153.2 H* (22.0-30.0) sec D-Dimer (<0.60) mg/L FEU Chloride 108 H (98-107) mmol/L Carbon Dioxide 31 H (22-30) mmol/L BUN 19 H (7-17) mg/dL AST (14-36) U/L ALT (4-34) U/L Total Protein (6.3-8.2) g/dL 01/10/22 Range/Units 07:52 RBC (3.80-5.40) m/uL Hgb (11.4-16.0) gm/dL Hct (34.0-46.0) % MCV (80.0-100.0) fL MCHC (31.0-37.0) g/dL RDW (11.5-15.5) % APTT 70.6 H (22.0-30.0) sec D-Dimer (<0.60) mg/L FEU Chloride (98-107) mmol/L Carbon Dioxide (22-30) mmol/L BUN (7-17) mg/dL AST (14-36) U/L ALT (4-34) U/L Total Protein (6.3-8.2) g/dL
[2022-01-10] MEDS: APIXABAN 5 MG TAB PO SCH ×2 (12:18→20:48)
--- NOTE | 2022-01-10 12:29 | P.CRDCN ---
History of Present Illness Consult date: 01/10/22 History of present illness: HISTORY OF PRESENT ILLNESS: This is a 81-year-old female with a past medical history significant for valvular heart disease, atrial fibrillation, cardiomyopathy, hypertension and recent anemia. Patient follows in the office with Dr. Kellogg. We have been asked to see the patient in consultation for PE, CHF, and atrial fibrillation. Patient examined at the bedside. Patient presented to the hospital with a chief complaint of palpitations and shortness of breath. * EKG reveals atrial fibrillation with a heart rate of 102 * Chest xray small pleural effusions. Mild pulmonary congestion. There is likely some mild congestive heart failure. * Chest CTA: Evidence for multiple tiny emboli in the right lower lobe pulmonary artery in the posterior basal segment branch. Congestive heart failure with pleural effusions. * Laboratory data: WBC 7.4. Hemoglobin 11.3. Platelet count 256. Sodium 144. Potassium 3.8. BUN 19. Creatinine 0.84. ProBNP 12,200. Troponin negative 3. * Current home cardiac medications include simvastatin 40 mg at night, metoprolol succinate 25 mg daily, Lasix 20 g daily as needed, amiodarone 200 mg daily * Echocardiogram obtained revealing mild LVH, ejection fraction 55-60%, mildly dilated right ventricle with no sign of RV strain, moderate MR, severe TR * Cardiac catheterization history: October 2021 revealing normal coronary arteries REVIEW OF SYSTEMS: At the time of my exam: CONSTITUTIONAL: Denies fever or chills. HEENT: Denies blurred vision, vision changes, or eye pain. Denies hemoptysis CARDIOVASCULAR: Denies chest pain. Denies orthopnea. Denies PND. Denies palpitations RESPIRATORY: Denies shortness of breath. GASTROINTESTINAL: Denies abdominal pain. Denies nausea or vomiting. HEMATOLOGIC: Denies bleeding disorders. GENITOURINARY: Denies any blood in urine. SKIN: Denies pruitis. Denies rash. PHYSICAL EXAM: VITAL SIGNS: Reviewed. GENERAL: Well-developed in no acute distress. HEENT: Head is normocephalic. Pupils are equal, round. Sclerae anicteric. Mucous membranes of the mouth are moist. Neck supple. No JVD or thyromegaly LUNGS: Respirations even and unlabored. Lungs essentially clear to auscultation bilaterally. HEART: Irregular rate and rhythm. S1 and S2 heard. ABDOMEN: Soft. Nondistended. Nontender. EXTREMITIES: Normal range of motion. No clubbing or cyanosis. Peripheral pulses intact. No lower extremity edema NEUROLOGIC: Awake and alert. Oriented x 3. ASSESSMENT: Acute right sided pulmonary emboli Persistent atrial fibrillation Mild exacerbation of chronic heart failure with pEF, improved, EF was 35-40%, now to 55-60%, currently euvolemic Recent diagnosis of anemia, s/p EGD and colonoscopy Valvular heart disease Hypertension History of nonischemic cardiomyopathy PLAN: 2D echo obtained and reviewed Increase metoprolol to 25 mg twice a day for optimal heart rate control Discontinue amiodarone Discontinue IV Lasix. Begin oral Lasix 40 mg daily Anticoagulation per primary medicine Further recommendations pending patient course Nurse practitioner note has been reviewed by physician. Signing provider agrees with the documented findings, assessment, and plan of care. Past Medical History Past Medical History: Atrial Fibrillation, Hypertension Additional Past Medical History / Comment(s): OSTEOPOROSIS, "heart doesnt beat right" History of Any Multi-Drug Resistant Organisms: None Reported Past Surgical History: Adenoidectomy, Appendectomy, Back Surgery, Cholecystectomy, Heart Catheterization, Hysterectomy, Tonsillectomy Additional Past Surgical History / Comment(s): heart cath 10/2021, scheduled to have a cardiac ablation this upcoming monday12/17/21 Past Anesthesia/Blood Transfusion Reactions: No Reported Reaction Past Psychological History: Anxiety Smoking Status: Never smoker Past Alcohol Use History: None Reported Past Drug Use History: None Reported - Past Family History Father Family Medical History: Coronary Artery Disease (CAD) Additional Family Medical History / Comment(s): Alcohol Abuse. Mother Family Medical History: Coronary Artery Disease (CAD) Brother(s) Family Medical History: Coronary Artery Disease (CAD), Dementia Additional Family Medical History / Comment(s): ONE BROTHER - SELF CATH Sister(s) Family Medical History: Dementia, Diabetes Mellitus Additional Family Medical History / Comment(s): ONE SISTER - PARANOID SCHIZOPHRENIA. Daughter(s) Family Medical History: Deep Vein Thrombosis (DVT), Pulmonary Embolus Medications and Allergies Home Medications Medication Instructions Recorded Confirmed Type Calcium Carbonate/Vitamin D3 1 tab PO DAILY 08/11/16 01/09/22 History [Calcium 600-Vit D3 400 Caplet] Cetirizine HCl [Zyrtec] 10 mg PO HS 08/11/16 01/09/22 History Montelukast [Singulair] 10 mg PO HS 08/11/16 01/09/22 History Simvastatin [Zocor] 40 mg PO HS 08/11/16 01/09/22 History Acetaminophen/Diphenhydramine 1 tab PO HS 06/09/17 01/09/22 History [Tylenol PM 500-25mg] Ascorbic Acid [Vitamin C] 1,000 mg PO DAILY 06/09/17 01/09/22 History Multivit with Calcium,Iron,Min 1 tab PO DAILY 06/09/17 01/09/22 History [Women's Multivitamin] Cholecalciferol [Vitamin D3 (25 50 mcg PO DAILY 05/04/21 01/09/22 History Mcg = 1000 Iu)] Escitalopram [Lexapro] 10 mg PO DAILY 05/04/21 01/09/22 History Mirabegron [Myrbetriq] 25 mg PO DAILY 05/04/21 01/09/22 History Vit C/E/Zn/Coppr/Lutein/Zeaxan 1 cap PO BID 05/04/21 01/09/22 History [Preservision Areds 2 Softgel] Metoprolol Succinate (ER) [Toprol 25 mg PO DAILY 11/18/21 01/09/22 History XL] Amiodarone [Cordarone] 200 mg PO DAILY 12/11/21 01/09/22 History Pantoprazole [Protonix] 40 mg PO DAILY 30 Days #30 tab 12/16/21 01/09/22 Rx Ferrous Sulfate [Iron] 325 mg PO TID 01/09/22 01/09/22 History Furosemide [Lasix] 20 mg PO DAILY PRN 01/09/22 01/09/22 History Allergies Allergy/AdvReac Type Severity Reaction Status Date / Time cephalexin monohydrate Allergy Rash/Hives Verified 01/09/22 18:55 [From Keflex] Physical Exam Vitals: Vital Signs Temp Pulse Pulse Resp BP BP Pulse Ox 01/10/22 09:17 97.4 F L 78 18 164/82 01/10/22 07:12 98.2 F 96 15 167/113 100 01/09/22 20:23 90 16 154/106 98 01/09/22 16:30 18 01/09/22 16:24 98.2 F 113 H 18 153/102 97 Intake and Output 07/17/22 07/18/22 07/18/22 22:59 06:59 14:59 Intake Total 59.151 240 Balance 59.151 240 Intake: Intake, IV Titration 59.151 Amount Heparin Sod,Pork in 0.45% 59.151 NaCl 25,000 unit In 0.45 % NaCl 1 250ml.bag @ 18 UNITS/KG/HR 11.022 mls/hr IV .[id number] [facility] Rx#: [id number] Oral 240 Other: Weight 61.235 kg Results 01/10/22 07:52 01/10/22 07:52 Cardiac Enzymes 01/09/22 01/09/22 01/09/22 Range/Units 16:50 16:50 19:57 AST 49 H (14-36) U/L Troponin I <0.012 0.020 (0.000-0.034) ng/mL 01/10/22 Range/Units 00:30 AST (14-36) U/L Troponin I <0.012 (0.000-0.034) ng/mL Coagulation 01/09/22 01/10/22 01/10/22 Range/Units 16:50 00:30 07:52 PT 11.6 (9.0-12.0) sec APTT 22.4 153.2 H* 70.6 H (22.0-30.0) sec CBC 01/09/22 01/10/22 Range/Units 16:50 07:52 WBC 7.4 7.4 (3.8-10.6) k/uL RBC 3.30 L 3.69 L (3.80-5.40) m/uL Hgb 10.1 L 11.3 L (11.4-16.0) gm/dL Hct 33.5 L 37.2 (34.0-46.0) % Plt Count 226 256 (150-450) k/uL Comprehensive Metabolic Panel 01/09/22 01/10/22 Range/Units 16:50 07:52 Sodium 143 144 (137-145) mmol/L Potassium 3.7 3.8 (3.5-5.1) mmol/L Chloride 113 H 108 H (98-107) mmol/L Carbon Dioxide 24 31 H (22-30) mmol/L BUN 18 H 19 H (7-17) mg/dL Creatinine 0.83 0.84 (0.52-1.04) mg/dL Glucose 99 91 (74-99) mg/dL Calcium 8.5 9.0 (8.4-10.2) mg/dL AST 49 H (14-36) U/L ALT 44 H (4-34) U/L Alkaline Phosphatase 90 (38-126) U/L Total Protein 6.1 L (6.3-8.2) g/dL Albumin 3.5 (3.5-5.0) g/dL Current Medications Generic Name Dose Route Start Last Admin Trade Name Freq PRN Reason Stop Dose Admin Apixaban 5 mg 01/10/22 11:45 Apixaban 5 Mg Tab PO BID [facility] Protocol Atorvastatin Calcium 20 mg 01/09/22 21:00 01/09/22 21:13 Atorvastatin 20 Mg Tab PO 20 mg HS NOHELIA Administration Escitalopram Oxalate 10 mg 01/10/22 09:00 01/10/22 09:31 Escitalopram 10 Mg Tab PO 10 mg DAILY NOHELIA Administration Furosemide 40 mg 01/11/22 09:00 Furosemide 40 Mg Tab PO DAILY NOHELIA Melatonin 5 mg 01/10/22 01:59 Melatonin 5 Mg Tablet PO DAILY PRN Insomnia Metoprolol Succinate 25 mg 01/10/22 21:00 Metoprolol Succinate (Er) 25 Mg Tab.Er.24h PO BID [facility] Naloxone HCl 0.2 mg 01/09/22 19:27 Naloxone 0.4 Mg/Ml 1 Ml Vial IV Q2M PRN Opioid Reversal Pantoprazole Sodium 40 mg 01/10/22 07:30 01/10/22 09:31 Pantoprazole 40 Mg Tablet PO 40 mg [id number] [facility] Administration Intake and Output 01/09/22 01/10/22 01/10/22 22:59 06:59 14:59 Intake Total 59.151 240 Balance 59.151 240 Intake: Intake, IV Titration 59.151 Amount Heparin Sod,Pork in 0.45% 59.151 NaCl 25,000 unit In 0.45 % NaCl 1 250ml.bag @ 18 UNITS/KG/HR 11.022 mls/hr IV .[id number] [facility] Rx#: [id number] Oral 240 Other: Weight 61.235 kg 01/10/22 07:52 01/10/22 07:52
[2022-01-10] MEDS: ATORVASTATIN 20 MG TAB PO SCH (20:48)
[2022-01-10] MEDS: METOPROLOL SUCCINATE (ER) 25 MG TAB.ER.24H PO SCH (20:48)
[2022-01-11] MEDS: PANTOPRAZOLE 40 MG TABLET PO SCH (06:32)
[2022-01-11 08:24] LABS: Anisocytosis Slight; HCT 36.1 % (34.0-46.0); HGB 11.2 gm/dL (11.4-16.0); Hypochromasia Marked; MCH 31.5 pg (25.0-35.0); MCHC 30.9 g/dL (31.0-37.0); MCV 102.1 fL (80.0-100.0); Macrocytosis Moderate; Mean Platelet Volume 8.6; Platelet Count 252 k/uL (150-450); RBC 3.54 m/uL (3.80-5.40); RDW 17.6 % (11.5-15.5); WBC 7.4 k/uL (3.8-10.6)
[2022-01-11 08:37] LABS: Calcium 8.8 mg/dL (8.4-10.2); Potassium 3.9 mmol/L (3.5-5.1)
[2022-01-11 08:44] VITALS: TEMP 98.5
[2022-01-11] MEDS: APIXABAN 5 MG TAB PO SCH (08:58)
[2022-01-11] MEDS: ESCITALOPRAM 10 MG TAB PO SCH (08:58)
[2022-01-11] MEDS: METOPROLOL SUCCINATE (ER) 25 MG TAB.ER.24H PO SCH ×2 (08:58→12:33)
[2022-01-11] MEDS ORDERED: FUROSEMIDE 40 MG TAB PO SCH (09:00)
--- NOTE | 2022-01-11 11:57 | P.PN ---
Progress Note - Text Patient is resting comfortably She is sitting up at the edge of the bed No respiratory distress No chest discomfort On examination blood pressure 152/64 and 176/76. His mercury pulse rate is in the 50s afebrile Heart sounds S1 and S2 are normal Breath sounds reduced bilaterally Impression Multiple tiny emboli in the right lower lobe pulmonary artery and the posterior basal segment Chest x-ray and computed tomography scan suggest congestion and heart failure 2-D echo shows left ventricular ejection fraction at 55-60% which is normal. Mild diastolic heart failure 2-D echo shows a mildly dilated right ventricle with severe pulmonary hypertension, right-sided heart failure predominantly Elevated blood pressure readings Normal coronary arteries with mildly elevated left-sided filling pressures, LVEDP 17 mmHg, aortic pressure 123/77 mmHg previously Persistent atrial fibrillation with minimally elevated rates Her anemia in November was related to blood loss secondary to an injury not a GI bleed. I was called on Monday by the ER physician looking for an opinion on the dose of heparin for this lady who presented with pulmonary embolism with absence of any CT evidence for strain The ER physician stated that there was no indication for EKOS but the reason he consulted cardiology was to ask what the dose of heparin to start since she has had a GI bleeding I replied that in the setting of acute pulmonary embolism, a pulmonary embolism protocol should take precedence However there is a surgical note from December 11 of this year The addendum is in bold letters and states that the patient had stools positive for occult blood and the likely reason for the patient's anemia was a left thigh and hip hematoma Endoscopy was negative for any GI source I questioned the patient regarding this and she said that she had a fall just before that Current hemoglobin 11.2 Hemoglobin on December 18 of this year was 7.9 when she had the large left thigh and hip hematoma I see no contraindication to long-term anticoagulation There is no evidence for acute GI bleeding in this patient She has RV enlargement and severe pulmonary hypertension even though she has chest multiple tiny pulmonary emboli in the right lower lobe of the pulmonary artery She is evidence of right-sided failure It is quite likely that she has recurrent pulmonary emboli and this was yet another acute event A single acute event is unlikely to account for severe pulmonary hypertension or RV enlargement especially if there are tiny multiple emboli While LVEDP is elevated and while her blood pressure is elevated also she has a right-sided failure secondary to pulmonary hypertension most likely related to recurrent pulmonary emboli I will start her on losartan 25 mg by mouth daily and maximize this over the next few days It would be prudent to consult pulmonary medicine to get their opinion regarding the presence of severe pulmonary hypertension, RV enlargement and a computed tomography scan that shows multiple tiny pulmonary emboli. I don't think this is a single isolated event of pulmonary embolism and a pulmonology input would be valuable In fact this should've been initiated from the ER on the day of admission
[2022-01-11 12:32] VITALS: BP 134/86; PULSE 63; RESP 16
== END 2022-01-11 15:16 | disposition home or self-care (01) | DRG 175 ==
LOC: EC 16:23 → 3SCARD 19:27
PROVIDERS: ADMIT Hospitalist; ATTEND Hospitalist
DX: I26.99 Other pulmonary embolism without acute cor pulmonale (principal); I50.33 Acute on chronic diastolic (congestive) heart failure; I42.8 Other cardiomyopathies; I48.19 Other persistent atrial fibrillation; I50.82 Biventricular heart failure; F41.9 Anxiety disorder, unspecified; I11.0 Hypertensive heart disease with heart failure; I27.29 Other secondary pulmonary hypertension; K76.1 Chronic passive congestion of liver; M81.0 Age-related osteoporosis without current pathological fracture; S70.02XA Contusion of left hip, initial encounter; S70.12XA Contusion of left thigh, initial encounter; W19.XXXA Unspecified fall, initial encounter; I08.1 Rheumatic disorders of both mitral and tricuspid valves; D64.9 Anemia, unspecified; Z79.899 Other long term (current) drug therapy; Z81.8 Family history of other mental and behavioral disorders; Z82.49 Family history of ischemic heart disease and other diseases of the circulatory system; Z83.3 Family history of diabetes mellitus; Z90.710 Acquired absence of both cervix and uterus; Z88.8 Allergy status to other drugs, medicaments and biological substances; Z90.49 Acquired absence of other specified parts of digestive tract
CPT/HCPCS: 36415; 71046; 71275; 80048; 80053; 82272; 82607; 83540; 83550; 83735; 83880; 84484; 85025; 85027; 85379; 85610; 85730; 93005; 93306; 96365; 96366; 96375; 96376; 99291

== ENCOUNTER → 2022-07-21 | Outpatient (CLI) | payer MEDICARE, BC ==
--- NOTE | 2022-07-21 21:03 | BD ---
EXAMINATION TYPE: Axial Bone Density DATE OF EXAM: 07/21/2022 COMPARISON: 05/13/2020 forearm, 01/31/2018 hips CLINICAL HISTORY: 82 years year old Female. ICD-10 CODE: Z78.0 ASYMPTOMATIC MENOPAUSAL STATE Height: 5 FT 2 IN Weight: 131 FRAX RISK QUESTIONS: Alcohol (3 or more units per day): NO Family History (Parent hip fracture): NO Glucocorticoids (More than 3mos): NO (Ex: prednisone, prednisolone, methylprednisolone, dexamethasone, and hydrocortisone). History of Fracture in Adulthood: NO Secondary Osteoporosis: 1. Type 1 Diabetes: NO 2. Hyperthyroidism: NO 3. Menopause before 45: YES 4. Malnutrition: NO 5. Chronic liver disease: NO Rheumatoid Arthritis: NO Current Tobacco Use: NO RISK FACTORS HISTORY OF: Surgery to Spine/Hip(right/left)/Wrist (right/left): LUMBAR SURG When: OVER 40 YEARS AGO Family History of Osteoporosis: NO Active: YES Diet low in dairy products/other sources of calcium: NO Postmenopausal woman: YES Take estrogen and/or progesterone medications: NONE NOW Lost more than 2 inches in height since high school: YES Frequent falls: NO Poor Health: GOOD Hyperparathyroidism: NO Adrenal Insufficiency: NO MEDICATIONS: Additional Medications: TITUS BEG YANET, SIMVASTATIN, PANTOPRAZOLE/ ,SINGULAR, LEXAPRO, ZYRTEC, AMIODARO NE, TOPROL, LASIX, ELIQUIS Additional History: EXAM MEASUREMENTS: Bone mineral density about the R hip (g/cm2): 0.652 Bone mineral density about the L hip (g/cm2): 0.722 T Score values are as follows: -----R Neck: -2.8 -----L Neck: -2.3 -----R Total: -3.0 -----L Total: -2.6 Bone mineral density has: DECREASED -4.8 % since study of: 2019 Bone mineral density about the L Wrist (g/cm2): 0.507 T Score values are as follows: -----Dist. R+U: -3.0 -----Prox. R+U: -2.3 -----Radius total: -2.8 Bone mineral density has: DECREASED -5.5 % since study of: 2019 FRAX%s: The graph provided illustrates a 41.3 % chance for a major osteoporotic fx and a 18.3 % chanc e for the hips probability for fx in 10 years time. IMPRESSION: Osteoporosis (T Score less than -2.5). There is increased fracture risk and therapy is usually indicated based on age. Re-Screen 1-2 years. NOTE: T-SCORE=SD OF THE YOUNG ADULT MEAN.
--- NOTE | 2022-07-22 09:02 | MM ---
Reason for Exam: Screening (asymptomatic). Last screening mammogram was performed 12 month(s) ago. Patient History: Menarche at age 14. First Full-Term at age 22. Left ovary removed at age 40. Right ovary removed at age 40. Hysterectomy at age 40. Postmenopausal. Patient has history of breast feeding. Estrogen for 5 years, 1 month. Risk Values: Darleen 5 year model risk: 1.3%. NCI Lifetime model risk: 1.7%. Prior Study Comparison: 04/02/2020 Bilateral Screening Mammogram, [facility]. 07/08/2021 Bilateral Screening Mammogram, [facility]. 07/15/2021 Left Diagnostic Mammogram, [facility]. Tissue Density: There are scattered fibroglandular densities. Findings: Analyzed By CAD. Pattern appears symmetrical and stable. No suspicious groups of microcalcifications, spiculated or lobular masses, architectural distortion or other secondary signs of malignancy are mammographically apparent. Overall Assessment: Benign, BI-RAD 2 Management: Screening Mammogram of both breasts in 1 year. A negative mammogram report should not preclude additional follow up of suspicious palpable abnormalities. Patient should continue monthly self breast exam. A clinical breast exam by your physician is recommended on an annual basis and results should be correlated with mammographic findings. Electronically signed and approved by: Ze Pelaez D.O. Radiologis
== END | disposition home or self-care (01) ==
LOC: RADMAMWWP 14:36
PROVIDERS: ATTEND Family Medicine
DX: Z12.31 Encounter for screening mammogram for malignant neoplasm of breast (principal); M81.0 Age-related osteoporosis without current pathological fracture; M85.89 Other specified disorders of bone density and structure, multiple sites; Z78.0 Asymptomatic menopausal state
CPT/HCPCS: 77063; 77067; 77080

== ENCOUNTER → 2022-12-08 | Outpatient (CLI) | payer MEDICARE, BC ==
[2022-12-08 11:44] LABS: ALT 22 U/L (8-44); AST 31 U/L (13-35); Chol/HDL Ratio 3.08 Ratio; T4, Free (Free Thyroxine) 1.91 ng/dL (0.80-1.80)
== END | disposition home or self-care (01) ==
LOC: LABWHC1 07:03
PROVIDERS: ATTEND Nurse Practitioner Acute Care
DX: I48.0 Paroxysmal atrial fibrillation (principal); E78.2 Mixed hyperlipidemia
CPT/HCPCS: 36415; 80061; 84439; 84443; 84450; 84460

== ENCOUNTER → 2023-02-17 | Outpatient (CLI) | payer MEDICARE, BC ==
[2023-02-18 01:29] LABS: Blood Urea Nitrogen 43.1 mg/dL (9.0-27.0); Carbon Dioxide 20.8 mmol/L (21.6-31.8); Chloride 111 mmol/L (96-109); Potassium 4.4 mmol/L (3.5-5.5); Sodium 143 mmol/L (135-145)
[2023-02-18 01:50] LABS: HCT 27.5 % (37.2-46.3); HGB 8.3 d/dL (12.0-15.0); MCH 32.5 pg (27.0-32.0); MCHC 30.2 d/dL (32.0-37.0); MCV 107.8 FL (80.0-97.0); Mean Platelet Volume 11.4 FL (9.5-12.2); NRBC Per 100 WBC 0 X 10*3/uL (0.00-0.01); Platelet Count 229 X 10*3/uL (140-440); RBC 2.55 X 10*6/uL (4.10-5.20); RDW 15.1 % (11.5-14.5); WBC 7.69 X 10*3/uL (4.50-10.00)
== END | disposition home or self-care (01) ==
LOC: LABPAT 11:20
PROVIDERS: ATTEND Internal Medicine
DX: Z01.812 Encounter for preprocedural laboratory examination (principal); I50.32 Chronic diastolic (congestive) heart failure; R06.02 Shortness of breath
CPT/HCPCS: 80051; 82565; 84520; 85027

== ENCOUNTER 2023-02-20 11:23 | Day surgery (SDC) | payer MEDICARE, BC ==
[2023-02-16 09:20] VITALS: BMI 22.8
[~2023-02-20 11:23] MED LIST changes: -ASPIRIN 325 MG TAB PO ONE; +ASPIRIN 325 MG TAB PO STA; -ATORVASTATIN 80 MG TAB PO ONE; +ATORVASTATIN 80 MG TAB PO STA; -HEPARIN SODIUM 1,000 UN/ML (10ML VL) IV ONE; -HEPARIN SODIUM 1,000 UN/ML (10ML VL) ONE; +HEPARIN SODIUM,PORCINE (1 ML) 2,500 UNIT in SODIUM CHLORIDE 0.9% 250 ML IRRIGATION PRN; -HEPARIN SODIUM,PORCINE 2,500 UNIT in SODIUM CHLORIDE 0.9% 250 ML IRRIGATION PRN; -IOPAMIDOL-370 125ML BTL INJ ONE; -LIDOCAINE 1% PF 10 MG/ML (5 ML AMP) SQ ONE; -MIDAZOLAM 2 MG/2 ML VIAL IV ONE; -SODIUM CHLORIDE 0.9% 1,000 ML in EMPTY BAG 1 BAG IV ONE; +SODIUM CHLORIDE 0.9% 1,000 ML in EMPTY BAG 1 BAG IV SCH; -VERAPAMIL 2.5 MG/ML 2 ML AMP ONE; -VERAPAMIL SYRINGE (5 MG/10 ML) INTRAARTER ONE; -fentaNYL (PF) 50 MCG/ML 2 ML AMP IV ONE; -fentaNYL (PF) 50 MCG/ML 2 ML AMP ONE
[2023-02-20] MEDS ORDERED: SODIUM CHLORIDE 0.9% 1,000 ML IV ONE (11:37)
[2023-02-20 12:01] VITALS: TEMP 98.3
[2023-02-20 12:14] LABS: Basophils % (A) 0 %; Eosinophils # (A) 0.2 k/uL (0-0.7); Eosinophils % (A) 3 %; HCT 29.1 % (34.0-46.0); HGB 9.3 gm/dL (11.4-16.0); Hypochromasia Slight; Lymphocytes # (A) 1.1 k/uL (1.0-4.8); Lymphocytes % (A) 15 %; MCH 32.8 pg (25.0-35.0); MCHC 32.1 g/dL (31.0-37.0); MCV 102.4 fL (80.0-100.0); Macrocytosis Slight; Mean Platelet Volume 8.3; Monocytes # (A) 0.4 k/uL (0-1.0); Monocytes % (A) 5 %; Neutrophils # (A) 5.4 k/uL (1.3-7.7); Neutrophils % (A) 75 %; Platelet Count 262 k/uL (150-450); RBC 2.84 m/uL (3.80-5.40); RDW 14.6 % (11.5-15.5); WBC 7.1 k/uL (3.8-10.6)
[2023-02-20] MEDS ORDERED: VERAPAMIL 2.5 MG/ML 2 ML AMP ONE (12:31)
[2023-02-20 13:02] LABS: African American GFR (CKD) 61 (>60 ml/min/1.73 sqM); Anion Gap 7 mmol/L; Blood Urea Nitrogen 39 mg/dL (7-17); Calcium 8.7 mg/dL (8.4-10.2); Carbon Dioxide 23 mmol/L (22-30); Chloride 110 mmol/L (98-107); Glucose 90 mg/dL (74-99); Non-African American GFR(CKD) 53 (>60 ml/min/1.73 sqM); Potassium 4.4 mmol/L (3.5-5.1); Sodium 140 mmol/L (137-145)
[2023-02-20] MEDS ORDERED: fentaNYL (PF) 50 MCG/ML 2 ML AMP ONE (13:28)
[2023-02-20] MEDS ORDERED: HEPARIN SODIUM 1,000 UN/ML (10ML VL) ONE (13:28)
[2023-02-20] MEDS ORDERED: fentaNYL (PF) 50 MCG/ML 2 ML AMP IVP ONE (13:44)
[2023-02-20] MEDS ORDERED: MIDAZOLAM 2 MG/2 ML VIAL IVP ONE (13:44)
[2023-02-20] MEDS ORDERED: LIDOCAINE 1% INJ 10MG/ML (20 ML MDV) SQ ONE (13:47)
[2023-02-20 14:08] LABS: Allen Test Performed? Yes
[2023-02-20 14:10] LABS: Allen Test Performed? Yes
[2023-02-20 14:13] LABS: ABG PCO2 43 mmHg (35-45); ABG PH 7.33 (7.35-7.45)
[2023-02-20 14:14] LABS: ABG HCO3 23 mmol/L (21-25); ABG PO2 45 mmHg (83-108); ABG TCO2 24 mmol/L (19-24)
[2023-02-20 14:15] LABS: ABG Oxygen Saturation 77.7 % (94-97)
[2023-02-20 14:16] LABS: ABG HCO3 23 mmol/L (21-25); ABG Oxygen Saturation 81.3 % (94-97); ABG PCO2 44 mmHg (35-45); ABG PH 7.33 (7.35-7.45); ABG PO2 49 mmHg (83-108); ABG TCO2 24 mmol/L (19-24)
[2023-02-20 17:43] VITALS: RESP 16
[2023-02-20 17:48] VITALS: BP 147/67; PULSE 63
--- NOTE | 2023-02-22 09:47 | P.CARDCATH ---
Date of Procedure: 02/20/23 Description of Procedure: PROCEDURES PERFORMED: Right heart catheterization INDICATION: CHF CONSENT:I have discussed the risks, benefits and alternative therapies for the above-mentioned procedure and for both sedation/analgesia as well as necessary blood product administration, if indicated, as they pertain to this patient. The patient has indicated understanding and acceptance of the risks and procedures discussed. PROCEDURE: After the risks, benefits and alternatives of the above mentioned procedure explained in detail with the patient, informed consent was obtained. Patient was taken to the catheterization lab and prepped and draped in usual fashion. Ultrasound guidance was used to assess for venous access. 1% lidocaine was used to anesthetize the right brachial area. A 6-Hong Konger sheath was placed in the right brachial vein using modified Seldinger technique and ultrasound guidance. A 6-Hong Konger Carlock-Jenise catheter was inserted into the right atrium, right ventricle, pulmonary artery and wedge position and pressure and oxygen saturation measurements were made. Thermodilution was performed. The patient tolerated the procedure well. Patient was transported back to the post catheterization holding area in stable condition. Conscious Sedation: Patient was monitored under the direct supervision of myself for conscious sedation using Versed and fentanyl for a total duration of 11 minutes HEMODYNAMICS: RA: 6 RV: 48/1 PA: 54/6 (24) PCWP: 10 RA oxygen saturation: 78% PA oxygen saturation: 81% Arterial pulse ox: 98% CO by NENA: 10.5 L/min CI by NENA: 6.2 L/min/m2 CO by thermodilution: 5.9 L/min CI by thermodilution: 3.5 L/min/m2 FINAL IMPRESSION: 1. Normal left and right sided pressures 2. Normal cardiac outpt and cardiac index PLAN: 1. Aggressive risk factor modification per most recent ACC/AHA guidelines. 2. Consider other etiologies of dyspnea with normal left and right sided pressures and normal cardiac outpt.
== END 2023-02-20 16:57 | disposition home or self-care (01) ==
LOC: CATHCVL 11:23
PROVIDERS: ATTEND Internal Medicine
DX: I11.0 Hypertensive heart disease with heart failure (principal); I50.32 Chronic diastolic (congestive) heart failure; D64.9 Anemia, unspecified; I07.1 Rheumatic tricuspid insufficiency; Z82.49 Family history of ischemic heart disease and other diseases of the circulatory system; Z79.899 Other long term (current) drug therapy
CPT/HCPCS: 93451; 76937; 80048; 82805; 85025; C1769; C1894; C1751; J2250; J2001; J3010

== ENCOUNTER 2023-05-10 09:02 | Emergency (ER) | payer MEDICARE, BC ==
[2023-05-10] MEDS ORDERED: METOCLOPRAMIDE 5 MG/ML 2 ML VIAL IVP STA (09:14)
[2023-05-10] MEDS ORDERED: SODIUM CHLORIDE 0.9% 500 ML 500 ML IV ONE (09:14)
[2023-05-10] MEDS ORDERED: ACETAMINOPHEN TAB 500 MG TAB PO STA (09:14)
[2023-05-10 09:18] VITALS: PULSE 78; RESP 18; TEMP 98.5
--- NOTE | 2023-05-10 09:26 | ED ---
General Adult HPI - General Chief complaint: Headache Stated complaint: headache Time Seen by Provider: 05/10/23 09:05 Source: patient, RN notes reviewed, old records reviewed Mode of arrival: ambulatory Limitations: no limitations - History of Present Illness Initial comments: 83-year-old female presenting for evaluation of headache. Patient began yes terday evening, gradual onset. Patient states that she took prune Tylenol last night and went to bed. She woke again with this same headache (a global headache both occipital frontal and bitemporal. She denies fever. Denies vision changes. Denies vomiting. She denies focal numbness or weakness. She does have history of hypertension and states she did not take her medication this morning. - Related Data Home Medications Medication Instructions Recorded Confirmed Calcium Carbonate/Vitamin D3 1 tab PO DAILY 08/11/16 02/16/23 [Calcium 600-Vit D3 400 Caplet] Cetirizine HCl [Zyrtec] 10 mg PO HS 08/11/16 02/16/23 Montelukast [Singulair] 10 mg PO DAILY 08/11/16 02/16/23 Simvastatin [Zocor] 40 mg PO HS 08/11/16 02/16/23 Ascorbic Acid [Vitamin C] 1,000 mg PO DAILY 06/09/17 02/16/23 Multivit with Calcium,Iron,Min 1 tab PO DAILY 06/09/17 02/16/23 [Women's Multivitamin] Escitalopram [Lexapro] 10 mg PO DAILY 05/04/21 02/16/23 Vit C/E/Zn/Coppr/Lutein/Zeaxan 1 cap PO BID 05/04/21 02/16/23 [Preservision Areds 2 Softgel] Amiodarone [Cordarone] 100 mg PO DAILY 12/11/21 02/16/23 Acetaminophen Tab [Tylenol Tab] 500 mg PO BID 02/16/23 02/16/23 Furosemide [Lasix] 20 mg PO DAILY 02/16/23 02/16/23 Mirabegron [Myrbetriq] 25 mg PO DAILY 02/16/23 02/16/23 Previous Rx's Medication Instructions Recorded Pantoprazole [Protonix] 40 mg PO DAILY 30 Days #30 tab 12/16/21 Apixaban [Eliquis] 5 mg PO BID 30 Days #60 tab 01/11/22 Metoprolol Succinate (ER) [Toprol 25 mg PO BID #60 tab 01/11/22 XL] Nirmatrelvir/Ritonavir [Paxlovid 1 each PO BID #5 each 05/10/23 300-100 mg Pack (Eua)] Allergies Allergy/AdvReac Type Severity Reaction Status Date / Time cephalexin monohydrate Allergy Rash/Hives Verified 05/10/23 09:06 [From Keflex] Review of Systems ROS Statement: Those systems with pertinent positive or pertinent negative responses have been documented in the HPI. ROS Other: All systems not noted in ROS Statement are negative. Past Medical History Past Medical History: Atrial Fibrillation, Hyperlipidemia, Hypertension, Musculoskeletal Disorder, Osteoarthritis (OA) Additional Past Medical History / Comment(s): SOB. Pulmonary hypertension. Osteoporosis. "Heart doesnt beat right." Anemia. History of Any Multi-Drug Resistant Organisms: None Reported Past Surgical History: Adenoidectomy, Appendectomy, Back Surgery, Cholecystectomy, Heart Catheterization, Hysterectomy, Tonsillectomy Additional Past Surgical History / Comment(s): Colonoscopy, EGD, bilateral cataract surgery. Past Anesthesia/Blood Transfusion Reactions: No Reported Reaction Past Psychological History: Anxiety Smoking Status: Never smoker Past Alcohol Use History: None Reported Past Drug Use History: None Reported - Past Family History Brother(s) Additional Family Medical History / Comment(s): ONE BROTHER - SELF CATH. Sister(s) Additional Family Medical History / Comment(s): ONE SISTER - PARANOID SCHIZOPHRENIA. Daughter(s) Family Medical History: Deep Vein Thrombosis (DVT), Eye Disorder, Pulmonary Embolus Additional Family Medical History / Comment(s): Macular Degeneration. General Exam Limitations: no limitations General appearance: alert, in no apparent distress Head exam: Present: atraumatic, normocephalic Eye exam: Present: normal appearance, PERRL ENT exam: Present: normal exam Neck exam: Present: normal inspection. Absent: tenderness, meningismus Respiratory exam: Present: normal lung sounds bilaterally. Absent: respiratory distress, wheezes Cardiovascular Exam: Present: regular rate, normal rhythm GI/Abdominal exam: Present: soft. Absent: distended, tenderness, guarding Extremities exam: Present: normal inspection, normal capillary refill Neurological exam: Present: alert, oriented X3, CN II-XII intact. Absent: motor sensory deficit Skin exam: Present: warm, dry, intact. Absent: cyanosis, diaphoretic Course Vital Signs 05/10/23 05/10/23 09:03 10:51 Temperature 98.5 F Pulse Rate 78 78 Respiratory 18 18 Rate Blood Pressure 190/63 124/70 O2 Sat by Pulse 99 99 Oximetry Medical Decision Making - Medical Decision Making Was pt. sent in by a medical professional or institution (, PA, TIMBER HARVESTER OPERATOR, urgent care, hospital, or [facility]...) When possible be specific @ -No Did you speak to anyone other than the patient for history (EMS, parent, family, police, friend...)? What history was obtained from this source @ -No Did you review nursing and triage notes (agree or disagree)? Why? @ -I reviewed and agree with nursing and triage notes Were old charts reviewed (outside hosp., previous admission, EMS record, old EKG, old radiological studies, urgent care reports/EKG's, [facility] records)? Report findings @ -No old charts were reviewed Differential Diagnosis (chest pain, altered mental status, abdominal pain women, abdominal pain men, vaginal bleeding, weakness, fever, dyspnea, syncope, headache, dizziness, GI bleed, back pain, seizure, CVA, palpatations, mental health, musculoskeletal)? @ -Differential Headache: Migraine, tension, cluster, carbon monoxide, central venous thrombosis, pension karma temporal arteritis, acute closure glaucoma, intercranial hemorrhage, mastoiditis, sinusitis, head injury, this is not meant to be an all-inclusive list. EKG interpreted by me (3pts min.). @ -As above X-rays interpreted by me (1pt min.). @ -None done CT interpreted by me (1pt min.). @CT brain negative for intracranial hemorrhage or mass effect U/S interpreted by me (1pt. min.). @ -None done What testing was considered but not performed or refused? (CT, X-rays, U/S, labs)? Why? @ -None What meds were considered but not given or refused? Why? @ -None Did you discuss the management of the patient with other professionals (professionals i.e. , PA, TIMBER HARVESTER OPERATOR, lab, RT, psych nurse, social director, forming roll operator heavy duty, teacher, staff command and control officer, rn case manager hospice)? Give summary @ -No Was smoking cessation discussed for >3mins.? @ -No Was critical care preformed (if so, how long)? @ -No Were there social determinants of health that impacted care today? How? (Homelessness, low income, unemployed, alcoholism, drug addiction, transportation, low edu. Level, literacy, decrease access to med. care, penitentiary, rehab)? @ -No Was there de-escalation of care discussed even if they declined (Discuss DNR or withdrawal of care, Hospice)? DNR status @ -No What co-morbidities impacted this encounter? (DM, HTN, Smoking, COPD, CAD, Cancer, CVA, ARF, Chemo, Hep., AIDS, mental health diagnosis, sleep apnea, morbid obesity)? @Hypertension Was patient admitted / discharged? Hospital course, mention meds given and route, prescriptions, significant lab abnormalities, going to OR and other pertinent info. @83-year-old female presenting with global headache. Given the patient's age and that she is on anticoagulation and did perform a head CT which was negative for intracranial hemorrhage. She has chronic anemia but otherwise normal laboratory testing. She does test positive for coronavirus. She's prescribing antiviral and will monitor symptoms closely at home. Stable for discharge. Undiagnosed new problem with uncertain prognosis? @ -No Drug Therapy requiring intensive monitoring for toxicity (Heparin, Nitro, Insulin, Cardizem)? @ -No Were any procedures done? @ -No Diagnosis/symptom? @Coronavirus Acute, or Chronic, or Acute on Chronic? @ -Acute Uncomplicated (without systemic symptoms) or Complicated (systemic symptoms)? @ -default Side effects of treatment? @ -No Exacerbation, Progression, or Severe Exacerbation? @ -No Poses a threat to life or bodily function? How? (Chest pain, USA, CO, pneumonia, PE, COPD, DKA, ARF, appy, cholecystitis, CVA, Diverticulitis, Homicidal, Suicidal, threat to staff... and all critical care pts) @ -[Low risk at this time - Lab Data Result diagrams: 05/10/23 09:05/10/23 09: Lab Results 05/10/23 05/10/23 05/10/23 Range/Units : 09: 09: WBC 6.8 (3.8-10.6) k/uL RBC 2.99 L (3.80-5.40) m/uL Hgb 9.5 L (11.4-16.0) gm/dL Hct 29.8 L (34.0-46.0) % MCV 99.9 (80.0-100.0) fL MCH 31.9 (25.0-35.0) pg MCHC 31.9 (31.0-37.0) g/dL RDW 14.5 (11.5-15.5) % Plt Count 203 (150-450) k/uL MPV 9.4 Neutrophils % 80 % Lymphocytes % 10 % Monocytes % 7 % Eosinophils % 1 % Basophils % 0 % Neutrophils # 5.4 (1.3-7.7) k/uL Lymphocytes # 0.6 L (1.0-4.8) k/uL Monocytes # 0.5 (0-1.0) k/uL Eosinophils # 0.1 (0-0.7) k/uL Basophils # 0.0 (0-0.2) k/uL Hypochromasia Slight Macrocytosis Slight Sodium 139 (137-145) mmol/L Potassium 4.2 (3.5-5.1) mmol/L Chloride 110 H (98-107) mmol/L Carbon Dioxide 19 L (22-30) mmol/L Anion Gap 10 mmol/L BUN 25 H (7-17) mg/dL Creatinine 1.02 (0.52-1.04) mg/dL Est GFR (CKD-EPI)AfAm 59 (>60 ml/min/1.73 sqM) Est GFR (CKD-EPI)NonAf 51 (>60 ml/min/1.73 sqM) Glucose 94 (74-99) mg/dL Calcium 9.0 (8.4-10.2) mg/dL Total Bilirubin 0.4 (0.2-1.3) mg/dL AST 47 H (14-36) U/L ALT 39 H (4-34) U/L Alkaline Phosphatase 77 (38-126) U/L Total Protein 6.6 (6.3-8.2) g/dL Albumin 3.9 (3.5-5.0) g/dL Influenza Type A (PCR) Not Detected (Not Detectd) Influenza Type B (PCR) Not Detected (Not Detectd) RSV (PCR) Not Detected (Not Detectd) SARS-CoV-2 (PCR) Detected A (Not Detectd) Disposition Clinical Impression: COVID-19 Disposition: HOME SELF-CARE Condition: Fair Instructions (If sedation given, give patient instructions): COVID-19 (Coronavirus Disease 2019) (ED) Prescriptions: Nirmatrelvir/Ritonavir [Paxlovid 300-100 mg Pack (Eua)] 1 each PO BID #5 each Is patient prescribed a controlled substance at d/c from ED?: No Referrals: Mazin Kumar MD [Primary Care Provider] - 1-2 days Time of Disposition: 10:36
[2023-05-10 09:33] LABS: Basophils % (A) 0 %; Eosinophils # (A) 0.1 k/uL (0-0.7); Eosinophils % (A) 1 %; HCT 29.8 % (34.0-46.0); HGB 9.5 gm/dL (11.4-16.0); Hypochromasia Slight; Lymphocytes # (A) 0.6 k/uL (1.0-4.8); Lymphocytes % (A) 10 %; MCH 31.9 pg (25.0-35.0); MCHC 31.9 g/dL (31.0-37.0); MCV 99.9 fL (80.0-100.0); Macrocytosis Slight; Mean Platelet Volume 9.4; Monocytes # (A) 0.5 k/uL (0-1.0); Monocytes % (A) 7 %; Neutrophils # (A) 5.4 k/uL (1.3-7.7); Neutrophils % (A) 80 %; Platelet Count 203 k/uL (150-450); RBC 2.99 m/uL (3.80-5.40); RDW 14.5 % (11.5-15.5); WBC 6.8 k/uL (3.8-10.6)
[2023-05-10 09:53] LABS: ALT 39 U/L (4-34); AST 47 U/L (14-36); African American GFR (CKD) 59 (>60 ml/min/1.73 sqM); Albumin 3.9 g/dL (3.5-5.0); Alkaline Phosphatase 77 U/L (38-126); Anion Gap 10 mmol/L; Blood Urea Nitrogen 25 mg/dL (7-17); Carbon Dioxide 19 mmol/L (22-30); Chloride 110 mmol/L (98-107); Glucose 94 mg/dL (74-99); Non-African American GFR(CKD) 51 (>60 ml/min/1.73 sqM); Potassium 4.2 mmol/L (3.5-5.1); Sodium 139 mmol/L (137-145); Total Bilirubin 0.4 mg/dL (0.2-1.3); Total Protein 6.6 g/dL (6.3-8.2)
--- NOTE | 2023-05-10 10:13 | CT ---
EXAMINATION TYPE: CT brain wo con DATE OF EXAM: 05/10/2023 COMPARISON: 06/09/2017 HISTORY: Headache CT DLP: 1095.1 mGycm Automated exposure control for dose reduction was used. FINDINGS: Basal ganglia calcifications noted [id number] degenerative changes with hypoattenuation white m atter most remote white matter ischemia. Craniocervical junction and pain. Sella turcica and normal. Calvarium is intact. Mild changes of ethm oidal chronic sinusitis. Orbits are symmetric. Intracranial atherosclerotic changes are noted most ma rked involving the cavernous segment bilateral ICA. IMPRESSION: DEGENERATIVE AND REMOTE ISCHEMIC WHITE MATTER CHANGE WITH NO EVIDENCE ACUTE HEMORRHAGE OR MASS EFFECT .
[2023-05-10 11:02] VITALS: BP 124/70
== END 2023-05-10 10:52 | disposition home or self-care (01) ==
LOC: EC 09:02
DX: U07.1 COVID-19 (principal); I10 Essential (primary) hypertension; E78.5 Hyperlipidemia, unspecified; I48.91 Unspecified atrial fibrillation; M19.90 Unspecified osteoarthritis, unspecified site; M81.0 Age-related osteoporosis without current pathological fracture; F41.9 Anxiety disorder, unspecified; Z88.1 Allergy status to other antibiotic agents; Z79.899 Other long term (current) drug therapy; Z79.01 Long term (current) use of anticoagulants; Z90.49 Acquired absence of other specified parts of digestive tract
CPT/HCPCS: 36415; 80053; 85025; 87636; 70450; 99284; 96374; 96361; J2765

== ENCOUNTER → 2023-06-01 | Outpatient (CLI) | payer MEDICARE, BC ==
[2023-06-01 15:38] LABS: HCT 31.8 % (37.2-46.3); HGB 9.6 g/dL (12.0-15.0); MCH 29.8 pg (27.0-32.0); MCHC 30.2 g/dL (32.0-37.0); MCV 98.8 FL (80.0-97.0); Mean Platelet Volume 11.2 FL (9.5-12.2); NRBC Per 100 WBC 0 X 10*3/uL (0.00-0.01); Platelet Count 267 X 10*3/uL (140-440); RBC 3.22 X 10*6/uL (4.10-5.20); RDW 14.3 % (11.5-14.5); WBC 5.75 X 10*3/uL (4.50-10.00)
== END | disposition home or self-care (01) ==
LOC: LABWHC1 10:13
PROVIDERS: ATTEND Internal Medicine
DX: D64.9 Anemia, unspecified (principal); R53.83 Other fatigue; Z51.81 Encounter for therapeutic drug level monitoring; Z79.899 Other long term (current) drug therapy
CPT/HCPCS: 36415; 84443; 84450; 84460; 85027

== ENCOUNTER → 2023-07-27 | Outpatient (CLI) | payer MEDICARE, BC ==
--- NOTE | 2023-07-27 12:20 | MM ---
Reason for Exam: Screening (asymptomatic). Last mammogram was performed 1 year(s) and 1 month(s) ago. Patient History: Menarche at age 14. First Full-Term at age 22. Left ovary removed at age 40. Right ovary removed at age 40. Hysterectomy at age 40. Postmenopausal. Patient has history of breast feeding. Estrogen for 5 years, 1 month. Risk Values: Darleen 5 year model risk: 1.2%. NCI Lifetime model risk: 1.5%. Prior Study Comparison: 07/08/2021 Bilateral Screening Mammogram, [facility]. 07/15/2021 Left Diagnostic Mammogram, [facility]. 07/21/2022 Bilateral MG 3D screening mammo w/cad, [facility]. Tissue Density: The breast tissue is almost entirely fat. Findings: Analyzed By CAD. There is no suspicious group of microcalcifications or new suspicious mass. Overall Assessment: Negative, BI-RAD 1 Management: Screening Mammogram of both breasts in [address] [facility] will attempt to contact patient to return for supplemental views and ultrasound if indicated. Patient should continue monthly self-breast exams. A clinical breast exam by your physician is recommended on an annual basis. This exam should not preclude additional follow-up of suspicious palpable abnormalities. Note on Darleen scores and lifetime risk: 1. A Darleen score greater than 3% is considered moderate risk. If this is the case, consider specialist referral to assess eligibility for a risk reducing agent. 2. If overall lifetime risk for the development of breast cancer is 20% or higher, the patient may qualify for future screening with alternating mammogram and breast MRI. Electronically signed and approved by: Jake Arreola DO
== END | disposition home or self-care (01) ==
LOC: RADMAMWWP 11:42
PROVIDERS: ATTEND Family Medicine
DX: Z12.31 Encounter for screening mammogram for malignant neoplasm of breast (principal); Z78.0 Asymptomatic menopausal state
CPT/HCPCS: 77063; 77067

== ENCOUNTER → 2024-02-16 | Outpatient (CLI) | payer MEDICARE, BC | END | disposition home or self-care (01) | LOC: LABWHC1 13:57 | PROVIDERS: ATTEND Family Medicine | DX: Z53.9 Procedure and treatment not carried out, unspecified reason (principal) ==

== ENCOUNTER → 2024-03-07 | Outpatient (CLI) | payer MEDICARE, BC ==
[2024-03-07 12:48] LABS: Partial Thromboplastin Time 23.6 sec (22.0-30.0); Prothrombin Time 10.8 sec (10.0-12.5)
[2024-03-07 15:20] LABS: HCT 29.1 % (37.2-46.3); MCH 31.6 pg (27.0-32.0); MCHC 30.9 g/dL (32.0-37.0); MCV 102.1 FL (80.0-97.0); Mean Platelet Volume 10.9 FL (9.5-12.2); NRBC Per 100 WBC 0 X 10*3/uL (0.00-0.01); Platelet Count 309 X 10*3/uL (140-440); RBC 2.85 X 10*6/uL (4.10-5.20); RDW 15.3 % (11.5-14.5); WBC 7.36 X 10*3/uL (4.50-10.00)
[2024-03-07 15:36] LABS: ALT 14 U/L (8-44); AST 19 U/L (13-35); Alkaline Phosphatase 76 U/L (41-126); Blood Urea Nitrogen 25.7 mg/dL (9.0-27.0); Carbon Dioxide 23.7 mmol/L (21.6-31.8); Chloride 110 mmol/L (96-109); Globulin 2.1 g/dL (1.6-3.3); Glucose 101 mg/dL (70-110); Potassium 3.9 mmol/L (3.5-5.5); Sodium 144 mmol/L (135-145); Total Bilirubin <0.2 mg/dL (0.3-1.2); Total Protein 6.1 g/dL (6.2-8.2)
== END | disposition home or self-care (01) ==
LOC: LABPAT 11:48
PROVIDERS: ATTEND Orthopaedic Surgery
DX: Z01.818 Encounter for other preprocedural examination (principal)
CPT/HCPCS: 80053; 85027; 85610; 85730; 87070; 93005

== ENCOUNTER 2024-05-13 10:39 | Day surgery (SDC) | payer MEDICARE, BC ==
[2024-05-07 10:42] VITALS: BMI 27.3
[~2024-05-13 10:39] MED LIST changes: -ALPRAZolam 0.25 MG TAB PO PRN; -ALPRAZolam 0.5 MG TAB PO PRN; -ASPIRIN 325 MG TAB PO STA; -ATORVASTATIN 80 MG TAB PO STA; -HEPARIN SODIUM,PORCINE (1 ML) 2,500 UNIT in SODIUM CHLORIDE 0.9% 250 ML IRRIGATION PRN; -HEPARIN SODIUM,PORCINE 10,000 UNIT in SODIUM CHLORIDE 0.9% 1,000 ML IRRIGATION PRN; -NITROGLYCERIN SL TABS 0.4 MG TAB SUBLINGUAL PRN; +ONDANSETRON 4 MG/2 ML VIAL IVP PRN; -SODIUM CHLORIDE 0.9% 1,000 ML in EMPTY BAG 1 BAG IV SCH; +TRANEXAMIC 1,000 MG/100ML-NACL 1,000 MG in SALINE 1 100ML.BAG IVPB PRN
[2024-05-13] MEDS ORDERED: fentaNYL (PF) 50 MCG/ML 2 ML AMP IVP PRN (11:04)
[2024-05-13] MEDS ORDERED: LIDOCAINE 1% (10MG/ML) FOR IV START INTRADERMA PRN (11:04)
[2024-05-13] MEDS: LACTATED RINGERS 1,000 ML IV SCH ×2 (11:42→17:20)
[2024-05-13] MEDS: IV FLUID CONTINUATION 1,000 ML IV ONE (11:42)
[2024-05-13] MEDS: ACETAMINOPHEN TAB 500 MG TAB PO PRN (11:49)
[2024-05-13] MEDS: MELOXICAM 7.5 MG TAB PO PRN (11:49)
[2024-05-13] MEDS: DEXAMETHASONE SOD PHOSPHATE 4 MG/ML 1 ML VIAL IV ONE (11:51)
[2024-05-13] MEDS: ONDANSETRON 4 MG/2 ML VIAL IVP ONE (11:51)
[2024-05-13] MEDS: MIDAZOLAM 2 MG/2 ML VIAL IV PRN (12:31)
[2024-05-13 12:37] LABS: Partial Thromboplastin Time 23.7 sec (22.0-30.0); Prothrombin Time 10.5 sec (10.0-12.5)
--- NOTE | 2024-05-13 12:53 | P.ANPRN ---
Procedure Note - Anesthesia - Nerve Block Performed Right Adductor Canal Infusion Time Out Performed: Yes Date of Procedure: 05/13/24 Procedure Start Time: 12:30 Procedure Stop Time: :29 Location of Patient: PreOp Indication: Acute Post-Operative Pain, Requested by Surgeon Sedation Type: Sedate with meaningful contact maintained Preparation: Sterile Prep, Sterile Dressing Position: Supine Catheter: Indwelling Needle Types: Pajunk Needle Gauge: 21 Ultrasound used to visualize needle placement: Yes Ultrasound used to observe medication spread: Yes Blood Aspirated: No Pain Paresthesia on Injection Noted: No Resistance on Injection: Normal Image Stored and Saved: Yes Events: Uneventful and Well Tolerated (Ropivacaine 0.5% 20 cc plus dexamethasone 4 mg)
--- NOTE | 2024-05-13 12:53 | P.ANPRN ---
Procedure Note - Anesthesia - Nerve Block Performed Right Shelleyck Single Time Out Performed: Yes Date of Procedure: 05/23/24 Procedure Start Time: 12:30 Procedure Stop Time: 12:32 Location of Patient: PreOp Indication: Acute Post-Operative Pain, Requested by Surgeon Sedation Type: Sedate with meaningful contact maintained Preparation: Sterile Prep Position: Supine Needle Types: Pajunk Needle Gauge: 21 Ultrasound used to visualize needle placement: Yes Ultrasound used to observe medication spread: Yes Blood Aspirated: No Pain Paresthesia on Injection Noted: No Resistance on Injection: Normal Image Stored and Saved: Yes Events: Uneventful and Well Tolerated (Ropivacaine 0.5% 20 cc plus dexamethasone 4 mg)
[2024-05-13] MEDS ORDERED: NA PHOS,M-B/NA PHOS,DI-BA 133 ML ENEMA RECTAL PRN (12:59)
[2024-05-13] MEDS ORDERED: bisacodyL 10 MG SUPP RECTAL PRN (12:59)
[2024-05-13] MEDS ORDERED: HYDROmorphone 0.5 MG/0.5 ML SYRINGE IVP PRN (12:59)
[2024-05-13] MEDS ORDERED: ONDANSETRON 4 MG/2 ML VIAL IVP PRN (12:59)
[2024-05-13] MEDS ORDERED: NALOXONE 0.4 MG/ML 1 ML VIAL IV PRN (12:59)
[2024-05-13] MEDS ORDERED: MAGNESIUM HYDROXIDE 2,400 MG/30 ML CUP PO PRN (12:59)
[2024-05-13] MEDS ORDERED: VANCOMYCIN 0 MG in SODIUM CHLORIDE 0.9% 250 ML IVPB ONE (12:59)
[2024-05-13] MEDS ORDERED: fentaNYL (PF) 50 MCG/ML 2 ML AMP ONE (13:00)
[2024-05-13] MEDS ORDERED: DEXAMETHASONE SOD PHOSPHATE 4 MG/ML 1 ML VIAL ONE (13:00)
[2024-05-13] MEDS ORDERED: PROPOFOL 10 MG/ML 20 ML VIAL IV ONE (13:00)
[2024-05-13] MEDS ORDERED: MIDAZOLAM 2 MG/2 ML VIAL ONE (13:00)
[2024-05-13] MEDS ORDERED: NEOSTIGMINE 1 MG/ML 10 ML VIAL ONE (13:00)
[2024-05-13] MEDS ORDERED: ROCURONIUM 10 MG/ML (5 ML VIAL) IV ONE (13:00)
[2024-05-13] MEDS ORDERED: SUCCINYLCHOLINE CHLORIDE 200 MG/10 ML VIAL IV ONE (13:00)
[2024-05-13] MEDS ORDERED: TRANEXAMIC 1,000 MG/100ML-NACL PREMIX BAG ONE (13:00)
[2024-05-13] MEDS ORDERED: LIDOCAINE 1% INJ 10MG/ML (20 ML MDV) ONE (13:00)
[2024-05-13] MEDS ORDERED: HYDROmorphone (PF) 1 MG/ML ONE (13:00)
[2024-05-13] MEDS ORDERED: GLYCOPYRROLATE 0.2 MG/ML 2 ML VIAL ONE (13:00)
[2024-05-13] MEDS ORDERED: ROPIVACAINE 5 MG/ML 30 ML VIAL ONE (13:00)
--- NOTE | 2024-05-13 14:48 | P.OP ---
Date of Procedure: 05/13/24 Procedure(s) Performed: PREOPERATIVE DIAGNOSIS: Right knee severe osteoarthritis with genu varum POSTOPERATIVE DIAGNOSIS: Right knee severe osteoarthritis with genu varum; 2. Diminished bone quality/osteopenia/osteoporosis OPERATION: Right knee cemented total replacement arthroplasty. ANESTHESIA: Spinal plus ACB and IPAC regional blocks for postoperative pain control ESTIMATED BLOOD LOSS: 100 ml. CRANE FOLLOWER: Jayne Jaimes PA-C (assistance with: patient positioning, retraction, exposure, hemostasis, leg positioning, implantation, irrigation, closure, dressing) COMPLICATIONS: None apparent. COMPONENTS IMPLANTED: Persona system from Michael with tibial stem extension INDICATIONS: Anita is an 84 year old female with a history of right knee osteoarthritis. The patient's knee is end-stage, and conservative management has failed. She has deficient bone and a 15 degree flexion contracture. The operation of knee replacement has been discussed at length in the office, as well as potential risks and complications. These are inclusive of, but not limited to: bleeding, infection, scarring, discomfort, blood vessel and nerve damage, need for further surgery, failure to relieve symptoms, persistence, recurrence, or worsening of problems, loosening, dislocation, wear, blood clot, pulmonary embolism, , gait dysfunction, stiffness, and other risks as discussed in the office. The patient elects to proceed and the consent form has been signed. PROCEDURE: The patient was taken to the operating room and positioned on the operating room table in the supine position. Anesthesia was initiated. Care was taken to make sure that all pressure points were adequately padded. The oper ative lower extremity was prepped and draped in the usual aseptic fashion using ChloraPrep. Ioban drape was used for the case and the patient received intravenous antibiotics within one hour of the incision. A pneumotourniquet and leg fabian were used for the case. The limb was exsanguinated with an Esmarch bandage and the tourniquet was inflated to 250 mmHg. Time-out was called confirming the patient's identity, side, procedure and administration of antibiotics. The incision was then created midline directly over the knee, carried down through skin and into the subcutaneous tissues and down to fascia. Full thickness subcutaneous medial flap was developed. Medial parapatellar arthrotomy was performed and the interior of the knee was inspected. There was end-stage osteoarthritis of the knee with a mild to moderate genu varum type deformity. The fat pad was excised and proximal medial release on the tibia was completed using meticulous dissection and a curved osteotome. The anterior cruciate ligament was taken down. Note was made of significant attrition of the anterior and significant degenerative appearance of the posterior cruciate ligaments. The exposure was excellent. The knee was flexed 90 degrees and the patella was everted. A spot was chosen on the femur approximately 1 cm anterior to the posterior cruciate ligament insertion and an intramedullary hole was created within the femur. The intramedullary guide was then set to 5 degrees of valgus. The distal cutting block was attached and pinned into position. An appropriate amount of distal femoral resection was set. The oscillating saw was then used to make the distal femoral cut. This cut was confirmed to be flat with the flat end of an osteotome. The retractors were placed around the tibia and the tibial surface was addressed. The angle and depth of resection was adjusted using an extramedullary cutting guide. The guide had a built-in 3 degree posterior slope cut. Once the cutting guide was adjusted appropriately and in line with the axis of the tibia and confirmed to be in good position in relation to the second metatarsal and transmalleolar axis, the tibial cut was then created with protection of the posterior neurovascular structures and the collateral ligaments. Note was made of diminished bone quality and therefore a short tibial stem extension was planned. The tibial cut surface was removed and sized. Femoral sizing was then accomplished using anterior referencing. Care was taken to analyze the posterior condyles for signs of deficiency or severe wear, and adjustments to the guide were made, as appropriate. 3 degree external rotation pins were placed. The cutting jig for the femur was applied to these pins. The planned cuts were further analyzed prior to performing them with the oscillating saw. No femoral notching was produced. Bone fragments were removed and the cut surfaces were finished, as necessary, with a reciprocating saw. Spacer block technique was then used to confirm that the flexion and extension gaps were equal. Soft tissue releases and adjustment of the tibial and/or femoral cuts were made, as necessary, until the gaps were equal. This included release of the posterior cruciate ligament, which was tight in this patient and, if left unreleased, would have resulted in poor kinematics and possibly early loosening. The femur was then further finished for a posterior cruciate ligament substituting component. Patellar resurfacing was performed using a reamer. The size of the required patellar component was estimated and the patellar surface was then reamed down to a residual thickness which would recreate the [place] thickness with the component. The exact placement of the patellar component was adjusted for position based on preoperative x-rays and intraoperative findings. The trial components were inserted. The tibial tray was allowed to self center and the patella was noted to track very well. The position of the tibial component was marked and the tibia was then finished for a stemmed tibial component. Cement was mixed on the back table and applied to the final components. Trial components were removed and the cut surfaces of the bone were pulse lavaged thoroughly and dried. Cement was then applied to the tibial surface and pressurized into the surface using finger pressurization technique. The tibial component with stem extension was then applied and excess cement was removed after it was impacted securely and noted to be flush with the cut surface. In similar fashion, the cement was applied to the cut femoral surface, pressurized in using finger pressurization and the component was impacted into place. Excess cement was removed. The polyethylene spacer was then implanted and locked into position. The patellar component was then applied in similar technique and a patellar clamp was used to hold the patella in place as the cement hardened. Once the cement had fully hardened, the knee was reinspected. Any other cement extrusion was removed and final kinematic testing showed range of motion from 0 to 130 degrees with excellent stability, both medially and laterally and appropriate alignment of the leg. Patellar tracking was excellent. The knee was then thoroughly pulse lavaged with normal saline. The tourniquet was deflated and hemostasis was obtained with electrocautery and IV tranexamic acid, 1 g given at the start of the operation and 1 g at the start of closure. Closure was with #2 Ethibond in the fascia/capsule and supplemented with #2 Quill, 2-0 Vicryl suture was used for the subcutaneous tissues and 3-0 Quill for the skin. Dermabond/Steri-Strips were then applied. A lightly compressive dressing was applied using Webril and an Terell wrap. The patient was then transferred to stretcher and taken to the recovery room in stable condition. Sponge and needle counts were correct.
[2024-05-13] MEDS: LACTATED RINGERS 1,000 ML IV ONE (14:50)
[2024-05-13] MEDS: ROPIVACAINE 1,100 MG, SODIUM CHLORIDE 0.9% 500 ML 330 ML, EMPTY PAIN BALL 1 EACH MISCELLANE PRN (15:19)
[2024-05-13] MEDS: hydrALAZINE HCL 20 MG/ML 1 ML VIAL IVP STA (15:37)
[2024-05-13] MEDS: HYDROmorphone 0.5 MG/0.5 ML SYRINGE IVP PRN (15:53)
--- NOTE | 2024-05-13 15:56 | XR ---
EXAMINATION TYPE: XR knee limited RT DATE OF EXAM: 05/13/2024 3:22 PM COMPARISON: 12/05/2019 CLINICAL INDICATION: Female, 84 years old with history of Post op TKA; [facility] TECHNIQUE: XR knee limited RT 2 views submitted. FINDINGS: Status post total knee arthroplasty changes with hardware in appropriate alignment and in tact. No evidence of fracture. Subcutaneous lucencies and lucencies within the joint consistent with surgical changes. IMPRESSION: Status post total knee arthroplasty changes with hardware intact and appropriate alignment. No fractu res identified. [facility], , 05/13/2024 3:53 PM
[2024-05-13] MEDS: SENNOSIDES-DOCUSATE SODIUM 1 EACH TAB PO SCH (21:10)
[2024-05-13] MEDS: ASPIRIN 81 MG PO SCH (21:10)
[2024-05-13] MEDS: HYDROcodone/APAP 5-325MG 1 EACH TAB PO PRN (22:41)
[2024-05-14] MEDS: HYDROmorphone 0.5 MG/0.5 ML SYRINGE IVP PRN (04:11)
--- NOTE | 2024-05-14 07:32 | P.PN ---
Progress Note - Text Progress Note Date: 05/14/24 patient was seen and evaluated at bedside. Status post postoperative day 1 for right side total knee arthroplasty patient had adductor canal catheter for postop pain control. Patient rated pain at rest 3-4 out of 10 in severity. Patient describes pain is aching, throbbing type on the sides of the knee and back of the knee. Patient started walking with support. With activity patient pain levels are 6-7 out of 10 in severity. With the help of oral pain medications pain levels are tolerable. Patient denied any weakness/ numbness in lower extremities. patient denied any fever, pain over the catheter site. Physical exam: Patient vital signs stable Patient is alert awake oriented 3 responding to all questions appropriately Examination of the catheter site showed dressing intact, no leaking fluid around the catheter, no redness, no tenderness over the catheter insertion area. plan: status post postoperative day 1 for right side total knee arthroplasty with adductor canal catheter for pain control. Patient was discussed to continue the medication at the rate of 8 mL per hour until the pump is completely empty and instructed the patient how to discontinue the catheter.
--- NOTE | 2024-05-14 09:33 | P.PN ---
Subjective Progress Note Date: 05/14/24 This is an 84-year-old fe male who is status post right total knee arthroplasty. This is postoperative day #1 and patient is seen and evaluated at bedside today. Patient states that she was unsteady when working with physical therapy. Patient states that her pain is well-controlled. Objective - Vital Signs Vital signs: Vital Signs Temp 97.7 F 05/14/24 07:20 Pulse 101 H 05/14/24 09:12 Resp 20 05/14/24 09:12 BP 153/71 05/14/24 07:20 Pulse Ox 90 L 05/14/24 07:20 FiO2 Intake & Output 05/13/24 05/14/24 05/14/24 18:59 06:59 18:59 Intake Total 1200 Output Total 50 475 Balance 1150 -475 Weight 65 kg Intake: IV 1200 Output: Urine 475 Straight 475 Estimated Blood Loss 50 Other: Voiding Method Toilet # Voids 0 - Exam Vital signs are stable. Patient is in no acute distress and is alert and oriented 3. Calf is soft and nontender to palpation. Dressing is clean, dry, and intact. Patient has full foot and ankle motion without pain or difficulty. Sensation intact. Neurovascular status and circulatory status are intact. Assessment and Plan (1) Osteoarthritis of right knee Current Visit: Yes Status: Acute Code(s): M17.11 - UNILATERAL PRIMARY OSTEOARTHRITIS, RIGHT KNEE SNOMED Code(s): 769261112910157 (2) S/P total knee arthroplasty Current Visit: Yes Status: Acute Code(s): Z96.659 - PRESENCE OF UNSPECIFIED ARTIFICIAL KNEE JOINT SNOMED Code(s): 0416458407525 Plan: #1 Continue with routine postoperative care and pain control, leave dressing in place for 7 days. #2 Anticoagulation with aspirin. #3 Physical therapy today. #4 Appreciate input from internal medicine. #5 Anticipate discharge home with home care or to ECF in the next 24-48 hours.
[2024-05-14 10:11] LABS: Basophils # (A) 0.01 X 10*3/uL (0.00-0.10); Basophils % (A) 0.1 %; Eosinophils # (A) 0 X 10*3/uL (0.04-0.35); Eosinophils % (A) 0 %; HCT 29.7 % (37.2-46.3); HGB 8.8 g/dL (12.0-15.0); Lymphocytes # (A) 0.42 X 10*3/uL (0.90-5.00); Lymphocytes % (A) 4.6 %; MCH 30.7 pg (27.0-32.0); MCHC 29.6 g/dL (32.0-37.0); MCV 103.5 FL (80.0-97.0); Mean Platelet Volume 11.2 FL (9.5-12.2); Monocytes # (A) 0.73 X 10*3/uL (0.20-1.00); Monocytes % (A) 7.9 %; NRBC Per 100 WBC 0 X 10*3/uL (0.00-0.01); Platelet Count 247 X 10*3/uL (140-440); RBC 2.87 X 10*6/uL (4.10-5.20); RDW 14.6 % (11.5-14.5)
[2024-05-14] MEDS: MELOXICAM 7.5 MG TAB PO SCH (10:27)
[2024-05-14] MEDS: ESCITALOPRAM 10 MG TAB PO SCH (15:15)
[2024-05-14] MEDS: FOLIC ACID 1 MG TAB PO SCH (15:15)
[2024-05-14] MEDS: THIAMINE 100 MG TAB PO SCH (15:15)
[2024-05-14] MEDS: AMIODARONE 100 MG TAB PO SCH (15:15)
[2024-05-14] MEDS: MULTIVITAMINS, THERA 1 EACH TAB PO SCH (15:15)
[2024-05-14] MEDS: PANTOPRAZOLE 40 MG TABLET PO SCH (15:15)
[2024-05-14] MEDS: TAMSULOSIN 0.4 MG CAP.ER.24H PO SCH (17:11)
[2024-05-14] MEDS: ATORVASTATIN 20 MG TAB PO SCH (21:03)
[2024-05-14] MEDS: METOPROLOL SUCCINATE (ER) 25 MG TAB.ER.24H PO SCH (21:03)
[2024-05-14] MEDS: LORATADINE 10 MG TAB PO SCH (21:03)
--- NOTE | 2024-05-14 21:06 | CONS ---
CONSULTATION REASON FOR CONSULTATION: Advice regarding atrial fibrillation and other medications, requested by Orthopedics. HISTORY OF PRESENT ILLNESS: This is an 84-year-old woman with a past medical history of multiple medical problems including atrial fibrillation, underwent right total knee joint arthroplasty. The patient is really shaky and complains of some pain and weakness at this time. There is no history of any fever, rigors, or chills. PAST MEDICAL HISTORY: Reviewed include atrial fibrillation, hypertension, hyperlipidemia. Rest of the history and rest of the chart is also reviewed. HOME MEDICATIONS: Reviewed include Cordarone. Doses and rest of medications reviewed. ALLERGIES: Cephalexin. FAMILY HISTORY: History of DVT and pulmonary embolism. Rest of the history is also noted. SOCIAL HISTORY: No history of smoking or alcohol. REVIEW OF SYSTEMS: Fourteen-point review is negative except as mentioned earlier. PHYSICAL EXAMINATION: VITAL SIGNS: Pulse is 101, blood pressure n, respirations 20. HEENT: Conjunctivae normal. CARDIOVASCULAR: S1, S2. RESPIRATIONS: A few scattered rhonchi. ABDOMEN: Soft. LEGS: Status post surgery. NERVOUS SYSTEM: Nonfocal. LABORATORY DATA: WBC 8.8. ASSESSMENT: 1. Status post right total knee joint arthroplasty. 2. Atrial fibrillation. 3. Anemia. 4. Hypertension. 5. Hyperlipidemia. 6. History of degenerative joint disease. 7. History of pulmonary hypertension. 8. Family history of deep venous thrombosis and pulmonary embolism. RECOMMENDATIONS AND DISCUSSION: This is an 84-year-old woman who presented with multiple complex medical issues. We will monitor the patient closely. Continue the current management and continue symptomatic treatment. Otherwise, I would recommend resume the home medications once they are confirmed. Also, recommend a short course of Xarelto because of the patient's family history of DVT and PE. Prognosis guarded. Further recommendations to follow. PT, OT evaluation. I would supplement vitamins also. Further recommendations to follow. MMODL / IJN: [id number] / HANNA
[2024-05-14] MEDS: VIT A,C & E-LUTEIN-MINERALS 1 EACH TAB PO SCH (23:32)
[2024-05-15] MEDS: HYDROmorphone 0.5 MG/0.5 ML SYRINGE IVP PRN (03:32)
[2024-05-15 07:37] VITALS: BP 164/67; PULSE 89; RESP 16; TEMP 98.1
[2024-05-15] MEDS: CALCIUM CARB-VIT D 500 MG-5 MCG TAB PO SCH (08:37)
[2024-05-15] MEDS: MONTELUKAST 10 MG TAB PO SCH (08:37)
[2024-05-15] MEDS: ASCORBIC ACID 500 MG TAB PO SCH (08:37)
[2024-05-15 08:46] LABS: Basophils # (A) 0.02 X 10*3/uL (0.00-0.10); Basophils % (A) 0.3 %; Eosinophils # (A) 0.08 X 10*3/uL (0.04-0.35); Eosinophils % (A) 1.2 %; HCT 25.1 % (37.2-46.3); HGB 7.7 g/dL (12.0-15.0); Lymphocytes # (A) 0.84 X 10*3/uL (0.90-5.00); Lymphocytes % (A) 12.2 %; MCH 31.4 pg (27.0-32.0); MCHC 30.7 g/dL (32.0-37.0); MCV 102.4 FL (80.0-97.0); Mean Platelet Volume 11.7 FL (9.5-12.2); Monocytes # (A) 0.79 X 10*3/uL (0.20-1.00); Monocytes % (A) 11.5 %; NRBC Per 100 WBC 0 X 10*3/uL (0.00-0.01); Neutrophils # (A) 5.12 X 10*3/uL (1.80-7.70); Neutrophils % (A) 74.4 %; Platelet Count 206 X 10*3/uL (140-440); RBC 2.45 X 10*6/uL (4.10-5.20); RDW 15.1 % (11.5-14.5); WBC 6.88 X 10*3/uL (4.50-10.00)
[2024-05-15 08:50] LABS: BUN/Creat Ratio 21.17 Ratio (12.00-20.00); Blood Urea Nitrogen 25.4 mg/dL (9.0-27.0); Calcium 8.3 mg/dL (8.7-10.3); Carbon Dioxide 20.8 mmol/L (21.6-31.8); Chloride 111 mmol/L (96-109); Glucose 106 mg/dL (70-110); Potassium 4.3 mmol/L (3.5-5.5); Sodium 142 mmol/L (135-145)
[2024-05-15] MEDS: FERROUS SULFATE 325 MG TAB PO SCH (13:08)
--- NOTE | 2024-05-15 13:45 | P.DS ---
Providers Expected date of discharge: 05/15/24 Attending physician: Deion West Consults: 05/13/24 13:05 Consult Physician Routine Consulting Provider: Melo Trinh Consult Reason/Comments: Medical management Do you want consulting provider notified?: Yes Primary care physician: Mazin Kumar - Discharge Diagnosis(es) (1) Osteoarthritis of right knee Current Visit: Yes Status: Acute (2) S/P total knee arthroplasty Current Visit: Yes Status: Acute Hospital Course: This is a 84-year-old female who was last seen with complaint of continued right knee pain. The patient has a known history of degenerative arthritis of the right knee and presents to discuss surgical options. After discussion and consideration the patient elects to proceed with total right knee arthroplasty. The patient is seen preoperatively by her primary care physician and cleared for surgery. The patient is admitted to [facility] for total right knee arthroplasty. The procedures performed without complication or sequelae. Patient is doing well postoperatively. Vital signs are stable at discharge. Labs are stable at discharge. The patient had some difficulty with independent ambulation and activities but is improved on postop day 2. The patient is discharged to home on postop day # 2 pending medical clearance. Please see orders and refer to the med rec for accurate list of medications. Patient Condition at Discharge: Stable Plan - Discharge Summary Discharge Rx Participant: No New Discharge Prescriptions: New Aspirin [Adult Low Dose Aspirin EC] 81 mg PO BID #1 tab Meloxicam 7.5 mg PO DAILY #30 tab HYDROcodone/APAP 5-325MG [[place] 5-325] 1 - 2 tab PO Q6HR PRN #28 tab PRN Reason: Pain Sennosides-Docusate Sodium [Senokot-S] 1 tab PO BID #60 tablet Ondansetron Odt [Zofran Odt] 4 mg PO Q8HR PRN #14 tab PRN Reason: Nausea No Action Montelukast [Singulair] 10 mg PO QAM Cetirizine HCl [Zyrtec] 10 mg PO HS Calcium Carbonate/Vitamin D3 [Calcium 600-Vit D3 400 Caplet] 1 tab PO DAILY Multivit with Calcium,Iron,Min [Women's Multivitamin] 1 tab PO DAILY Ascorbic Acid [Vitamin C] 1,000 mg PO DAILY Vit C/E/Zn/Coppr/Lutein/Zeaxan [Preservision Areds 2 Softgel] 1 cap PO BID Metoprolol Succinate (ER) [Toprol XL] 25 mg PO BID #60 tab Mirabegron [Myrbetriq] 25 mg PO QAM Pantoprazole [Protonix] 40 mg PO QAM Escitalopram [Lexapro] 10 mg PO QAM Amiodarone [Cordarone] 100 mg PO QAM Apixaban [Eliquis] 5 mg PO BID 30 Days #60 tab Furosemide [Lasix] 20 mg PO DAILY Acetaminophen Tab [Tylenol Tab] 500 mg PO BID Rosuvastatin Calcium [Crestor] 10 mg PO HS Discharge Medication List Calcium Carbonate/Vitamin D3 [Calcium 600-Vit D3 400 Caplet] 1 tab PO DAILY 08/11/16 [History] Cetirizine HCl [Zyrtec] 10 mg PO HS 08/11/16 [History] Montelukast [Singulair] 10 mg PO QAM 08/11/16 [History] Ascorbic Acid [Vitamin C] 1,000 mg PO DAILY 06/09/17 [History] Multivit with Calcium,Iron,Min [Women's Multivitamin] 1 tab PO DAILY 06/09/17 [History] Escitalopram [Lexapro] 10 mg PO QAM 05/04/21 [History] Vit C/E/Zn/Coppr/Lutein/Zeaxan [Preservision Areds 2 Softgel] 1 cap PO BID 05/04/21 [History] Amiodarone [Cordarone] 100 mg PO QAM 12/11/21 [History] Apixaban [Eliquis] 5 mg PO BID 30 Days #60 tab 01/11/22 [Rx] Metoprolol Succinate (ER) [Toprol XL] 25 mg PO BID #60 tab 01/11/22 [Rx] Acetaminophen Tab [Tylenol Tab] 500 mg PO BID 02/16/23 [History] Furosemide [Lasix] 20 mg PO DAILY 02/16/23 [History] Mirabegron [Myrbetriq] 25 mg PO QAM 02/16/23 [History] Pantoprazole [Protonix] 40 mg PO QAM 05/08/24 [History] Rosuvastatin Calcium [Crestor] 10 mg PO HS 05/08/24 [History] Aspirin [Adult Low Dose Aspirin EC] 81 mg PO BID #1 tab 05/13/24 [Rx] HYDROcodone/APAP 5-325MG [[place] 5-325] 1 - 2 tab PO Q6HR PRN #28 tab 05/13/24 [Rx] Meloxicam 7.5 mg PO DAILY #30 tab 05/13/24 [Rx] Ondansetron Odt [Zofran Odt] 4 mg PO Q8HR PRN #14 tab 05/13/24 [Rx] Sennosides-Docusate Sodium [Senokot-S] 1 tab PO BID #60 tablet 05/13/24 [Rx] Follow up Appointment(s)/Referral(s): Jayne Jaimes, PAC [PHYSICIAN CERTIFIED NUTRITIONIST] - 2 Weeks [facility] [NON-STAFF] - As Needed Activity/Diet/Wound Care/Special Instructions: May bear weight as tolerated with walker. May remove Terell wrap and stocking 2 days postop and may shower. Leave stocking on during the day for 2 weeks postop. Remove Optifoam dressing 1 week postop.
--- NOTE | 2024-05-16 06:18 | PN ---
PROGRESS NOTE DATE OF SERVICE: 05/15/2024 SUBJECTIVE: This is an 84-year-old woman admitted after orthopedic surgery with anemia. The patient has chronic anemia, being followed by Dr. Ortiz in the outpatient setting. Her hemoglobin is 7.7. The patient has taken iron tablets previously. No chest pain. No palpitation. OBJECTIVE: VITAL SIGNS: Pulse is 89, blood pressure 164/69, respirations 16. CHEST: Clear to auscultation. CARDIOVASCULAR: S1, S2. ABDOMEN: Soft. LEGS: Status post surgery. LABORATORY DATA: Noted. ASSESSMENT: 1. Status post right total knee joint arthroplasty. 2. Atrial fibrillation. 3. Chronic anemia. 4. Hypertension. 5. Hyperlipidemia. 6. History of degenerative joint disease. 7. History of pulmonary hypertension. 8. Family history of DVT and pulmonary embolism. RECOMMENDATIONS AND DISCUSSION: Recommend to continue current management and continue symptomatic treatment. Otherwise resume the home medications. Closely follow with primary physician in the outpatient setting. MMODL / IJN: [id number] /
== END 2024-05-15 14:36 ==
LOC: OR 10:39 → 4SSUR 15:00 → OR 05-15 14:36
PROVIDERS: ATTEND Orthopaedic Surgery
DX: M17.11 Unilateral primary osteoarthritis, right knee (principal); M81.0 Age-related osteoporosis without current pathological fracture; E78.5 Hyperlipidemia, unspecified; G89.18 Other acute postprocedural pain; I10 Essential (primary) hypertension; I27.20 Pulmonary hypertension, unspecified; I48.91 Unspecified atrial fibrillation; Z79.01 Long term (current) use of anticoagulants; Z79.82 Long term (current) use of aspirin; Z88.1 Allergy status to other antibiotic agents; Z79.899 Other long term (current) drug therapy
CPT/HCPCS: 97116; 97161; 97166; 64999; 64448; 86900; 86901; 80048; 85025 ×2; 85610; 85730; 86850; 73560; 27447; C1713; C1776; C1751; J2250; J0360; J1100; J0690 ×2; J2405; J2795; J1171 ×3

== ENCOUNTER 2024-06-09 09:37 | Emergency (ER) | payer MEDICARE, BC ==
[2024-06-09 09:45] VITALS: BP 170/61; PULSE 63; RESP 20; TEMP 97.5
--- NOTE | 2024-06-09 09:53 | ED ---
Fall HPI - General Chief Complaint: Fall Stated Complaint: Fall/R Knee Injury Time Seen by Provider: 06/09/24 09:45 Source: patient, RN notes reviewed Mode of arrival: wheelchair Limitations: no limitations - History of Present Illness Initial Comments: This is an 84-year-old female who presents to the emergency department for a right knee injury. Patient tripped and fell this morning, landing on her right knee. States that she had the right knee replaced with Dr. West last month. Part of the incision opened up from the fall and started bleeding. This is not particularly painful. Denies hitting her head or sustaining any other injuries. Not take any blood thinners. MD Complaint: fall - Related Data Home Medications Medication Instructions Recorded Confirmed Calcium Carbonate/Vitamin D3 1 tab PO DAILY 08/11/16 05/13/24 [Calcium 600-Vit D3 400 Caplet] Cetirizine HCl [Zyrtec] 10 mg PO HS 08/11/16 05/13/24 Montelukast [Singulair] 10 mg PO QAM 08/11/16 05/13/24 Ascorbic Acid [Vitamin C] 1,000 mg PO DAILY 06/09/17 05/13/24 Multivit with Calcium,Iron,Min 1 tab PO DAILY 06/09/17 05/13/24 [Women's Multivitamin] Escitalopram [Lexapro] 10 mg PO QAM 05/04/21 05/13/24 Vit C/E/Zn/Coppr/Lutein/Zeaxan 1 cap PO BID 05/04/21 05/13/24 [Preservision Areds 2 Softgel] Amiodarone [Cordarone] 100 mg PO QAM 12/11/21 05/13/24 Acetaminophen Tab [Tylenol Tab] 500 mg PO BID 02/16/23 05/13/24 Furosemide [Lasix] 20 mg PO DAILY 02/16/23 05/13/24 Mirabegron [Myrbetriq] 25 mg PO QAM 02/16/23 05/13/24 Pantoprazole [Protonix] 40 mg PO QAM 05/08/24 05/13/24 Rosuvastatin Calcium [Crestor] 10 mg PO HS 05/08/24 05/13/24 Previous Rx's Medication Instructions Recorded Apixaban [Eliquis] 5 mg PO BID 30 Days #60 tab 01/11/22 Metoprolol Succinate (ER) [Toprol 25 mg PO BID #60 tab 01/11/22 XL] Aspirin [Adult Low Dose Aspirin EC] 81 mg PO BID #1 tab 05/13/24 HYDROcodone/APAP 5-325MG [[place] 1 - 2 tab PO Q6HR PRN #28 tab 05/13/24 5-325] Meloxicam 7.5 mg PO DAILY #30 tab 05/13/24 Ondansetron Odt [Zofran Odt] 4 mg PO Q8HR PRN #14 tab 05/13/24 Sennosides-Docusate Sodium 1 tab PO BID #60 tablet 05/13/24 [Senokot-S] Allergies Allergy/AdvReac Type Severity Reaction Status Date / Time cephalexin monohydrate Allergy Rash/Hives Verified 06/09/24 09:39 [From Keflex] cheese Allergy Rash/Hives Verified 06/09/24 09:39 tomato Allergy Rash/Hives Verified 06/09/24 09:39 Review of Systems ROS Statement: Those systems with pertinent positive or pertinent negative responses have been documented in the HPI. ROS Other: All systems not noted in ROS Statement are negative. Past Medical History Past Medical History: Atrial Fibrillation, Hyperlipidemia, Hypertension, Musculoskeletal Disorder, Osteoarthritis (OA) Additional Past Medical History / Comment(s): SOB. Pulmonary hypertension. Osteoporosis. "Heart doesnt beat right." Anemia. History of Any Multi-Drug Resistant Organisms: None Reported Past Surgical History: Adenoidectomy, Appendectomy, Back Surgery, Cholecystectomy, Heart Catheterization, Hysterectomy, Tonsillectomy Additional Past Surgical History / Comment(s): Colonoscopy, EGD, bilateral cataract surgery. Past Anesthesia/Blood Transfusion Reactions: No Reported Reaction Past Psychological History: Anxiety Smoking Status: Never smoker Past Alcohol Use History: None Reported Past Drug Use History: None Reported - Past Family History Daughter(s) Family Medical History: Deep Vein Thrombosis (DVT), Eye Disorder, Pulmonary Embolus General Exam Limitations: no limitations General appearance: alert, in no apparent distress Head exam: Present: atraumatic, normocephalic, normal inspection Respiratory exam: Present: normal lung sounds bilaterally. Absent: respiratory distress, wheezes, rales, rhonchi, stridor Cardiovascular Exam: Present: regular rate, normal rhythm, normal heart sounds. Absent: systolic murmur, diastolic murmur, rubs, gallop, clicks Extremities exam: Present: other (Incision to the right knee has a small area in the center that has started to slightly open up with mild active bleeding) Neurological exam: Present: alert, oriented X3, CN II-XII intact Psychiatric exam: Present: normal affect, normal mood Course Vital Signs 06/09/24 09:40 Temperature 97.5 F L Pulse Rate 63 Respiratory 20 Rate Blood Pressure 170/61 O2 Sat by Pulse 97 Oximetry Medical Decision Making - Medical Decision Making This is an 84-year-old female who presents to the emergency department for a right knee injury. Was pt. sent in by a medical professional or institution? @ -No Did you speak to anyone other than the patient for history? @ -No Did you review nursing and triage notes? @ -Yes, and I agree, it is accurate with regards to the patient's symptoms. Were old charts reviewed? @ -No Differential Diagnosis? @ -Differential Musculoskeletal Muscular strain, contusion, ligament sprain, fracture, arthritis, septic arthritis, bursitis, cellulitis, muscle spasm, nerve compression, DVT, arterial occlusion, herpes zoster, electrolyte abnormality, tumor.... This is not meant to be in all inclusive list EKG interpreted by me (3pts min.)? @ -Not obtained X-rays interpreted by me (1pt min.)? @ -X-ray of the right knee obtained. My interpretation identifies no acute fractures. CT interpreted by me (1pt min.)? @ -Not obtained U/S interpreted by me (1pt. min.)? @ -Not obtained What testing was considered but not performed? (CT, X-rays, U/S, labs)? Why? @ -None What meds were considered but not given? Why? @ -None Did you discuss the management of the patient with other professionals? @ -No Did you reconcile home meds? @ -No Was smoking cessation discussed for >3mins.? @ -No Was critical care preformed (if so, how long)? @ -No Were there social determinants of health that impacted care today? How? (Homelessness, low income, unemployed, alcoholism, drug addiction, transportation, low edu. Level, literacy, decrease access to med. care, half-way, rehab)? @ -No Was there de-escalation of care discussed even if they declined? (Discuss DNR or withdrawal of care, Hospice)? @ -No What co-morbidities impacted this encounter? (DM, HTN, Smoking, COPD, CAD, Cancer, CVA, Hep., AIDS, mental health diagnosis, sleep apnea, morbid obesity)? @ -Osteoarthritis Was patient admitted / discharged? @ -Discharged. X-ray of the right knee obtained revealing no acute process. Hardware is intact. On exam she had a very small area of the incision that had started to open up, however this was fairly superficial. Bleeding had stopped on its own when she arrived in the emergency department. The wound was cleansed and closed with Steri-Strips. The rest the leg was then bandaged as well. Tetanus vaccine updated. Advised Tylenol as needed for pain relief and follow- up with orthopedics. Patient discharged home in stable condition. Case discussed with ED attending Dr. Huber. Return precautions reviewed in depth, the patient is instructed to return to the emergency department with any new, worsening, or concerning symptoms. Patient verbalized understanding. Undiagnosed new problem with uncertain prognosis? @ -None Drug Therapy requiring intensive monitoring for toxicity (Heparin, Nitro, Insulin, Cardizem)? @ -None Were any procedures done? @ -None Diagnosis/symptom? @ -Fall, right knee contusion Acute, or Chronic, or Acute on Chronic? @ -Acute Uncomplicated (without systemic symptoms) or Complicated (systemic symptoms)? @ -Uncomplicated Side effects of treatment? @ -None Exacerbation, Progression, or Severe Exacerbation] @ -Not applicable Poses a threat to life or bodily function? @ -No - Radiology Data Radiology results: report reviewed, image reviewed Disposition Clinical Impression: Fall, Contusion of right knee Disposition: HOME SELF-CARE Instructions (If sedation given, give patient instructions): Fall Prevention for Older Adults (ED) Additional Instructions: Return to the emergency department with any new, worsening, or concerning symptoms. Take Tylenol as needed for pain relief. Contact your orthopedic office tomorrow morning and let them know what happened and see if they would like to see you for a sooner follow-up appointment. Is patient prescribed a controlled substance at d/c from ED?: No Referrals: Mazin Kumar MD [Primary Care Provider] - 1-2 days Deion West MD [STAFF PHYSICIAN] - 1-2 days Time of Disposition: 11:35
--- NOTE | 2024-06-09 10:35 | XR ---
EXAMINATION TYPE: XR knee complete RT DATE OF EXAM: 06/09/2024 10:05 AM COMPARISON: 05/13/2024 CLINICAL INDICATION: Female, 84 years old with history of Fall; , pain TECHNIQUE: XR knee complete RT 3 views submitted. FINDINGS: Status post total knee arthroplasty changes with hardware in appropriate alignment and in tact. No evidence of fracture. There is prepatellar soft tissue edema noted. IMPRESSION: 1. Prepatellar soft tissue edema. 2. Status post total knee arthroplasty changes with hardware intact and appropriate alignment. No fr actures identified. [facility], , 06/09/2024 10:32 AM
[2024-06-09] MEDS: ACETAMINOPHEN TAB 500 MG TAB PO STA (11:14)
[2024-06-09] MEDS: DIPH,PERTUS(ACELL)TETVAC-LF 0.5 ML VIAL IM ONE (11:15)
== END 2024-06-09 11:59 | disposition home or self-care (01) ==
LOC: EC 09:37
DX: S80.01XA Contusion of right knee, initial encounter (principal); M19.90 Unspecified osteoarthritis, unspecified site; Z88.1 Allergy status to other antibiotic agents; Z91.018 Allergy to other foods; Z23 Encounter for immunization; W01.0XXA Fall on same level from slipping, tripping and stumbling without subsequent striking against object, initial encounter
CPT/HCPCS: 90471; 90715; 99283